=== PATIENT | male | born 1950 | race Caucasian/White ===

== ENCOUNTER 2020-06-01 09:33 | Day surgery (SDC) | payer MEDICARE, SELFPAY ==
[2020-05-26 13:05] VITALS: BMI 25.0
--- NOTE | 2020-05-30 15:24 | P.CONAN_ITS ---
Documented by User: Edilma Last 05/30/20 15:25 HPI - Anesthesia Eval Consult details Narrative: 70yo M for Colonoscopy [facility] Past Medical History Medical History History of depression Hx of tongue cancer Umbilical hernia Surgical History Surgical History History of right inguinal hernia repair Hx of appendectomy Hx of colonoscopy Status post neck dissection Social History Social History Are you a primary workforce investment act career manager to a significant other at home: No Do you presently have visiting nurse or other home services: No Smoking Status: Former smoker Smoking Quit Date: 8 yrs ago Second Hand Smoke Exposure: No Use of substances other than those prescribed or required for medical reasons: Yes Substance Use Frequency: Occasionally Have you been hit, kicked, punched, or otherwise hurt by someone within the past year? If so, by whom?: No Advance Directives: No Advance Directives Information Provided: No Advance Directives on File: No Recently lost weight without trying: No Meds Allergies Allergy/AdvReac Type Severity Reaction Status Date / Time walnut Allergy Severe THROAT Verified 06/01/20 10:04 CLOSES Home Medications Medication Instructions Recorded Confirmed Type cqezkmpysiax-najcgblz-jmfccj 1 tab PO DAILY 05/26/20 05/26/20 History [Multivitamin 50 Plus] Exam Exam Date and Time: May 30, 2020 1524 Height,Weight and Vital Signs: Height 5 ft 5 in Weight 68.039 kg Assessment and Plan Assessment Anesthesia Assessment: Chart Reviewed Documented by User: Emanuel Stein 06/01/20 10:18 [facility] Past Medical History Medical History History of depression Hx of tongue cancer Umbilical hernia Surgical History Surgical History History of right inguinal hernia repair Hx of appendectomy Hx of colonoscopy Status post neck dissection Social History Social History Are you a primary workforce investment act career manager to a significant other at home: No Do you presently have visiting nurse or other home services: No Smoking Status: Former smoker Smoking Quit Date: 8 yrs ago Second Hand Smoke Exposure: No Use of substances other than those prescribed or required for medical reasons: Yes Substance Use Frequency: Occasionally Have you been hit, kicked, punched, or otherwise hurt by someone within the past year? If so, by whom?: No Advance Directives: No Advance Directives Information Provided: No Advance Directives on File: No Recently lost weight without trying: No Meds Allergies Allergy/AdvReac Type Severity Reaction Status Date / Time walnut Allergy Severe THROAT Verified 06/01/20 10:04 CLOSES Home Medications Medication Instructions Recorded Confirmed Type girkbwrwtoew-onpiloiw-fwveej 1 tab PO DAILY 05/26/20 05/26/20 History [Multivitamin 50 Plus] Exam Airway Mallampati Class: II TM Dist: >3cm Neck ROM: Full Loose/Missing/Broken Teeth: No (Poor dentition) Heart: rrr +s1s2 Lungs: cta b/l Assessment and Plan Assessment Anesthesia Assessment: Anesthesia Plan Discussed, Smoking Cess. Discussed and Chart Reviewed Final Anesthetic Review NPO: Yes ASA Class: III Final Preanesthetic Review: No Changes in Pt Med Stat, Meds/Allgs Chart Reviewed, Consent Obtained/Reviewed and Anes Risks/Benef Reviewed Patient Risk: Intermediate Procedure Risk: Low Assessment/Block/Sedation in SS: Assess/Block/Sedation-SS Anesthetic Plan Anesthetic Plan: MAC: Disposition: Standard PACU
[2020-06-01 10:06] VITALS: BP 130/82; PULSE 110; RESP 18; TEMP 36.5; O2SAT 96
[2020-06-01] MEDS: Lactated Ringers 1,000 ML 100 ML IVCONT (10:09)
[2020-06-01 11:38] VITALS: BP 103/65; PULSE 100; RESP 16; TEMP 37.2; O2SAT 100
--- NOTE | 2020-06-01 11:40 | PM.OP ---
Brief Operative Note Date of procedure: 06/01/20 Pre-op diagnosis: Screening Post-op diagnosis: other (Colon polyp, Diverticulosis, Internal hemorrhoids) Procedure: Colonoscopy to cecum with biopsy and removal of polyp Surgeon: Ceasar Altamirano Anesthesia: MAC Estimated blood loss (mL): 3.0 Pathology: other (A. Cecal polyp) Condition: stable Disposition: PACU
[2020-06-01 11:53] VITALS: BP 120/70; PULSE 98; RESP 20; TEMP 36.9; O2SAT 98
--- NOTE | 2020-06-01 12:22 | HO.POSTANES ---
Post Anesthesia Evaluation Post Anesthesia Evaluation Vital Signs: Vital Signs Temp Pulse Resp BP Pulse Ox 06/01/20 11:53 98.4 F 98 20 120/70 98 06/01/20 11:38 98.9 F 100 16 103/65 100 06/01/20 10:06 97.7 F 110 H 18 130/82 96 Anesthesia: Monitored Mental Status: Awake Pain Control: Satisfactory Nausea/Vomiting: None Hydration: Adequate Anesthesia-Related Issues: No Anes. Related Issues
--- NOTE | 2020-06-01 12:41 | OP_ITS ---
SURGEON: Ceasar Altamirano MD INDICATIONS: The patient presents for evaluation of colorectal cancer screening and personal history of tubular adenoma of the colon. Full consent has been obtained from him for this including risks of bleeding and perforation. PREOPERATIVE DIAGNOSIS: POSTOPERATIVE DIAGNOSIS: PROCEDURE PERFORMED: ESTIMATED BLOOD LOSS: COMPLICATIONS: ANESTHESIA: Monitored anesthesia care. ASSISTANTS: SPECIMENS: PREOPERATIVE DIAGNOSES: Colorectal cancer screening and personal history of tubular adenoma of the colon. POSTOPERATIVE DIAGNOSES: Colorectal cancer screening, personal history of tubular adenoma of the colon, small colon polyp, diverticulosis, and internal hemorrhoids. PROCEDURES PERFORMED: Colonoscopy to cecum with biopsy and removal of polyp. DESCRIPTION OF PROCEDURE: The patient was placed in the left lateral decubitus position. The digital rectal exam revealed no abnormalities. The Olympus video pediatric colonoscope was entered into the rectum and advanced easily to the cecum. Once in the cecum, I did identify cecal pouch with appendiceal orifice and a normal-appearing ileocecal valve. There was transillumination of light deep in the right lower quadrant. The entire cecum was well visualized and appeared normal other than a 4 mm polyp, which was biopsied and completely removed with cold biopsy forceps. The scope was slowly withdrawn assessing all mucosal surfaces carefully. Preparation was excellent. I did not visualize any other polyps, colitis, nor angiodysplasia. There was a mild amount of sigmoid diverticulosis. In the rectum, scope was retroflexed visualizing internal hemorrhoids, but no other pathology. The rectal mucosa appeared normal. The scope was straightened and withdrawn from the patient. He tolerated the procedure well and was returned to recovery area in stable condition. IMPRESSION: 1. Colon polyp, status post biopsy removal. 2. Diverticulosis. 3. Internal hemorrhoids. PLAN: The results of the biopsies will be checked. I would recommend a repeat colonoscopy in 5 years for further screening and surveillance. He will otherwise see me on a p.r.n. basis. MD ZINA Barahona/SERGEI / [id number]
== END 2020-06-01 13:00 | disposition home or self-care (01) ==
PROVIDERS: PCP Internal Medicine; Visit Provider Internal Medicine
PROC: 0DJD8ZZ Inspection of Lower Intestinal Tract, Via Natural or Artificial Opening Endoscopic (ICD-10-PCS; CPT 45378; principal; 2020-06-01 10:30)
DX: Z12.11 Encounter for screening for malignant neoplasm of colon (principal); Z86.010 Personal history of colon polyps; D12.0 Benign neoplasm of cecum; K57.30 Diverticulosis of large intestine without perforation or abscess without bleeding; K64.8 Other hemorrhoids; Z85.810 Personal history of malignant neoplasm of tongue; Z87.891 Personal history of nicotine dependence
CPT/HCPCS: 45380; 88305

== ENCOUNTER 2020-09-07 07:35 | Outpatient (REF) | payer MEDICARE, SELFPAY | END 2020-09-07 07:36 | disposition home or self-care (01) | LOC: HO.LAB 07:35 | PROVIDERS: PCP Internal Medicine; Visit Provider Internal Medicine | DX: Z20.822 Contact with and (suspected) exposure to COVID-19 (principal) | CPT/HCPCS: 36415; C9803; U0003; U0005 ==

== ENCOUNTER 2021-03-09 08:19 | Outpatient (REF) | payer MEDICARE, SELFPAY ==
[2021-03-09 10:25] LABS: Basophils Absolute Auto 0.1 X10*3/uL (0.0-0.2); Basophils Percent Auto 0.5 % (0-2); Eosinophils Absolute Auto 0.1 X10*3/uL (0.0-0.4); Eosinophils Percent Auto 0.7 % (0-4); Hematocrit 42.8 % (42-52); Imm Gran Abs Auto 0.08 X10*3/uL (0.00-0.03); Imm Gran Pct Auto 0.5 % (0.0-0.4); Lymphocytes Absolute Auto 1.4 X10*3/uL (1.2-4.9); Lymphocytes Percent Auto 9.4 % (20-40); MANUAL DIFF FLAG SCAN; Mean Corpuscular HGB Conc 32.7 g/dl (31.0-36.0); Mean Corpuscular Hemoglobin 33.3 pg (27.0-33.0); Mean Corpuscular Volume 101.7 fL (80-98); Mean Platelet Volume 8.4 fL (9.4-12.4); Monocytes Absolute Auto 1.7 X10*3/uL (0.1-1.2); Monocytes Percent Auto 11.1 % (2-11); Neutrophils Absolute Auto 11.6 X10*3/uL (2.0-8.3); Neutrophils Percent Auto 77.8 % (45-73); Platelet Count 389 X10*3/uL (160-400); Red Blood Count 4.21 X10*6/uL (4.60-5.80); Red Cell Distribution Width 13.9 % (11.0-16.0); SCAN SMEAR FLAG 1; White Blood Count 14.9 X10*3/uL (4.8-10.8)
[2021-03-09 11:05] LABS: SLIDE REVIEW VERIFIED
[2021-03-09 11:12] LABS: Alanine Aminotransferase 22 U/L (0-40); Albumin Level 3.9 g/dL (3.5-5.0); Alkaline Phosphatase 100 U/L (39-117); Anion Gap 15 (12-20); Aspartate Amino Transferase 42 U/L (5-37); Bilirubin Total 0.9 mg/dL (0.0-1.0); Blood Urea Nitrogen 5 mg/dL (9-16); Calcium 9.3 mg/dL (8.4-10.2); Carbon Dioxide 29 mmol/L (22-29); Chloride 95 mmol/L (96-108); Cholesterol 168 mg/dL; Estimated Glomerular Filt Rate > 60; Glucose Fasting 124 mg/dL (60-99); HDL Cholesterol 100 mg/dL; LDL Cholesterol Calculated 57 mg/dl; Potassium 4.2 mmol/L (3.3-5.1); Sodium 135 mmol/L (135-145); Total Protein 8.6 g/dL (6.5-8.0); Triglycerides 56 mg/dL
[2021-03-09 11:18] LABS: Prostate Specific Antigen 0.64 ng/mL (<0.05-4.0); TSH reflex Free T4 1.62 uIU/mL (0.32-4.0)
== END 2021-03-09 08:20 | disposition home or self-care (01) ==
LOC: HO.10HDL 08:19
PROVIDERS: Visit Provider Nurse Practitioner Family
DX: Z12.5 Encounter for screening for malignant neoplasm of prostate (principal); E78.5 Hyperlipidemia, unspecified
CPT/HCPCS: 36415; 80053; 80061; 84153; 84443; 85025

== ENCOUNTER 2022-01-10 08:50 | Outpatient (REF) | payer MEDICARE, SELFPAY ==
[2022-01-10 10:15] LABS: Basophils Absolute Auto 0.2 X10*3/uL (0.0-0.2); Basophils Percent Auto 0.9 % (0-2); Eosinophils Absolute Auto 0.1 X10*3/uL (0.0-0.4); Eosinophils Percent Auto 0.7 % (0-4); Hematocrit 42.5 % (42.0-52.0); Hemoglobin 14.4 g/dl (14.0-18.0); Imm Gran Abs Auto 0.05 X10*3/uL (0.00-0.03); Imm Gran Pct Auto 0.3 % (0.0-0.4); Lymphocytes Absolute Auto 1.7 X10*3/uL (1.2-4.9); Lymphocytes Percent Auto 9.2 % (20-40); MANUAL DIFF FLAG SCAN; Mean Corpuscular HGB Conc 33.9 g/dl (31.0-36.0); Mean Corpuscular Hemoglobin 34.4 pg (27.0-33.0); Mean Corpuscular Volume 101.4 fL (80.0-98.0); Mean Platelet Volume 9.1 fL (9.4-12.4); Monocytes Absolute Auto 1.7 X10*3/uL (0.1-1.2); Monocytes Percent Auto 9.4 % (2-11); Neutrophils Absolute Auto 14.6 x10*3/uL (2.0-8.3); Neutrophils Percent Auto 79.5 % (45-73); Platelet Count 332 X10*3/uL (160-400); Red Blood Count 4.19 X10*6/uL (4.60-5.80); Red Cell Distribution Width 13.1 % (11.0-16.0); SCAN SMEAR FLAG 1; White Blood Count 18.4 X10*3/uL (4.8-10.8)
[2022-01-10 10:23] LABS: Estimated Average Glucose 100 mg/dL; Hemoglobin A1c % 5.1 %
[2022-01-10 10:36] LABS: Alanine Aminotransferase 25 U/L (0-40); Albumin Level 3.9 g/dL (3.5-5.0); Alkaline Phosphatase 95 U/L (39-117); Anion Gap 17 (12-20); Aspartate Amino Transferase 52 U/L (5-37); Bilirubin Total 0.7 mg/dL (0.0-1.0); Blood Urea Nitrogen 5 mg/dL (9-16); Calcium 8.9 mg/dL (8.4-10.2); Carbon Dioxide 27 mmol/L (22-29); Chloride 95 mmol/L (96-108); Cholesterol 177 mg/dL; Estimated Glomerular Filt Rate > 60; Glucose Random 91 mg/dL (60-115); HDL Cholesterol 101 mg/dL; LDL Cholesterol Calculated 65 mg/dl; Potassium 4.2 mmol/L (3.3-5.1); Sodium 135 mmol/L (135-145); Total Protein 8.8 g/dL (6.5-8.0); Triglycerides 57 mg/dL
[2022-01-10 10:44] LABS: SLIDE REVIEW VERIFIED
[2022-01-10 10:54] LABS: Free T4 (Free Thyroxine) 0.92 ng/dL (0.71-1.85); Prostate Specific Antigen Scr 0.55 ng/mL (<0.05-4.0); Thyroid Stimulating Hormone 0.88 uIU/mL (0.32-4.0)
[2022-01-10 11:10] LABS: Folate 16.9 ng/mL (> or = 4.0); Vitamin B12 392 pg/mL (200-900)
[2022-01-14 19:07] LABS: Testosterone, Total 383 ng/dL (250-1100)
== END 2022-01-10 08:51 | disposition home or self-care (01) ==
LOC: HO.10HDL 08:50
PROVIDERS: Visit Provider Internal Medicine
DX: Z12.5 Encounter for screening for malignant neoplasm of prostate (principal); R73.02 Impaired glucose tolerance (oral); E78.00 Pure hypercholesterolemia, unspecified
CPT/HCPCS: 36415; 80053; 80061; 82607; 82746; 83036; 84153; 84403; 84439; 84443; 85025

== ENCOUNTER 2022-01-24 08:09 | Outpatient (REF) | payer MEDICARE, SELFPAY ==
[2022-01-24 10:36] LABS: MANUAL DIFF FLAG NO
[2022-01-24 10:44] LABS: Basophils Absolute Auto 0.1 X10*3/uL (0.0-0.2); Basophils Percent Auto 1.3 % (0-2); Eosinophils Absolute Auto 0.2 X10*3/uL (0.0-0.4); Eosinophils Percent Auto 2.3 % (0-4); Hematocrit 40.9 % (42.0-52.0); Hemoglobin 13.8 g/dl (14.0-18.0); Imm Gran Abs Auto 0.03 X10*3/uL (0.00-0.03); Imm Gran Pct Auto 0.4 % (0.0-0.4); Lymphocytes Absolute Auto 1.8 X10*3/uL (1.2-4.9); Lymphocytes Percent Auto 26.3 % (20-40); Mean Corpuscular HGB Conc 33.7 g/dl (31.0-36.0); Mean Corpuscular Hemoglobin 33.4 pg (27.0-33.0); Mean Platelet Volume 10.6 fL (9.4-12.4); Monocytes Absolute Auto 0.8 X10*3/uL (0.1-1.2); Monocytes Percent Auto 11.5 % (2-11); Neutrophils Absolute Auto 4.1 x10*3/uL (2.0-8.3); Neutrophils Percent Auto 58.2 % (45-73); Platelet Count 274 X10*3/uL (160-400); Red Blood Count 4.13 X10*6/uL (4.60-5.80); Red Cell Distribution Width 12.7 % (11.0-16.0)
== END 2022-01-24 08:10 | disposition home or self-care (01) ==
LOC: HO.10HDL 08:09
PROVIDERS: Visit Provider Internal Medicine
DX: D72.829 Elevated white blood cell count, unspecified (principal)
CPT/HCPCS: 36415; 85025

== ENCOUNTER 2023-03-02 09:06 | Inpatient (IN) | payer MEDICARE, SELFPAY ==
[2023-03-02] VITALS (8 sets, daily range): BP systolic 120–144; BP diastolic 63–81; PULSE 77–106; RESP 16–20; TEMP 36.4–36.9; O2SAT 93–99; BMI 23.2
--- NOTE | ~2023-03-02 | CT_ITS ---
EXAMINATION: CT HEAD WITHOUT CONTRAST CT CERVICAL SPINE WITHOUT CONTRAST CLINICAL INFORMATION: Fall. Possible head trauma. COMPARISON: Remote CT scan of the head 11/21/2012. TECHNIQUE: Multidetector CT imaging of the head and cervical spine was performed without the use of intravenous contrast. Coronal and sagittal reformatted images were generated at the technologist workstation. This CT examination was performed using dose optimization techniques as appropriate, variously including the following: *Automated exposure control *Adjustment of mA and/or kV according to patient size (this includes techniques or standardized protocols for targeted exams where dose is matched to indication/reason for exam; i.e. extremities or head) *Use of iterative reconstruction technique DLP: 1042 mGy-cm. FINDINGS: CT head: There is no evidence of acute intracranial hemorrhage or territorial infarction. No abnormal mass-effect or midline shift is seen. Eid to white matter differentiation is well preserved. No extra-axial fluid collections are identified. The ventricles and sulci are commensurately prominent consistent with moderate diffuse volume loss, including the posterior fossa structures. There are relatively extensive areas of low-attenuation in the periventricular subcortical white matter, most consistent with chronic microvascular ischemic changes. There are chronic lacunar infarcts in the basal ganglia bilaterally. There have been bilateral lens extractions. There are no acute osseous findings. There appear to be sequelae of relatively recent extractions in the bilateral maxillae. The mastoid air cells are well-aerated. There is minimal mucoperiosteal thickening in the left frontoethmoidal recess CT cervical spine: There is overall straightening of the normal cervical lordosis. There is a retrolisthesis of C3 on C4 and there are retrolistheses of C5 on C6 and C6 on C7. There is multilevel narrowing of intervertebral disc height with marginal endplate osteophytes particularly anteriorly and toward the right at C5-C6 and C6-C7. Vertebral body heights are maintained, and no fractures are demonstrated. The lateral masses of C1 and C2 are normally aligned and the dens is intact. There are severe facet arthropathic changes at multiple levels, most prominent on the left in the upper cervical region. The cervicomedullary junction and spinal cord are grossly unremarkable. The paraspinal soft tissues are unremarkable. The imaged lung apices are clear. CT/CT cervical spine wo IV con IMPRESSION: 1. There are no acute bleeds or territorial infarcts. No masses are demonstrated. 2. There are no acute fractures or subluxations in the cervical spine. There are multilevel spondylitic and facet arthropathic changes. 3. Intracranially, there is diffuse volume loss and there are chronic microvascular ischemic changes and lacunar infarcts.
--- NOTE | ~2023-03-02 | XR_ITS ---
EXAMINATION: XR LUMBOSACRAL SPINE CLINICAL INFORMATION: Back pain COMPARISON: Previous x-ray from 2011 TECHNIQUE: Three views of the lumbosacral spine. FINDINGS: There is mild curvature of the lumbar sacral spine to the right. Bone alignment is otherwise normal. There is a mild compression fracture of the superior endplate of the L1 vertebral body. The bones appear osteopenic. Disc spaces are normal. There is lower lumbar spine facet arthritis. There is atherosclerotic disease. XR/XR lumbar spine 2-3V IMPRESSION: Unremarkable examination. Mild L1 compression fracture. Degenerative changes.
--- NOTE | ~2023-03-02 | XR_ITS ---
EXAMINATION: CR CHEST CLINICAL INFORMATION: Cough. COMPARISON: Chest x-ray dated 11/21/2012. TECHNIQUE: 2 views of the chest were obtained on 4 images. FINDINGS: EKG leads overlie the chest. The cardiomediastinal silhouette is within normal limits in size. Calcification of the aortic arch is seen. Lungs bilaterally are symmetrically hyperinflate with thickening of the airways d, suggesting underlying obstructive lung disease. Patchy consolidation is seen in the right lower lobe, consistent with pneumonia. There is also some more linear appearing opacities in the right middle lobe, possibly atelectasis Mild linear reticular opacities also seen in the left mid and lower lung, consistent with mild atelectasis. No significant effusion or pneumothorax. Osteopenia is suggested. XR/XR chest 2V IMPRESSION: 1. Findings are suspicious for right lower lobe pneumonia. 2. More linear opacities are seen in the right middle lobe and left mid and lower lung, likely representing atelectasis. Follow-up chest x-ray recommended to exclude evolving infiltrates in the right middle lobe and in the left lung base.
--- NOTE | 2023-03-02 09:46 | PC.NURSE ---
patient a&ox3, iv previously inserted by ems, monitoring coordinator applied pt nsr on monitor, vss, pt c/o lower back pain 04/30, abd noted to be firm/distended which patient states is like that all the time, pt also doing radiation for throat ca
--- NOTE | 2023-03-02 10:12 | PC.NURSE ---
seizure precautions placed due to pt feeling he had a seizure prior to fall.
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
--- NOTE | 2023-03-02 11:28 | ECG_ITS ---
Test Reason : FALL Blood Pressure : / mmHG Vent. Rate : 104 BPM Atrial Rate : 104 BPM P-R Int : 168 ms QRS Dur : 072 ms QT Int : 340 ms P-R-T Axes : 082 -29 053 degrees QTc Int : 447 ms Sinus tachycardia with PACs Low voltage QRS Borderline ECG When compared with ECG of 21-NOV-2012 01:58, QRS axis Shifted left Referred By: Eden Haile Electronically Signed By:Ahmet Garcia
[2023-03-02] MEDS: Albuterol/Iprat 2.5/0.5MG 3 ML AMPUL.NEB INHALE (12:02)
[2023-03-02] MEDS: 0.9 % Sodium Chloride 500 ML 999 ML IV (12:06)
[2023-03-02] MEDS: LORazepam 2 MG/ML VIAL 1 MG IVPUSH (12:13)
--- NOTE | 2023-03-02 12:21 | PC.NURSE ---
pt axox4, respirations even and unlabored, sats 97% RA, sinus tachy on monitor 105 bpm, skin wpd, pt responding appropriately, wheezing/crackles noted upon auscultating lung sounds, PERRLA, neuros intact. pt arrived via ems with lower back pain d/t fall out of bed this morning; pt unsure headstrike/loc. pt reports felt shocking sensation before falling out of bed. pt states etoh use; last drink last night; ciwa 0 pt denies hx withdrawal sx. respiratory to bedside. ivf infusing; pt medicated per mar. all needs met at this time, call carlson within reach.
[2023-03-02 12:49] LABS: MANUAL DIFF FLAG NO
[2023-03-02 12:51] LABS: Basophils Percent Auto 0.4 % (0-2); Eosinophils Percent Auto 0.3 % (0-4); Hemoglobin 12.8 g/dl (14.0-18.0); Imm Gran Abs Auto 0.05 X10*3/uL (0.00-0.03); Imm Gran Pct Auto 0.6 % (0.0-0.4); Lymphocytes Absolute Auto 0.4 X10*3/uL (1.2-4.9); Lymphocytes Percent Auto 5.4 % (20-40); Mean Corpuscular HGB Conc 33.7 g/dl (31.0-36.0); Mean Corpuscular Hemoglobin 32.2 pg (27.0-33.0); Mean Corpuscular Volume 95.7 fL (80.0-98.0); Mean Platelet Volume 8.1 fL (9.4-12.4); Monocytes Absolute Auto 0.9 X10*3/uL (0.1-1.2); Neutrophils Absolute Auto 6.6 x10*3/uL (2.0-8.3); Neutrophils Percent Auto 82.3 % (45-73); Platelet Count 209 X10*3/uL (160-400); Red Blood Count 3.97 X10*6/uL (4.60-5.80); Red Cell Distribution Width 13.1 % (11.0-16.0)
[2023-03-02 12:53] LABS: Appearance Urine Clear; Color Urine Yellow; Glucose Urine UA Negative (Negative); Leukocyte Esterase Urine Negative (Negative); Nitrite Urine Negative (Negative); Specific Gravity - Urine <= 1.005 (1.005-1.025); Urine Blood Negative (Negative); Urine Ketones 15 mg/dL (Negative); Urine Protein Negative (Neg-Trace)
[2023-03-02 13:04] LABS: Amphetamine Screen Urine Not Detected (Not Detect); Barbiturates, Urine Not Detected (Not Detect); Benzodiazepines Screen Urine Not Detected (Not Detect); Cannabinoid Screen Urine POSITIVE (Not Detect); Cocaine Screen Urine Not Detected (Not Detect); Fentanyl, urine Not Detected (Not Detect); Opiate Screen Urine Not Detected (Not Detect); Phencyclidine Screen Urine Not Detected (Not Detect)
[2023-03-02 13:06] LABS: Prothrombin Time 11.9 SEC (11.1-13.3)
[2023-03-02 13:08] LABS: Lactic Acid 1.7 mmol/L (0.5-2.0)
[2023-03-02 13:12] LABS: Alanine Aminotransferase 19 U/L (0-40); Albumin Level 3.3 g/dL (3.5-5.0); Alkaline Phosphatase 80 U/L (39-117); Anion Gap 14 (12-20); Aspartate Amino Transferase 40 U/L (5-37); Bilirubin Direct 0.6 mg/dL (0.0-0.5); Bilirubin Total 1.1 mg/dL (0.0-1.0); Blood Urea Nitrogen 5 mg/dL (9-16); Calcium 8.9 mg/dL (8.4-10.2); Carbon Dioxide 25 mmol/L (22-29); Chloride 96 mmol/L (96-108); Creatinine Clr Calc Pharmacy 102.1; Estimated Glomerular Filt Rate > 60; Glucose Random 105 mg/dL (60-115); Magnesium 1.7 mg/dL (1.6-2.6); Potassium 4.1 mmol/L (3.3-5.1); Sodium 131 mmol/L (135-145); Total Protein 7.9 g/dL (6.5-8.0)
[2023-03-02 13:15] LABS: B Type Natriuretic Peptide 111 pg/mL (<100)
[2023-03-02 13:19] LABS: Troponin-I High Sensitivity 6.6 ng/L (<3.5-35.0)
[2023-03-02 13:29] LABS: Ethanol < 10 mg/dL
--- NOTE | 2023-03-02 14:55 | P.HPHOSP_ITS ---
the patient was seen and evaluated with CORBIN Gonzalez. I agree with his note, assessment and plan with the following. 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 Found to have evidence of pneumonia and hyponatremia w alcohol withdrawal. Start Ab of Ceftriaxone and Azithromycin Phenobarb protocol Water restrection , follow BMP for Na Rest of evaluations by PA note. History of Present Illness Date of Service: 03/02/23 Attending physician on admission: Zaira Blackburn Chief Complaint: Generalized weakness, fall Pt is a 72-year-old male with a PMH significant for?tonsillar cancer started on chemotherapy 2 1/2 weeks ago, fatty liver, chronic back and hip pain, and alcohol use disorder who presents to the ED with?generalized weakness and evaluation for recent fall out of bed this morning. Patient states that yesterday during the day he had chills, subjective fever, and diaphoresis, which seemingly resolved by the end of the night. Sometime during the middle of the night patient said that ?something happened? where he was ?blown off the bed? and then stuck under furniture for a couple of hours. Patient was unable to elaborate on events. Cold patient's who further clarified, stating that approximately 130 in the morning patient started yelling for his who came into his room and saw him half sitting up in half lying on the floor. At that time he stated that a ?shock? went up and down his back which jolted him out of bed. was able to lay the patient down on the floor, but took until 06:00 to convince him to come to the hospital. reports that for the past 3-4 days patient has had difficulty walking and eating and drinking very little except for alcohol d/t feeling like his tongue is on fire. Patient has a long history of heavy alcohol use, apparently drinking 20+ beers daily for the past 30+ years. However patient has recently started radiation for tonsillar cancer and now consumes around 10 beers a day. states patient is mostly inactive during the day just sitting in his kitchen chair watching TV and drinking beer. Both patient and deny any history of alcohol withdrawal or history of withdrawal seizures. Patient reports feeling fatigued ever since starting radiation therapy. Apparently had an injury to his back many years ago and has experienced chronic lower back and hip pain since then, but moderately well controlled until this past week. Denies chest pain/pressure, palpitations. Chronic nonproductive cough. Denies hallucinations. No abdominal pain. In the ED patient was afebrile but tachycardic up to 106 and hypertensive at 140/81, satting at 99% on RA. Labs were significant for H&H 12.8/38.0, sodium of 131, CPK 454. Tox screen negative for ethyl alcohol. UA negative for UTI. CXR showed suspicion for right lower lobe pneumonia and linear opacity seen in the right middle lobe and left mid and lower lung, likely atelectasis but cannot exclude evolving infiltrates. X-ray of lumbar spine unremarkable with mild L1 compression fracture and deep degenerative changes. CT?of head showed no acute bleeds, territorial infarcts, or masses. Also showed diffuse intracranial vol ume loss and chronic microvascular ischemic changes and lacunar infarcts. CT of cervical spine found no acute fracture or subluxation, but did show multilevel spondylitic and facet arthropathic changes. EKG demonstrated sinus tachycardia of 104 with no evidence of ST or depressions. Pt was treated with DuoNeb, IVF, lorazepam, ceftriaxone, azithromycin, omeprazole, and start on phenobarb protocol. Pt will be admitted to the hospital under observation on telemetry for generalized weakness in the setting of community-acquired pneumonia and alcohol withdrawal. 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 Father No problems noted. Surgical History History of cataract surgery History of right inguinal hernia repair Hx of appendectomy Hx of colonoscopy Status post neck dissection Social History Housing: House Are you a primary customer care agent to a significant other at home: No Do you presently have visiting nurse or other home services: No Alcohol intake: never Patient Tobacco Use Status: Former Tobacco user Tobacco use type: Cigarette Years Smoked: stopped 2012 Smoked in Last 30 Days: No e-Cigarette/Vaping Use: Never Used Second Hand Smoke Exposure: No Use of substances other than those prescribed or required for medical reasons: No Advance Directives: No service: No Current occupational status: retired Meds Allergies Allergy/AdvReac Type Severity Reaction Status Date / Time walnut Allergy Severe THROAT Verified 03/02/23 09:37 CLOSES Active Medications: Current Medications Azithromycin 500 mg/ Sodium (Chloride) 250 mls @ 125 mls/hr IV ONCE ONE Stop: 03/02/23 16:17 Pharmacy Consult (Consult Rx Etoh Phenob Im/Po) 1 each MISCELLANE ONCE PRN; Protocol PRN Reason: Consult order Pharmacy Consult (Consult Rx Perform Med Rec) 1 each MISCELLANE ONCE STA Stop: 03/02/23 14:38 Phenobarbital (Phenobarbital 15 Mg Tablet) 45 mg PO BID KARISHMA; Protocol Stop: 03/04/23 21:01 Phenobarbital (Phenobarbital 30 Mg Tablet) 30 mg PO BID KARISHMA; Protocol Stop: 03/06/23 21:01 Phenobarbital (Phenobarbital 30 Mg Tablet) 30 mg PO DAILY KARISHMA; Protocol Stop: 03/08/23 09:01 Phenobarbital Sodium (Phenobarbital Sodium 130 Mg/Ml Im Once) 255 mg IM ONCE ONE; Protocol Stop: 03/02/23 15:01 Phenobarbital Sodium (Phenobarbital Sodium 130 Mg/Ml Vial Im Q3hx2) 191 mg IM Q3H KARISHMA; Protocol Stop: 03/02/23 21:01 Home Medications Medication Instructions Recorded Confirmed Last Taken Type ltxyekfkpiit-kexafrfe-iebnxc 1 tab PO DAILY 05/26/20 03/02/23 03/01/23 History tablet (Multivitamin 50 Plus tablet) Magic Mouthwash W/ Nystatin 10 ml PO Q4H PRN throat discomfort 03/02/2302/19 History fluconazole 200 mg tablet 200 mg PO DAILY 03/02/23 03/02/23 03/01/23 History folic acid 1 mg tablet 1 mg PO DAILY 03/02/23 03/02/23 03/01/23 History thiamine HCl (vitamin B1) 100 mg 100 mg PO DAILY 03/02/23 03/02/23 03/01/23 History tablet (Vitamin B-1) Physical Exam Vital Signs and Narrative: Vital Signs: Last Vital Signs Temp 97.8 F 03/02/23 09:37 Pulse 106 H 03/02/23 12:17 Resp 16 03/02/23 12:17 BP 140/77 H 03/02/23 12:17 Pulse Ox 96 03/02/23 12:17 O2 Del Method Room Air 03/02/23 12:17 BMI result Body Mass Index 23.2 Constitutional: Alert, somnolent but arousable, frail-looking, in no acute distress. Mental Status: Oriented to person, place and time. Eyes: Pupils are equal, round, and reactive to light. Ear, Nose, and Throat: Oropharynx clear, mucous membranes moist. Ears and nose without deformities. Trachea midline. Respiratory: Mild diffuse expiratory rhonchi. Cardiovascular: S1, S2, tachy. No murmurs, rubs, or gallops. Gastrointestinal: Abdomen soft, non-tender, non-distended. Normal bowel sounds. Neurologic: Cranial nerves II-XII are grossly intact bilaterally. No focal neurological deficits. Moves all extremities spontaneously. Skin: No rashes or lesions noted. Musculoskeletal: No cyanosis or clubbing. Extremities: No edema. Psychiatric: Normal mood and affect. Results Labs 03/02/23 12:44 03/02/23 12:44 Labs: Laboratory Results - last 24 hr 03/02/23 03/02/23 03/02/23 12:44 12:44 12:44 MCV 95.7 MCH 32.2 MCHC 33.7 RDW 13.1 Plt Count 209 MPV 8.1 L Immature Gran % (Auto) 0.6 H Neut % (Auto) 82.3 H Lymph % (Auto) 5.4 L [place] % (Auto) 11.0 Eos % (Auto) 0.3 Baso % (Auto) 0.4 Lymph # (Auto) 0.4 L [place] # (Auto) 0.9 Eos # (Auto) 0.0 Baso # (Auto) 0.0 Abs Immat Gran (auto) 0.05 H Absolute Neuts (auto) 6.6 Absolute Nucleated RBC 0.000 Nucleated RBC % (auto) 0.0 PT 11.9 INR 1.0 Anion Gap 14 Estim Creat Clear Calc 102.1 Estimated GFR > 60 Random Glucose 105 Lactic Acid Calcium 8.9 Magnesium 1.7 Total Bilirubin 1.1 H Direct Bilirubin 0.6 H AST 40 H ALT 19 Alkaline Phosphatase 80 Total Creatine Kinase 454 H B-Natriuretic Peptide Total Protein 7.9 Albumin 3.3 L Urine Color Urine Appearance Urine pH Ur Specific [place] Urine Protein Urine Glucose (UA) Urine Ketones Urine Blood Urine Nitrite Ur Leukocyte Esterase Urine Opiates Screen Urine Fentanyl Screen Ur Barbiturates Screen Ur Phencyclidine Scrn Ur Amphetamines Screen U Benzodiazepines Scrn Urine Cocaine Screen U Marijuana (THC) Screen Ethyl Alcohol 03/02/23 03/02/23 03/02/23 12:44 12:44 12:44 MCV MCH MCHC RDW Plt Count MPV Immature Gran % (Auto) Neut % (Auto) Lymph % (Auto) [place] % (Auto) Eos % (Auto) Baso % (Auto) Lymph # (Auto) [place] # (Auto) Eos # (Auto) Baso # (Auto) Abs Immat Gran (auto) Absolute Neuts (auto) Absolute Nucleated RBC Nucleated RBC % (auto) PT INR Anion Gap Estim Creat Clear Calc Estimated GFR Random Glucose Lactic Acid 1.7 Calcium Magnesium Total Bilirubin Direct Bilirubin AST ALT Alkaline Phosphatase Total Creatine Kinase B-Natriuretic Peptide 111 H Total Protein Albumin Urine Color Urine Appearance Urine pH Ur Specific [place] Urine Protein Urine Glucose (UA) Urine Ketones Urine Blood Urine Nitrite Ur Leukocyte Esterase Urine Opiates Screen Urine Fentanyl Screen Ur Barbiturates Screen Ur Phencyclidine Scrn Ur Amphetamines Screen U Benzodiazepines Scrn Urine Cocaine Screen U Marijuana (THC) Screen Ethyl Alcohol < 10 03/02/23 03/02/23 12:44 12:44 MCV MCH MCHC RDW Plt Count MPV Immature Gran % (Auto) Neut % (Auto) Lymph % (Auto) [place] % (Auto) Eos % (Auto) Baso % (Auto) Lymph # (Auto) [place] # (Auto) Eos # (Auto) Baso # (Auto) Abs Immat Gran (auto) Absolute Neuts (auto) Absolute Nucleated RBC Nucleated RBC % (auto) PT INR Anion Gap Estim Creat Clear Calc Estimated GFR Random Glucose Lactic Acid Calcium Magnesium Total Bilirubin Direct Bilirubin AST ALT Alkaline Phosphatase Total Creatine Kinase B-Natriuretic Peptide Total Protein Albumin Urine Color Yellow Urine Appearance Clear Urine pH 7.0 Ur Specific [place] <= 1.005 Urine Protein Negative Urine Glucose (UA) Negative Urine Ketones 15 Urine Blood Negative Urine Nitrite Negative Ur Leukocyte Esterase Negative Urine Opiates Screen Not Detected Urine Fentanyl Screen Not Detected Ur Barbiturates Screen Not Detected Ur Phencyclidine Scrn Not Detected Ur Amphetamines Screen Not Detected U Benzodiazepines Scrn Not Detected Urine Cocaine Screen Not Detected U Marijuana (THC) Screen POSITIVE H Ethyl Alcohol Imaging Radiologist's Impressions: Impressions Chest X-Ray 03/02/23 11:47 IMPRESSION: 1. Findings are suspicious for right lower lobe pneumonia. 2. More linear opacities are seen in the right middle lobe and left mid and lower lung, likely representing atelectasis. Follow-up chest x-ray recommended to exclude evolving infiltrates in the right middle lobe and in the left lung base. Lumbar Spine X-Ray 03/02/23 11:49 IMPRESSION: Unremarkable examination. Mild L1 compression fracture. Degenerative changes. Cervical Spine CT 03/02/23 12:00 IMPRESSION: 1. There are no acute bleeds or territorial infarcts. No masses are demonstrated. 2. There are no acute fractures or subluxations in the cervical spine. There are multilevel spondylitic and facet arthropathic changes. 3. Intracranially, there is diffuse volume loss and there are chronic microvascular ischemic changes and lacunar infarcts. Head CT 03/02/23 12:00 IMPRESSION: 1. There are no acute bleeds or territorial infarcts. No masses are demonstrated. 2. There are no acute fractures or subluxations in the cervical spine. There are multilevel spondylitic and facet arthropathic changes. 3. Intracranially, there is diffuse volume loss and there are chronic microvascular ischemic changes and lacunar infarcts. Assessment and Plan (1) Pneumonia: Status: Acute (2) Alcohol dependence: Status: Acute Plan Pt is a 72-year-old male with a PMH significant for?tonsillar cancer started on chemotherapy 2 1/2 weeks ago, fatty liver, chronic back and hip pain, and alcohol use disorder who presents to the ED with?generalized weakness and evaluation for recent fall out of bed this morning. Pt will be admitted to the hospital under observation on telemetry for generalized weakness in the setting of community-acquired pneumonia and alcohol withdrawal. Pneumonia CXR suspicious for right lower lobe pneumonia CXR with linear opacities in right middle lobe and left mid and lower lung infiltrates, likely atelectasis but not able to rule out infiltrates Ceftriaxone, azithromycin, started 03/02/2023 Acute alcohol withdrawal Pt with 30+ year hx of drinking 20+ beers daily, now down to 10 beers daily d/t dysphagia secondary to tonsillar cancer currently on radiation 5 days a week No tremors noted, does not seem to be responding to visual auditory hallucinations Phenobarb protocol Daily multivitamin, folic acid, thiamine, Famotidine 20 mg p.o. b.i.d. Follow Mag jeanine, BMP IVF: Lactated Ringer's CIWA scale Seizure protocols Addiction Medicine consult Monitor on telemetry Hyponatremia Sodium 131 at time of presentation Patient given IVF in ED, placed on maintenance fluids Follow BMP Generalized weakness/deconditioning Multifactorial: Patient started radiation for tonsillar cancer 5 days a week 2 1/2 weeks ago, heavy alcohol use daily, reduced p.o. intake of solids and any other fluids, little ambulation/exercise, pneumonia Pt fell out of bed earlier this morning, has been having difficulty ambulating at home past 4-5 days PT consult Elevated CPK Likely secondary to fall Patient receiving IVF Acute on chronic back pain Analgesics for pain management Full Code Attending:?Dr. Blackburn DVT Prophylaxis: Lovenox Pt will be admitted to the hospital under observation on telemetry for generalized weakness in the setting of community-acquired pneumonia and alcohol withdrawal. Time Spent With Patient Time: Total time managing care of this patient today ____ minutes. Quality Stroke Does the patient have a stroke diagnosis?: No VTE Prior VTE?: No VTE Risk Level:: Medical - moderate - high VTE Device Contraindication: Treatment Not Indicated VTE Drug Contraindication: N/A - Med Ordered
[2023-03-02] MEDS: cefTRIAXone sodium 1 GM in 0.9 % Sodium Chloride 50 ML IV (15:12)
[2023-03-02] MEDS: PHENobarbitaL sodium 130 MG/ML IM ONCE 255 MG IM (15:12)
[2023-03-02 15:35] LABS: Troponin-I High Sensitivity 4.8 ng/L (<3.5-35.0)
--- NOTE | 2023-03-02 15:36 | PC.NURSE ---
1st abx hung; order for blood cultures placed post administration of abx.
--- NOTE | 2023-03-02 15:48 | PHA.MEDREC ---
Pharmacy Consult ? Medication Reconciliation Pharmacy has completed the medication reconciliation. Spoke to patient to confirm meds. Patient takes magic mouthwash with nystatin.
[2023-03-02] MEDS: Azithromycin 500 MG in 0.9 % Sodium Chloride 250 ML 125 MG IV (16:46)
[2023-03-02] MEDS: Thiamine HCL 100 MG TABLET PO (16:49)
[2023-03-02] MEDS: Omeprazole 20 MG CAPSULE.DR PO (16:49)
[2023-03-02] MEDS: Folic Acid 1 MG TABLET PO (16:49)
[2023-03-02] MEDS: Multivitamin TABLET 1 TAB PO (16:49)
[2023-03-02] MEDS: Morphine Sulfate 4 MG/ML CARTRIDGE IVPUSH (17:01)
--- NOTE | 2023-03-02 17:20 | PC.NURSE ---
report given to [facility] nurse
--- NOTE | 2023-03-02 17:26 | MHC.EDTECH ---
Sent blood culture bottels to lab around 1625pm. I called lab around 1640 they stated they did received the blood cultures but have not received them in the computer. It is 1727pm and still shows pending, not received. SG
[2023-03-02] MEDS: PHENobarbitaL sodium 130 MG/ML VIAL IM Q3Hx2 191 MG IM ×2 (18:47→23:02)
[2023-03-02] MEDS: Enoxaparin Sodium 40 MG/0.4 ML SYRINGE SUBCUT (18:48)
[2023-03-02] MEDS: 0.9 % Sodium Chloride 1,000 ML 100 ML IVCONT (18:49)
[2023-03-02] MEDS: 0.9 % Sodium Chloride Flush 3 ML SYRINGE IVFLUSH (23:07)
[2023-03-03] VITALS (8 sets, daily range): BP systolic 133–151; BP diastolic 67–83; PULSE 93–100; RESP 18–20; TEMP 36.4–37.7; O2SAT 93–96
[2023-03-03] MEDS: 0.9 % Sodium Chloride 1,000 ML 100 ML IVCONT ×3 (01:57→21:08)
[2023-03-03] MEDS: Omeprazole 20 MG CAPSULE.DR PO (05:32)
[2023-03-03 06:48] LABS: Hematocrit 39.5 % (42.0-52.0); Hemoglobin 13.1 g/dl (14.0-18.0); Mean Corpuscular HGB Conc 33.2 g/dl (31.0-36.0); Mean Corpuscular Hemoglobin 32.6 pg (27.0-33.0); Mean Corpuscular Volume 98.3 fL (80.0-98.0); Mean Platelet Volume 8.7 fL (9.4-12.4); Platelet Count 208 X10*3/uL (160-400); Red Blood Count 4.02 X10*6/uL (4.60-5.80); Red Cell Distribution Width 13.4 % (11.0-16.0); White Blood Count 8.9 X10*3/uL (4.8-10.8)
[2023-03-03 06:55] LABS: Anion Gap 17 (12-20); Blood Urea Nitrogen 3 mg/dL (9-16); Calcium 8.7 mg/dL (8.4-10.2); Carbon Dioxide 20 mmol/L (22-29); Chloride 98 mmol/L (96-108); Creatinine Clr Calc Pharmacy 115.8; Estimated Glomerular Filt Rate > 60; Glucose Random 79 mg/dL (60-115); Magnesium 1.8 mg/dL (1.6-2.6); Potassium 3.7 mmol/L (3.3-5.1); Sodium 131 mmol/L (135-145)
[2023-03-03] MEDS: Fluconazole 100 MG TABLET 200 MG PO (08:34)
[2023-03-03] MEDS: PHENobarbitaL 15 MG TABLET 45 MG PO ×2 (08:34→21:08)
[2023-03-03] MEDS: Thiamine HCL 100 MG TABLET PO (08:34)
[2023-03-03] MEDS: 0.9 % Sodium Chloride Flush 3 ML SYRINGE IVFLUSH ×3 (08:34→21:08)
[2023-03-03] MEDS: Folic Acid 1 MG TABLET PO (08:34)
[2023-03-03] MEDS: Multivitamin TABLET 1 TAB PO (08:34)
--- NOTE | 2023-03-03 09:44 | MHC.CM.PN ---
CM made multiple attempt to meet with Patient but Patient continue to appear to be sleeping soundly. CM spoke with /HCP/Tory @ [phone] and addressed IMM with her (original will be mailed certified letter to Tory and a copy has been placed on the chart). Patient lives in a house with his /HCP and he required no DME MANAGER MEDIA. Patient is documented to be a 2 assist and may benefit from a PT eval to assist with disposition(home is the goal). Patient has been receiving Radiation X 2 and a half weeks, 5 days/week a [facility]. PCP is Dr. Sydnee Parmar.
[2023-03-03] MEDS: Acetaminophen 325 MG TABLET 650 MG PO (11:35)
--- NOTE | 2023-03-03 12:19 | PM.EVENT ---
Event Note Date of Service: 03/03/23 Event Note: Addiction consult placed Chart reviewed, patient will be seen Sunday 03/04 Time Spent With Patient Time: Total time managing care of this patient today ____ minutes.
[2023-03-03] MEDS: cefTRIAXone sodium 1 GM in 0.9 % Sodium Chloride 50 ML IV (16:11)
[2023-03-03] MEDS: Enoxaparin Sodium 40 MG/0.4 ML SYRINGE SUBCUT (16:35)
[2023-03-03] MEDS: Azithromycin 500 MG in 0.9 % Sodium Chloride 250 ML 125 MG IV (16:35)
--- NOTE | 2023-03-03 18:37 | HO.PM.IMPN ---
Subjective Subjective Date of Service: 03/03/23 Interval History: Patient has been more somnolent since last night Arousable, but falls quickly back asleep after opening his eyes Minimally responsive to questions Does not have any acute complaints outside of dysphagia/odynophagia, still wants to attend radiation tomorrow Denies abdominal pain Has been experiencing urinary retention, patient's straight cathed last night for over 1000 mL, current bladder scan shows 700 mL Review of Systems Dysphagia/odynophagia Denies abdominal pain No chest pain/pressure, palpitations Physical Exam Vital Signs: Vital Signs: Last Vital Signs Temp 99.6 F 03/03/23 15:21 Pulse 94 03/03/23 15:12 Resp 20 03/03/23 15:12 BP 141/72 H 03/03/23 15:12 Pulse Ox 96 03/03/23 15:12 O2 Del Method Room Air 03/03/23 15:12 BMI result Body Mass Index 23.2 General: Alert, somnolent but arousable, easily falls back asleep, frail-looking, no acute distress Resp: Diffuse expiratory rhonchi CVS: S1, S2, RRR GI: +BS, NT, mild distention Skin: No rash Neuro: Cranial nerves II-XII grossly intact bilaterally. Motor grossly intact bilaterally Extremities: No edema Objective Data Active Medications Acetaminophen (Acetaminophen 325 Mg Tablet) 650 mg PO Q6H PRN PRN Reason: Pain, Mild (Pain Scale 1-3) Last Admin: 03/03/23 11:35 Dose: 650 mg Documented By: CATE Docusate Sodium (Docusate Sodium 100 Mg Capsule) 100 mg PO DAILY PRN PRN Reason: Constipation Enoxaparin Sodium (Enoxaparin Sodium 40 Mg/0.4 Ml Syringe) 40 mg SUBCUT Q24H [facility] Last Admin: 03/03/23 16:35 Dose: 40 mg Documented By: CATE Fluconazole (Fluconazole 100 Mg Tablet) 200 mg PO DAILY [facility] Last Admin: 03/03/23 08:34 Dose: 200 mg Documented By: CATE Folic Acid (Folic Acid 1 Mg Tablet) 1 mg PO DAILY [facility] Last Admin: 03/03/23 08:34 Dose: 1 mg Documented By: CATE Ceftriaxone Sodium 1 gm/ (Sodium Chloride) 50 mls @ 100 mls/hr IV Q24H [facility] Last Infusion: 08/13/23 17:03 Dose: 0 mls/hr Documented By: CATE Azithromycin 500 mg/ Sodium (Chloride) 250 mls @ 125 mls/hr IV Q24H [facility] Last Admin: 03/03/23 16:35 Dose: 125 mls/hr Documented By: CATE Sodium Chloride (Ns) 1,000 mls @ 100 mls/hr IVCONT .Q10H [facility] Last Admin: 03/03/23 11:13 Dose: 100 mls/hr Documented By: PJ Multivitamins/Vitamin C (Multivitamin Tablet) 1 tab PO DAILY [facility] Last Admin: 03/03/23 08:34 Dose: 1 tab Documented By: CATE Omeprazole (Omeprazole 20 Mg Capsule.Dr) 20 mg PO DAILY@0630 [facility] Last Admin: 03/03/23 05:32 Dose: 20 mg Documented By: MAJOR Pharmacy Consult (Consult Rx Etoh Phenob Im/Po) 1 each MISCELLANE ONCE PRN; Protocol PRN Reason: Consult order Phenobarbital (Phenobarbital 15 Mg Tablet) 45 mg PO BID [facility]; Protocol Stop: 03/04/23 21:01 Last Admin: 03/03/23 08:34 Dose: 45 mg Documented By: CATE Phenobarbital (Phenobarbital 30 Mg Tablet) 30 mg PO BID [facility]; Protocol Stop: 03/06/23 21:01 Phenobarbital (Phenobarbital 30 Mg Tablet) 30 mg PO DAILY [facility]; Protocol Stop: 03/08/23 09:01 Sodium Chloride (0.9 % Sodium Chloride Flush 3 Ml Syringe) 3 ml IVFLUSH QSHIFT [facility] Last Admin: 03/03/23 16:11 Dose: 3 ml Documented By: CATE Thiamine HCl (Thiamine Hcl 100 Mg Tablet) 100 mg PO DAILY [facility] Last Admin: 03/03/23 08:34 Dose: 100 mg Documented By: CATE Labs 03/03/23 06:24 03/03/23 06:24 Labs: Laboratory Results - last 24 hr 03/03/23 03/03/23 06:24 06:24 MCV 98.3 H MCH 32.6 MCHC 33.2 RDW 13.4 Plt Count 208 MPV 8.7 L Absolute Nucleated RBC 0.000 Nucleated RBC % (auto) 0.0 Anion Gap 17 Estim Creat Clear Calc 115.8 Estimated GFR > 60 Random Glucose 79 Calcium 8.7 Magnesium 1.8 Microbiology Microbiology Results: Microbiology 03/02/23 16:21 Blood Culture - Preliminary Blood - Venous No growth after 24 hours. 03/02/23 16:21 Blood Culture - Preliminary Blood - Venous No growth after 24 hours. 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 Pt was admitted to the hospital under observation on telemetry for generalized weakness in the setting of community-acquired pneumonia and alcohol withdrawal. Pneumonia CXR suspicious for right lower lobe pneumonia CXR with linear opacities in right middle lobe and left mid and lower lung infiltrates, likely atelectasis but not able to rule out infiltrates Continue Ceftriaxone, azithromycin, started 03/02/2023 Acute alcohol withdrawal Pt with 30+ year hx of drinking 20+ beers daily, now down to 10 beers daily d/t dysphagia secondary to tonsillar cancer currently on radiation 5 days a week No tremors noted, does not seem to be responding to visual auditory hallucinations Continue phenobarb protocol Daily multivitamin, folic acid, thiamine, Famotidine 20 mg p.o. b.i.d. Follow Mag jeanine, BMP IVF: normal saline CIWA scale Seizure protocols Addiction Medicine consult Monitor on telemetry Abdominal distention Pt seems mildly more distended than last night Pt denies abdominal pain Monitor, get imaging as warranted Urinary retention Pt had 1000 ml draining via straight cath last night, another 700 ml this afternoon Bladder scan and straight cath as necessary when bladder shows > 350-400ml Hyponatremia Sodium 131 at time of presentation, repeat 131 Patient given IVF in ED, placed on maintenance fluids Follow BMP Generalized weakness/deconditioning Multifactorial:? Patient started radiation for tonsillar cancer 5 days a week 2 1/2 weeks ago, heavy alcohol use daily, reduced p.o. intake of solids and any other fluids, little ambulation/exercise, pneumonia Pt fell out of bed earlier this morning, has been having difficulty ambulating at home past 4-5 days Pt currently nonabulatory, very weak PT consult Nutrition consult Elevated CPK Likely secondary to fall Patient receiving IVF Acute on chronic back pain Analgesics for pain management Full Code Attending:?Dr. Yeboah DVT Prophylaxis: Lovenox Pt require continued hospitalization d/t need for IV abx for pneumonia and PT evaluation for generalized weakness and deconditioning. Time Spent With Patient Time: Total time managing care of this patient today ____ minutes. Quality Stroke Does the patient have a stroke diagnosis?: No VTE Prior VTE?: No VTE Risk Level:: Medical - moderate - high VTE Device Contraindication: Treatment Not Indicated VTE Drug Contraindication: N/A - Med Ordered
[2023-03-04 02:55] VITALS: BP 137/77; PULSE 95; RESP 20; TEMP 36.8; O2SAT 94
[2023-03-04] MEDS: 0.9 % Sodium Chloride 1,000 ML 100 ML IVCONT (05:54)
[2023-03-04] MEDS: Omeprazole 20 MG CAPSULE.DR PO (05:54)
[2023-03-04 07:42] VITALS: BP 145/81; PULSE 92; RESP 16; TEMP 37.3; O2SAT 95
[2023-03-04] MEDS: 0.9 % Sodium Chloride Flush 3 ML SYRINGE IVFLUSH ×2 (08:13→15:07)
[2023-03-04] MEDS: Thiamine HCL 100 MG TABLET PO (08:13)
[2023-03-04] MEDS: Folic Acid 1 MG TABLET PO (08:13)
[2023-03-04] MEDS: Fluconazole 100 MG TABLET 200 MG PO (08:13)
[2023-03-04] MEDS: Multivitamin TABLET 1 TAB PO (08:13)
[2023-03-04] MEDS: PHENobarbitaL 15 MG TABLET 45 MG PO ×2 (08:13→21:14)
[2023-03-04] MEDS: Docusate Sodium 100 MG CAPSULE PO (08:19)
[2023-03-04 09:23] LABS: Anion Gap 15 (12-20); Blood Urea Nitrogen 3 mg/dL (9-16); Calcium 8.5 mg/dL (8.4-10.2); Carbon Dioxide 23 mmol/L (22-29); Chloride 91 mmol/L (96-108); Creatinine Clr Calc Pharmacy 105.7; Estimated Glomerular Filt Rate > 60; Glucose Random 86 mg/dL (60-115); Magnesium 1.6 mg/dL (1.6-2.6); Potassium 3.3 mmol/L (3.3-5.1); Sodium 126 mmol/L (135-145)
[2023-03-04 11:16] VITALS: BP 131/81; PULSE 94; RESP 16; TEMP 37.6; O2SAT 95
[2023-03-04 11:36] VITALS: BMI 23.2
--- NOTE | 2023-03-04 11:41 | MHC.CLN ---
RE: CONSULT PT WITH INCREASED NUTRITION RISK R/T CHRONIC POOR PO INTAKE SECONDARY TO ETOH ABUSE AND NEW DX TONSILLAR CA WITH ACTIVE CHEMO AND RAD TX DIET RX: REGULAR-APPROPRIATE MD STARTED ENSURE TID TO INCREASE KCALS SUPP TO PROVIDE 1050KCALS, 60G PROTEIN MONITOR PO INTAKE CLOSELY SEE ALSO FULL CLINICAL NUTRITION ASSESSMENT
--- NOTE | 2023-03-04 12:11 | HO.PM.IMPN ---
Subjective Subjective Date of Service: 03/04/23 Interval History: follow up Fall, weakness more awake today no pain Review of Systems Dysphagia/odynophagia Denies abdominal pain No chest pain/pressure, palpitations Physical Exam Vital Signs: Vital Signs: Last Vital Signs Temp 99.7 F 03/04/23 11:16 Pulse 94 03/04/23 11:16 Resp 16 03/04/23 11:16 BP 131/81 03/04/23 11:16 Pulse Ox 95 03/04/23 11:16 O2 Del Method Room Air 03/04/23 11:16 BMI result Body Mass Index 23.2 Appearing in no acute distress lung sounds are clear to auscultation heart regular rate rhythm, clear S1, S2 positive bowel sounds, abdomen is soft, nontender neuro patient is alert x3, no focal deficits Objective Data Active Medications Acetaminophen (Acetaminophen 325 Mg Tablet) 650 mg PO Q6H PRN PRN Reason: Pain, Mild (Pain Scale 1-3) Last Admin: 03/03/23 11:35 Dose: 650 mg Documented By: CATE Albuterol/Ipratropium (Albuterol/Iprat 2.5/0.5mg 3 Ml Ampul.Neb) 3 ml INHALE RQ4H WHILE AWAKE PRN PRN Reason: Shortness of Breath/Wheezing Docusate Sodium (Docusate Sodium 100 Mg Capsule) 100 mg PO DAILY PRN PRN Reason: Constipation Last Admin: 03/04/23 08:19 Dose: 100 mg Documented By: PJ Enoxaparin Sodium (Enoxaparin Sodium 40 Mg/0.4 Ml Syringe) 40 mg SUBCUT Q24H [facility] Last Admin: 03/03/23 16:35 Dose: 40 mg Documented By: CATE Fluconazole (Fluconazole 100 Mg Tablet) 200 mg PO DAILY [facility] Last Admin: 03/04/23 08:13 Dose: 200 mg Documented By: PJ Folic Acid (Folic Acid 1 Mg Tablet) 1 mg PO DAILY [facility] Last Admin: 03/04/23 08:13 Dose: 1 mg Documented By: PJ Ceftriaxone Sodium 1 gm/ (Sodium Chloride) 50 mls @ 100 mls/hr IV Q24H [facility] Last Infusion: 03/03/23 17:03 Dose: 0 mls/hr Documented By: CATE Azithromycin 500 mg/ Sodium (Chloride) 250 mls @ 125 mls/hr IV Q24H [facility] Last Infusion: 03/03/23 18:51 Dose: 0 mls/hr Documented By: CATE Multivitamins/Vitamin C (Multivitamin Tablet) 1 tab PO DAILY [facility] Last Admin: 03/04/23 08:13 Dose: 1 tab Documented By: PJ Omeprazole (Omeprazole 20 Mg Capsule.Dr) 20 mg PO DAILY@0630 [facility] Last Admin: 03/04/23 05:54 Dose: 20 mg Documented By: JOHN Pharmacy Consult (Consult Rx Etoh Phenob Im/Po) 1 each MISCELLANE ONCE PRN; Protocol PRN Reason: Consult order Phenobarbital (Phenobarbital 15 Mg Tablet) 45 mg PO BID [facility]; Protocol Stop: 03/04/23 21:01 Last Admin: 03/04/23 08:13 Dose: 45 mg Documented By: PJ Phenobarbital (Phenobarbital 30 Mg Tablet) 30 mg PO BID [facility]; Protocol Stop: 03/06/23 21:01 Phenobarbital (Phenobarbital 30 Mg Tablet) 30 mg PO DAILY [facility]; Protocol Stop: 03/08/23 09:01 Sodium Chloride (0.9 % Sodium Chloride Flush 3 Ml Syringe) 3 ml IVFLUSH QSHIFT [facility] Last Admin: 03/04/23 08:13 Dose: 3 ml Documented By: PJ Thiamine HCl (Thiamine Hcl 100 Mg Tablet) 100 mg PO DAILY [facility] Last Admin: 03/04/23 08:13 Dose: 100 mg Documented By: PJ Labs 03/03/23 06:24 03/04/23 08:33 Labs: Laboratory Results - last 24 hr 03/04/23 08:33 Anion Gap 15 Estim Creat Clear Calc 105.7 Estimated GFR > 60 Random Glucose 86 Calcium 8.5 Magnesium 1.6 Microbiology Microbiology Results: Microbiology 03/02/23 16:21 Blood Culture - Preliminary Blood - Venous No growth after 24 hours. 03/02/23 16:21 Blood Culture - Preliminary Blood - Venous No growth after 24 hours. 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 Pt was admitted to the hospital under observation on telemetry for generalized weakness in the setting of community-acquired pneumonia and alcohol withdrawal. CAP CXR suspicious for right lower lobe pneumonia Continue Ceftriaxone, azithromycin, started 03/02/2023 Acute alcohol withdrawal Pt with 30+ year hx of drinking 20+ beers daily, now down to 10 beers daily d/t dysphagia secondary to tonsillar cancer currently on radiation 5 days a week Continue phenobarb protocol Daily multivitamin, folic acid, thiamine, Famotidine 20 mg p.o. b.i.d. Addiction Medicine consult Monitor on telemetry Urinary retention urinating on his own bladder scan Q shift and straight cath as necessary Hyponatremia Sodium 126 today likely secondary to IV fluids Follow BMP Generalized weakness/deconditioning likely secondary to radiation for tonsillar cancer 5 days a week, heavy alcohol use daily, reduced p.o. intake of solids and any other fluids, little ambulation/exercise, pneumonia Pt currently nonabulatory, very weak PT consult rec> STR Nutrition consult> increase protein and add ensure Elevated CPK Likely secondary to fall trending down Acute on chronic back pain Analgesics for pain management Full Code Attending:?Dr. Stoddard DVT Prophylaxis: Lovenox Pt require continued hospitalization d/t need for IV abx for pneumonia and PT evaluation for generalized weakness and deconditioning. Time Spent With Patient Time: Total time managing care of this patient today ____ minutes. Quality Stroke Does the patient have a stroke diagnosis?: No VTE Prior VTE?: No VTE Risk Level:: Medical - moderate - high VTE Device Contraindication: Treatment Not Indicated VTE Drug Contraindication: N/A - Med Ordered
[2023-03-04] MEDS: Magnesium Sulfate/H2O 2 GM/50 ML PIGGYBACK IV (12:52)
--- NOTE | 2023-03-04 14:42 | MHC.RECOVRN ---
Addendum entered by Mini Yan RN 03/04/23 15:56: This screen writer returned to visit with patient, patient resting in bed, unable to wake up. Addiction/Recovery team to return at bedside tomorrow when pt awake. Original Note: This screen writer met with patient, patient presented to the ED with acute left sided backpain post fall. Pt was meeting with RN, IRON. This screen writer to return later to complete ETOH use hx and review recovery supports/harm reduction.
[2023-03-04] MEDS: cefTRIAXone sodium 1 GM in 0.9 % Sodium Chloride 50 ML IV (15:07)
[2023-03-04] MEDS: Azithromycin 500 MG in 0.9 % Sodium Chloride 250 ML 125 MG IV (15:08)
[2023-03-04] MEDS: Acetaminophen 325 MG TABLET 650 MG PO (15:08)
--- NOTE | 2023-03-04 15:16 | MHC.CM.PN ---
EMR reviewed and per MD rounds, pt is not medically cleared for D/C today. PT is recommending STR. This CM met with pt to discus STR options and he stated he needed to speak with his as he is not decided on going to STR vs returning home. CM will continue to follow.
[2023-03-04 15:40] VITALS: BP 136/76; PULSE 92; RESP 18; TEMP 37; O2SAT 94
[2023-03-04] MEDS: Enoxaparin Sodium 40 MG/0.4 ML SYRINGE SUBCUT (16:56)
[2023-03-04 19:10] VITALS: BP 136/70; PULSE 86; RESP 16; TEMP 37; O2SAT 96
[2023-03-05] VITALS (7 sets, daily range): BP systolic 115–140; BP diastolic 65–80; PULSE 88–98; RESP 14–20; TEMP 36.3–37.5; O2SAT 94–96
[2023-03-05 06:15] LABS: Anion Gap 13 (12-20); Blood Urea Nitrogen 4 mg/dL (9-16); Calcium 8.7 mg/dL (8.4-10.2); Carbon Dioxide 26 mmol/L (22-29); Chloride 92 mmol/L (96-108); Creatinine Clr Calc Pharmacy 111.5; Estimated Glomerular Filt Rate > 60; Glucose Random 88 mg/dL (60-115); Potassium 3.1 mmol/L (3.3-5.1); Sodium 128 mmol/L (135-145)
[2023-03-05] MEDS: Omeprazole 20 MG CAPSULE.DR PO (06:35)
[2023-03-05] MEDS: Acetaminophen 325 MG TABLET 650 MG PO (08:58)
[2023-03-05] MEDS: Folic Acid 1 MG TABLET PO (08:59)
[2023-03-05] MEDS: PHENobarbitaL 30 MG TABLET PO ×2 (08:59→20:17)
[2023-03-05] MEDS: 0.9 % Sodium Chloride Flush 3 ML SYRINGE IVFLUSH ×3 (08:59→23:43)
[2023-03-05] MEDS: Multivitamin TABLET 1 TAB PO (08:59)
[2023-03-05] MEDS: Fluconazole 100 MG TABLET 200 MG PO (08:59)
[2023-03-05] MEDS: Thiamine HCL 100 MG TABLET PO (08:59)
[2023-03-05] MEDS: Potassium Chloride Packet 20 MEQ PACKET 40 MEQ PO (09:08)
--- NOTE | 2023-03-05 11:54 | MHC.CM.PN ---
CM met with Patient and his at bedside to discuss PT's recommendation for STR. CM informed Patient of a number of SNFs that may be available to him, pending bed availability. Patient and his will consider facilities/choices and CM will follow.
--- NOTE | 2023-03-05 12:48 | P.PNIM_ITS ---
Subjective Subjective Date of Service: 03/05/23 Interval History: follow up Fall, weakness more awake today no pain Review of Systems Dysphagia/odynophagia Denies abdominal pain No chest pain/pressure, palpitations Physical Exam Vital Signs: Vital Signs: Last Vital Signs Temp 99.4 F 03/05/23 11:05 Pulse 92 03/05/23 11:05 Resp 20 03/05/23 11:05 BP 115/80 03/05/23 11:05 Pulse Ox 94 03/05/23 11:05 O2 Del Method Room Air 03/05/23 11:05 BMI result Body Mass Index 23.2 Appearing in no acute distress lung sounds are clear to auscultation heart regular rate rhythm, clear S1, S2 positive bowel sounds, abdomen is soft, nontender neuro patient is alert x3, no focal deficits Objective Data Active Medications Acetaminophen (Acetaminophen 325 Mg Tablet) 650 mg PO Q6H PRN PRN Reason: Pain, Mild (Pain Scale 1-3) Last Admin: 03/05/23 08:58 Dose: 650 mg Documented By: JAMES Albuterol/Ipratropium (Albuterol/Iprat 2.5/0.5mg 3 Ml Ampul.Neb) 3 ml INHALE RQ4H WHILE AWAKE PRN PRN Reason: Shortness of Breath/Wheezing Docusate Sodium (Docusate Sodium 100 Mg Capsule) 100 mg PO DAILY PRN PRN Reason: Constipation Last Admin: 03/04/23 08:19 Dose: 100 mg Documented By: PJ Enoxaparin Sodium (Enoxaparin Sodium 40 Mg/0.4 Ml Syringe) 40 mg SUBCUT Q24H [facility] Last Admin: 03/04/23 16:56 Dose: 40 mg Documented By: PJ Fluconazole (Fluconazole 100 Mg Tablet) 200 mg PO DAILY [facility] Last Admin: 03/05/23 08:59 Dose: 200 mg Documented By: JAMES Folic Acid (Folic Acid 1 Mg Tablet) 1 mg PO DAILY [facility] Last Admin: 03/05/23 08:59 Dose: 1 mg Documented By: JAMES Ceftriaxone Sodium 1 gm/ (Sodium Chloride) 50 mls @ 100 mls/hr IV Q24H [facility] Last Infusion: 03/04/23 15:45 Dose: 0 mls/hr Documented By: PJ Azithromycin 500 mg/ Sodium (Chloride) 250 mls @ 125 mls/hr IV Q24H [facility] Last Infusion: 03/04/23 17:45 Dose: 0 mls/hr Documented By: PJ Multivitamins/Vitamin C (Multivitamin Tablet) 1 tab PO DAILY [facility] Last Admin: 03/05/23 08:59 Dose: 1 tab Documented By: JAMES Omeprazole (Omeprazole 20 Mg Capsule.) 20 mg PO DAILY@0630 [facility] Last Admin: 03/05/23 06:35 Dose: 20 mg Documented By: PHAN Pharmacy Consult (Consult Rx Etoh Phenob Im/Po) 1 each MISCELLANE ONCE PRN; Protocol PRN Reason: Consult order Phenobarbital (Phenobarbital 30 Mg Tablet) 30 mg PO BID [facility]; Protocol Stop: 03/06/23 21:01 Last Admin: 03/05/23 08:59 Dose: 30 mg Documented By: JAMES Phenobarbital (Phenobarbital 30 Mg Tablet) 30 mg PO DAILY [facility]; Protocol Stop: 03/08/23 09:01 Sodium Chloride (0.9 % Sodium Chloride Flush 3 Ml Syringe) 3 ml IVFLUSH QSHIFT [facility] Last Admin: 03/05/23 08:59 Dose: 3 ml Documented By: JAMES Thiamine HCl (Thiamine Hcl 100 Mg Tablet) 100 mg PO DAILY [facility] Last Admin: 03/05/23 08:59 Dose: 100 mg Documented By: JAMES Labs 03/03/23 06:24 03/05/23 05:28 Labs: Laboratory Results - last 24 hr 03/05/23 03/05/23 05:28 05:28 Anion Gap 13 Estim Creat Clear Calc 111.5 Estimated GFR > 60 Random Glucose 88 Calcium 8.7 Total Creatine Kinase 447 H Microbiology Microbiology Results: Microbiology 03/02/23 16:21 Blood Culture - Preliminary Blood - Venous No growth after 48 hours. 03/02/23 16:21 Blood Culture - Preliminary Blood - Venous No growth after 48 hours. 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 Pt was admitted to the hospital under observation on telemetry for generalized weakness in the setting of community- acquired pneumonia and alcohol withdrawal. CAP right lower lobe pneumonia Continue Ceftriaxone, azithromycin, started 03/02/2023, 7 days no oxygen required Acute alcohol withdrawal Pt with 30+ year hx of drinking 20+ beers daily, now down to 10 beers daily d/t dysphagia secondary to tonsillar cancer currently on radiation 5 days a week Continue phenobarb protocol Daily multivitamin, folic acid, thiamine, Famotidine 20 mg p.o. b.i.d. Addiction Medicine Monitor on telemetry Urinary retention urinating on his own bladder scan Q shift and straight cath as necessary Hyponatremia Sodium 128 today secondary to IV fluids which have been stopped Follow BMP Hypokalemia repleted Generalized weakness/deconditioning likely secondary to radiation for tonsillar cancer 5 days a week, heavy alcohol use daily, reduced p.o. intake of solids and any other fluids, little ambulation/exercise, pneumonia PT consult rec> STR Nutrition consult> increase protein and add ensure OOB to chair and ambulating in hallway Elevated CPK Likely secondary to fall trending down Acute on chronic back pain Analgesics for pain management Full Code Attending:?Dr. Stoddard DVT Prophylaxis: Lovenox Pt require continued hospitalization d/t need for IV abx for pneumonia and PT evaluation for generalized weakness and deconditioning. Time Spent With Patient Time: Total time managing care of this patient today ____ minutes. Quality Stroke Does the patient have a stroke diagnosis?: No VTE Prior VTE?: No VTE Risk Level:: Medical - moderate - high VTE Device Contraindication: Treatment Not Indicated VTE Drug Contraindication: N/A - Med Ordered
--- NOTE | 2023-03-05 13:04 | MHC.RECOVRN ---
Em manager utilization and t/w in to speak with pt regarding his ETOH use and assess if pt is interested in abstaining, or cutting down use. Pt appeared in no acute distress, laying in his stretcher watching tv. Pt reports he does not feel there is a need to cut down on ETOH use, pt reports he has been drinking his whole adult life. Pt denies and goals r/t ETOH use, denies ever using [facility], or seeking any treatment. Resources left with pt.
[2023-03-05] MEDS: cefTRIAXone sodium 1 GM in 0.9 % Sodium Chloride 50 ML IV (15:57)
[2023-03-05] MEDS: Azithromycin 500 MG in 0.9 % Sodium Chloride 250 ML 125 MG IV (16:01)
[2023-03-05] MEDS: Enoxaparin Sodium 40 MG/0.4 ML SYRINGE SUBCUT (18:09)
[2023-03-06 03:37] VITALS: BP 137/65; PULSE 87; RESP 18; TEMP 36.8; O2SAT 96
[2023-03-06 06:14] LABS: Anion Gap 11 (12-20); Blood Urea Nitrogen 4 mg/dL (9-16); Calcium 8.9 mg/dL (8.4-10.2); Carbon Dioxide 28 mmol/L (22-29); Chloride 93 mmol/L (96-108); Creatinine Clr Calc Pharmacy 113.6; Estimated Glomerular Filt Rate > 60; Glucose Random 104 mg/dL (60-115); Magnesium 1.7 mg/dL (1.6-2.6); Potassium 3.4 mmol/L (3.3-5.1); Sodium 129 mmol/L (135-145)
[2023-03-06 07:07] VITALS: BP 136/70; PULSE 90; RESP 20; TEMP 37.1; O2SAT 93
[2023-03-06] MEDS: Fluconazole 100 MG TABLET 200 MG PO (08:54)
[2023-03-06] MEDS: Multivitamin TABLET 1 TAB PO (08:55)
[2023-03-06] MEDS: PHENobarbitaL 30 MG TABLET PO (08:55)
[2023-03-06] MEDS: Folic Acid 1 MG TABLET PO (08:55)
[2023-03-06] MEDS: Thiamine HCL 100 MG TABLET PO (08:56)
[2023-03-06] MEDS: 0.9 % Sodium Chloride Flush 3 ML SYRINGE IVFLUSH (09:04)
--- NOTE | 2023-03-06 10:05 | MHC.CLN ---
F/U PO INTAKE VARIABLE RANGING FROM 0-75% DIET RX: REGULAR-APPROPRIATE MD STARTED ENSURE TID TO INCREASE KCALS SUPP TO PROVIDE 1050KCALS, 60G PROTEIN WITH 100% ACCEPTANCE MONITOR PO INTAKE CLOSELY
--- NOTE | 2023-03-06 10:33 | P.CONNP_ITS ---
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 Pt was admitted to the hospital for generalized weakness in the setting of community-acquired pneumonia and alcohol withdrawal.He has been hyponatremic. Nephrology has been consulted to assist in his clinical care during his current hospital stay. 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 Father No problems noted. Surgical History Surgical History History of cataract surgery History of right inguinal hernia repair Hx of appendectomy Hx of colonoscopy Status post neck dissection Social History Social History Housing: House Are you a primary laboratory animal care veterinarian to a significant other at home: No Do you presently have visiting nurse or other home services: No Alcohol intake: never Patient Tobacco Use Status: Former Tobacco user Tobacco use type: Cigarette Years Smoked: stopped 2012 Smoked in Last 30 Days: No e-Cigarette/Vaping Use: Never Used Patient Interested in Nicotine Replacement: No Patient Given Instructions on How to Stop Smoking: No Second Hand Smoke Exposure: No Use of substances other than those prescribed or required for medical reasons: No Advance Directives: No service: No Current occupational status: retired Meds Allergies Allergy/AdvReac Type Severity Reaction Status Date / Time walnut Allergy Severe THROAT Verified 03/02/23 09:37 CLOSES Active Medications: Current Medications Acetaminophen (Acetaminophen 325 Mg Tablet) 650 mg PO Q6H PRN PRN Reason: Pain, Mild (Pain Scale 1-3) Last Admin: 03/05/23 08:58 Dose: 650 mg Albuterol/Ipratropium (Albuterol/Iprat 2.5/0.5mg 3 Ml Ampul.Neb) 3 ml INHALE RQ4H WHILE AWAKE PRN PRN Reason: Shortness of Breath/Wheezing Docusate Sodium (Docusate Sodium 100 Mg Capsule) 100 mg PO DAILY PRN PRN Reason: Constipation Last Admin: 03/04/23 08:19 Dose: 100 mg Enoxaparin Sodium (Enoxaparin Sodium 40 Mg/0.4 Ml Syringe) 40 mg SUBCUT Q24H [facility] Last Admin: 03/05/23 18:09 Dose: 40 mg Fluconazole (Fluconazole 100 Mg Tablet) 200 mg PO DAILY [facility] Last Admin: 03/06/23 08:54 Dose: 200 mg Folic Acid (Folic Acid 1 Mg Tablet) 1 mg PO DAILY [facility] Last Admin: 03/06/23 08:55 Dose: 1 mg Ceftriaxone Sodium 1 gm/ (Sodium Chloride) 50 mls @ 100 mls/hr IV Q24H [facility] Last Infusion: 03/05/23 18:11 Dose: Infused Azithromycin 500 mg/ Sodium (Chloride) 250 mls @ 125 mls/hr IV Q24H [facility] Last Infusion: 03/05/23 18:12 Dose: Infused Multivitamins/Vitamin C (Multivitamin Tablet) 1 tab PO DAILY [facility] Last Admin: 03/06/23 08:55 Dose: 1 tab Omeprazole (Omeprazole 20 Mg Capsule.Dr) 20 mg PO DAILY@0630 [facility] Last Admin: 03/06/23 06:20 Dose: Not Given Pharmacy Consult (Consult Rx Etoh Phenob Im/Po) 1 each MISCELLANE ONCE PRN; Protocol PRN Reason: Consult order Phenobarbital (Phenobarbital 30 Mg Tablet) 30 mg PO BID [facility]; Protocol Stop: 03/06/23 21:01 Last Admin: 03/06/23 08:55 Dose: 30 mg Phenobarbital (Phenobarbital 30 Mg Tablet) 30 mg PO DAILY [facility]; Protocol Stop: 03/08/23 09:01 Sodium Chloride (0.9 % Sodium Chloride Flush 3 Ml Syringe) 3 ml IVFLUSH QSHIFT [facility] Last Admin: 03/06/23 09:04 Dose: 3 ml Thiamine HCl (Thiamine Hcl 100 Mg Tablet) 100 mg PO DAILY [facility] Last Admin: 03/06/23 08:56 Dose: 100 mg Home Medications Medication Instructions Recorded Confirmed Last Taken Type vxnbtxodzlfa-yngzshfb-fqqtar 1 tab PO DAILY 05/26/20 03/02/23 03/01/23 History tablet (Multivitamin 50 Plus tablet) Magic Mouthwash W/ Nystatin 10 ml PO Q4H PRN throat discomfort 03/02/23 03/01/23 History fluconazole 200 mg tablet 200 mg PO DAILY 03/02/23 03/02/23 03/01/23 History folic acid 1 mg tablet 1 mg PO DAILY 03/02/23 03/02/23 03/01/23 History thiamine HCl (vitamin B1) 100 mg 100 mg PO DAILY 03/02/23 03/02/23 03/01/23 History tablet (Vitamin B-1) Physical Exam Vital Signs: Last Vital Signs Temp 98.8 F 03/06/23 07:07 Pulse 90 03/06/23 07:07 Resp 20 03/06/23 07:07 BP 136/70 03/06/23 07:07 Pulse Ox 93 03/06/23 07:07 O2 Del Method Room Air 03/06/23 07:07 BMI result Body Mass Index 23.2 Const General: no acute distress Eyes EOM: EOMs intact bilaterally Resp Auscultation: diminished lung sounds Cardio Rate: regular rate GI Palpation (GI): Soft to palpation Neuro General: moves all extremities Results Lab Results 03/03/23 06:24 03/06/23 05:33 Lab results: Chemistry 03/04/23 03/05/23 03/06/23 08:33 05:28 05:33 Sodium 126 L 128 L 129 L Potassium 3.3 3.1 L 3.4 Carbon Dioxide 23 26 28 BUN 3 L 4 L 4 L Creatinine 0.57 0.54 0.53 Calcium 8.5 8.7 8.9 Assessment and Plan (1) Hyponatremia: Status: Acute Time Spent With Patient Time: Has predilection for excess ADH Admitted with PNA; Also received IVF Has H/O excess beer drinking Serum sodium stable Needs fluid restriction 48 oz/24 hours Renal function normal; K OK Could check cortsiol and TSH Shall arrange office F/U when D/Osbaldo Procedures Date of Service Date of Service: 03/06/23
[2023-03-06 11:06] VITALS: BP 124/69; PULSE 92; RESP 20; TEMP 36.9; O2SAT 97
--- NOTE | 2023-03-06 12:03 | MHC.CM.PN ---
Patient has been medically cleared for dc to SNF/STR today. Patient and his have chosen [facility] and Patient will dc there today at 2PM, via [facility]. IMM addressed.
--- NOTE | 2023-03-06 12:30 | PM.DS ---
DS: Providers Provider Date of Service: 03/06/23 Date of admission: 03/02/23 16:11 Primary care physician: Sydnee Parmar MD Consults: 03/02/23 16:16 Addiction Medicine Routine Consulting Provider: Addiction Covering Reason for consultation: Alcohol use disorder, 20+ beer daily 03/06/23 07:27 Consult to Nephrology Routine Consulting Provider: Gabe Ware Reason for consultation: hyponatremia DS: Diagnosis Discharge Diagnosis (1) Hyponatremia: Status: Acute DS: Summary Hospital Course Hospital Course: History and physical as per admitting provider. Pt is a 72-year-old male with a PMH significant for?tonsillar cancer started on chemotherapy 2 1/2 weeks ago, fatty liver, chronic back and hip pain, and alcohol use disorder who presents to the ED with?generalized weakness and evaluation for recent fall out of bed this morning.? Patient states that yesterday during the day he had chills, subjective fever, and diaphoresis, which seemingly resolved by the end of the night.? Sometime during the middle of the night patient said that ?something happened? where he was ?blown off the bed? and then stuck under furniture for a couple of hours.? Patient was unable to elaborate on events.? Cold patient's who further clarified, stating that approximately 130 in the morning patient started yelling for his who came into his room and saw him half sitting up in half lying on the floor.? At that time he stated that a ?shock? went up and down his back which jolted him out of bed.? was able to lay the patient down on the floor, but took until 06:00 to convince him to come to the hospital.? reports that for the past 3-4 days patient has had difficulty walking and eating and drinking very little except for alcohol d/t feeling like his tongue is on fire.? Patient has a long history of heavy alcohol use, apparently drinking 20+ beers daily for the past 30+ years.? However patient has recently started radiation for tonsillar cancer and now consumes around 10 beers a day.? states patient is mostly inactive during the day just sitting in his kitchen chair watching TV and drinking beer.? Both patient and deny any history of alcohol withdrawal or history of withdrawal seizures.? Patient reports feeling fatigued ever since starting radiation therapy.? Apparently had an injury to his back many years ago and has experienced chronic lower back and hip pain since then, but moderately well controlled until this past week.? Denies chest pain/pressure, palpitations.? Chronic nonproductive cough.? Denies hallucinations.? No abdominal pain. In the ED patient was afebrile but tachycardic up to 106 and hypertensive at 140/81, satting at 99% on RA. Labs were significant for H&H 12.8/38.0, sodium of 131, CPK 454. Tox screen negative for ethyl alcohol.? UA negative for UTI.? CXR showed suspicion for right lower lobe pneumonia and linear opacity seen in the right middle lobe and left mid and lower lung, likely atelectasis but cannot exclude evolving infiltrates.? X-ray of lumbar spine unremarkable with mild L1 compression fracture and deep degenerative changes.? CT?of head showed no acute bleeds, territorial infarcts, or masses.? Also showed diffuse intracranial volume loss and chronic microvascular ischemic changes and lacunar infarcts.? CT of cervical spine found no acute fracture or subluxation, but did show multilevel spondylitic and facet arthropathic changes. EKG demonstrated sinus tachycardia of 104 with no evidence of ST or depressions. Pt was treated with DuoNeb, IVF, lorazepam, ceftriaxone, azithromycin, omeprazole, and start on phenobarb protocol. Pt will be admitted to the hospital under observation on telemetry for generalized weakness in the setting of community-acquired pneumonia and alcohol withdrawal. Treated for community-acquired pneumonia with right lower lobe pneumonia noted on imaging. He was treated with IV Rocephin and azithromycin, no oxygen required, no episodes of hypoxia. He will continue his with mycin and doxycycline for 3 more days for total of 7 day treatment. Acute alcohol withdrawal. Pt with 30+ year hx of drinking 20+ beers daily, now down to 10 beers daily d/t dysphagia secondary to tonsillar cancer currently on radiation 5 days a week. Treated with phenobarbital protocol, multivitamin, folic acid and thiamine as well as PPI. He was seen evaluated by addiction medicine and provided with outpatient referrals. Read to continue on his road to recovery. Urinary retention. Initially had some issues but subsequently resolved without mention Hyponatremia. Sodium initially 131, given a few L of need normal saline and this likely contributed to the decrease of sodium that went down as low as 126. IV fluids were stopped and sodium went up to 129. If he continues to have low sodium, may consider a cortisol test in the future. Would recommend 48 oz fluid restriction a day as per Nephrology. Hypokalemia. repleted Generalized weakness/deconditioning. likely secondary to radiation for tonsillar cancer 5 days a week, heavy alcohol use daily, reduced p.o. intake of solids and any other fluids, little ambulation/exercise, pneumonia. Has resolved for the most part and patient has been ambulating in out of bed to the chair. He needs to increase protein in his diet and Ensure would be good for that. Cessation of alcohol will be important Elevated CPK Likely secondary to fall. Resolved. Acute on chronic back pain. Continue home management. Less than 30 day stay Time Spent with Patient Time attestation: Total time managing care of this patient today ____ minutes. Discharge coordination time: Greater than 30 minutes Quality: Safe Use of Opioids Does Pt have an Active Cancer Diagnosis on the Problem List?: No Quality: Stroke Does the patient have a stroke diagnosis?: No Physical Exam Vital Signs: Vital Signs: Last Vital Signs Temp 98.5 F 03/06/23 11:06 Pulse 92 03/06/23 11:06 Resp 20 03/06/23 11:06 BP 124/69 03/06/23 11:06 Pulse Ox 97 03/06/23 11:06 O2 Del Method Room Air 03/06/23 11:06 BMI result Body Mass Index 23.2 Appearing in no acute distress head is normocephalic atraumatic eyes pupils are PERRLA sclera is anicteric mouth throat mucous membranes are intact and moist neck is supple no lymphadenopathy, no JVD noted lung sounds are clear to auscultation heart regular rate rhythm, clear S1, S2 positive bowel sounds, abdomen is soft, nontender neuro patient is alert x3, no focal deficits DS: Data Data Completed and Pending Labs on day of discharge: Laboratory Results - last 24 hr 03/06/23 03/06/23 05:33 05:33 Sodium 129 L Potassium 3.4 Chloride 93 L Carbon Dioxide 28 Anion Gap 11 L BUN 4 L Creatinine 0.53 Estim Creat Clear Calc 113.6 Estimated GFR > 60 Random Glucose 104 Calcium 8.9 Magnesium 1.7 Cancelled Preliminary micro results at discharge 03/02/23 16:21 Blood Culture - Preliminary Blood - Venous No growth after 48 hours. 03/02/23 16:21 Blood Culture - Preliminary Blood - Venous No growth after 48 hours. Discharge Plan Discharge Anticipated Discharge Date/Time: 03/06/23 12:13 Patient Disposition: [facility] Discharge Diagnosis: Hyponatremia Hypokalemia Alcohol intoxication and withdrawal Urinary retention Community-acquired pneumonia Referrals: [facility] [Outside] - 1 Week Po,Sydnee Rodas MD [Primary Care Provider] - 1 Week Discharge Medications: New omeprazole 20 mg Capsule,Delayed Release(Dr/Ec) 20 mg PO DAILY@0630 Qty: 30 0RF azithromycin 500 mg tablet 500 mg PO DAILY 3 Days Qty: 3 0RF doxycycline hyclate 100 mg tablet 100 mg PO BID Qty: 6 0RF Continued Multivitamin 50 Plus Tablet 1 tab PO DAILY fluconazole 200 mg tablet 200 mg PO DAILY Rx Instructions: END DATE: 03/04/23 thiamine HCl (vitamin B1) [Vitamin B-1] 100 mg tablet 100 mg PO DAILY folic acid 1 mg tablet 1 mg PO DAILY Magic Mouthwash W/ Nystatin 10 ml PO Q4H PRN (Reason: throat discomfort) Rx Instructions: SHAKE WELL BEFORE USE Discharge Orders: Discharge Order (Routine); Ordered 03/06/23 Ordered By: Brit Ma Diet: Advance to usual diet Activity on Discharge: As tolerated Stand Alone Forms: Patient Portal Discharge page Care Plan Goals: Stop drinking alcohol Health Concerns: Hyponatremia Hypokalemia Alcohol intoxication and withdrawal Urinary retention Community-acquired pneumonia Plan of Treatment: Follow-up with primary care provider as needed Take all medications as prescribed Assessment: See discharge summary
--- NOTE | 2023-03-06 14:03 | PC.NURSE ---
RN to RN report given to [facility] at 1400
== END 2023-03-06 15:43 | disposition skilled nursing facility (03) | DRG 194 ==
LOC: HO.ED 14:44 → HO.EDOVER 16:43 → HO.IMC 17:02
PROVIDERS: Physician Assistant; Admitting Provider Student in an Organized Health Care Education/Training Program; Emergency Provider Emergency Medicine Emergency Medical Services; PCP Internal Medicine; Visit Provider Nurse Practitioner Acute Care
DX: J18.9 Pneumonia, unspecified organism (principal); E87.1 Hypo-osmolality and hyponatremia; J98.11 Atelectasis; F10.139 Alcohol abuse with withdrawal, unspecified; C09.9 Malignant neoplasm of tonsil, unspecified; E87.6 Hypokalemia; R33.9 Retention of urine, unspecified; K76.0 Fatty (change of) liver, not elsewhere classified; Z87.891 Personal history of nicotine dependence; Z79.899 Other long term (current) drug therapy
CPT/HCPCS: 36415; 70450; 71046; 72100; 72125; 80048; 80076; 80307; 81003; 82550; 83605; 83735; 83880; 84484; 85025; 85027; 85610; 87040; 93005; 94640; 97116; 97162; 99285; J0456; J0696; J1650; J2060; J2270; J2560; J3475

== ENCOUNTER → 2023-03-02 11:28 | Outpatient (BNV) | payer MEDICARE, SELFPAY | PROVIDERS: Admitting Provider Student in an Organized Health Care Education/Training Program; Emergency Provider Emergency Medicine Emergency Medical Services; PCP Internal Medicine; Visit Provider Internal Medicine Cardiovascular Disease | DX: I49.1 Atrial premature depolarization (principal) | CPT/HCPCS: 93010 ==

== ENCOUNTER → 2023-03-02 16:11 | Outpatient (BNV) | payer MEDICARE, SELFPAY | PROVIDERS: Admitting Provider Student in an Organized Health Care Education/Training Program; Emergency Provider Emergency Medicine Emergency Medical Services; PCP Internal Medicine; Visit Provider Student in an Organized Health Care Education/Training Program | DX: J18.9 Pneumonia, unspecified organism (principal); R53.1 Weakness; R33.9 Retention of urine, unspecified | CPT/HCPCS: 99222; 99232; 99239 ==

== ENCOUNTER 2023-06-06 10:17 | Outpatient (REF) | payer MEDICARE, SELFPAY ==
[2023-06-06 13:44] LABS: Anion Gap 13 (12-20); Blood Urea Nitrogen 6 mg/dL (9-16); Calcium 9.2 mg/dL (8.4-10.2); Carbon Dioxide 28 mmol/L (22-29); Chloride 95 mmol/L (96-108); Estimated Glomerular Filt Rate > 60; Glucose Fasting 82 mg/dL (60-99); Potassium 4.5 mmol/L (3.3-5.1); Sodium 131 mmol/L (135-145)
[2023-06-06 14:03] LABS: Prostate Specific Antigen 0.36 ng/mL (<0.05-4.0)
== END 2023-06-06 10:18 | disposition home or self-care (01) ==
LOC: HO.10HDL 10:17
PROVIDERS: Visit Provider Nurse Practitioner Family
DX: Z12.5 Encounter for screening for malignant neoplasm of prostate (principal); Z13.1 Encounter for screening for diabetes mellitus
CPT/HCPCS: 36415; 80048; 84153

== ENCOUNTER 2023-06-17 08:51 | Outpatient (AMB) | payer MEDICARE, SELFPAY ==
[2023-06-17 08:55] VITALS: BP 140/88; PULSE 90; O2SAT 95; BMI 20.9
--- NOTE | 2023-06-17 08:55 | MHC.PC.OV ---
Vital Signs 06/17/23 08:55 06/17/23 09:35 Height 5 ft 6 in Weight 129 lb 4 oz BMI 20.9 BP 140/88 H 120/80 Blood Pressure Location Lt brachial Lt brachial Position Sitting Sitting Pulse 90 Pulse Source Pulse Oximeter Pulse Oximetry (%) 95 Oxygen Delivery Method Room Air Intake Visit Reasons: fatty liver [facility] Cl[facility] Required: No Accompanied by: Self / Same As Patient Allergies walnut Allergy (Severe, Verified 06/17/23 09:05) THROAT CLOSES Medication List - Last Reconciled 06/17/23 by Sydnee Parmar MD folic acid 1 mg PO DAILY gabapentin 100 mg PO BEDTIME [Magic Mouthwash W/ Nystatin 10 mL PO Q4H PRN] Tobacco use date assessed: 06/17/23 Fall risk assessment: No Falls in past year Last assessed Fall Risk: 06/17/23 Dental Screening Dental Screen Date: 06/17/23 Did you have a dental visit in the last 12 months?: Yes Did you have a dental problem in the last 6 months where you did not have access to dental care?: No Was dental information given to patient?: Patient has dentist HPI fatty liver HPI Details 73-year-old male with a history of alcohol abuse recurrent depression impaired glucose tolerance and fatty liver last seen in February 2022. Patient is here for follow-up. 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 Patient was in the hospital February 2023 for hyponatremia started on chemotherapy 2 and half weeks ago x-ray of the spine did show mild L1 compression fracture treated for right lower lobe pneumonia patient was advised to have fluid restriction. still drinking 1/2 beer a day. 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 Father No problems noted. Housing: House Are you a primary family day care provider to a significant other at home: No Do you presently have visiting nurse or other home services: No Alcohol intake: never Patient Tobacco Use Status: Former Tobacco user Tobacco use type: Cigarette Years Smoked: stopped 2011 e-Cigarette/Vaping Use: Never Used Second Hand Smoke Exposure: No service: No Current occupational status: retired Cognitive needs: No Hearing needs: No Vision needs: No Questionnaire Thrive Questionnaire Date Thrive assessed: 03/03/23 AUDIT C Alcohol Use Questionnaire (AUDIT-C) 1. How often do you have a drink containing alcohol?: 4 or more times a week 2. How many drinks containing alcohol do you have on a typical day when you are drinking?: 5 or 6 3. How often do you have six or more drinks on one occasion?: Never Total Score: 6 Score Reviewed/Action Taken: Yes SIERRA-7 AMB Questionnaire SIERRA-7 Date SIERRA - 7 assessed: 12/11/21 Source: Developed by Drs. Ceasar Pearson, Pinky Tamayo, Zev Gracia and colleagues, with an educational nury from [employer]. Physical exam (Primary Care) Vital Signs: Last Vital Signs Pulse 90 06/17/23 08:55 BP 140/88 H 06/17/23 08:55 Pulse Ox 95 06/17/23 08:55 Oxygen Delivery Method Room Air 06/17/23 08:55 BMI result Body Mass Index 20.9 Tobacco/Smoking Status: Tobacco use Status Tobacco use date assessed 06/17/23 06/17/23 08:56 Patient Tobacco Use Status Former Tobacco user 06/17/23 08:56 Tobacco use type Cigarette 06/17/23 08:56 e-Cigarette/Vaping Use Never Used 06/17/23 08:56 Thrive Assessment: Date of Thrive Assessment Date Thrive assessed 03/03/23 06/17/23 08:56 Const General: alert; No acute distress Eyes Conjunctivae: conjunctivae normal Resp Auscultation: clear to auscultation bilaterally Cardio Rate: regular rate Rhythm: regular rhythm GI Inspection: Yes normal to inspection Extrem General: Yes normal to inspection and No edema Assessment and Plan Assessment & Plan (1) Hx of tongue cancer: Comment: s/p dissection, June 2016 moderately differentiated squamous cell cancer Code(s): Z85.810 - Personal history of malignant neoplasm of tongue Plan: Patient continues to follow-up with ENT (2) Hyponatremia: Code(s): E87.1 - Hypo-osmolality and hyponatremia Plan: Will continue to follow-up on this (3) Impaired glucose tolerance: Code(s): R73.02 - Impaired glucose tolerance (oral) Plan: Decrease the amount of carbohydrate intake, pasta, bread, rice and potatoes are all sugar and that is aside from all the sweet stuff, remember that fruits are good but they are Sweet also. (4) Alcohol abuse: Code(s): F10.10 - Alcohol abuse, uncomplicated Plan: Patient is strongly advised to abstain from alcohol (5) Tubular adenoma of colon: Comment: 05/2020 Dr. Canela 5years Code(s): D12.6 - Benign neoplasm of colon, unspecified Plan: Up-to-date with colonoscopy (6) Compression fracture of L1 vertebra: Code(s): S32.010A - Wedge compression fracture of first lumbar vertebra, initial encounter for closed fracture Plan: Keep active (7) Recurrent depression: Comment: decline counselling Code(s): F33.9 - Major depressive disorder, recurrent, unspecified Orders: Orders Free T4 (Free Thyroxine) 6 Months R73.02 - Impaired glucose tolerance (oral) Complete Blood Count Auto Diff 6 Months R73.02 - Impaired glucose tolerance (oral) Thyroid Stimulating Hormone 6 Months R73.02 - Impaired glucose tolerance (oral) Lipid Panel 6 Months E78.00 - Pure hypercholesterolemia, unspecified, R73.02 - Impaired glucose tolerance (oral) Vitamin B12 and Folate 6 Months R73.02 - Impaired glucose tolerance (oral) Comprehensive Met. Panel 6 Months R73.02 - Impaired glucose tolerance (oral) Hemoglobin A1c 6 Months R73.02 - Impaired glucose tolerance (oral) Medications: New gabapentin 100 mg PO BEDTIME 30 caps 3RF Z85.810 - Personal history of malignant neoplasm of tongue gabapentin 100 mg PO BEDTIME 30 caps 3RF Z85.810 - Personal history of malignant neoplasm of tongue Coding Level of Care Code Est Pt Level 4 (01910) Diagnoses Hx of tongue cancer Z85.810 Hyponatremia E87.1 Impaired glucose tolerance R73.02 Alcohol abuse F10.10 Tubular adenoma of colon D12.6 Compression fracture of L1 vertebra S32.010A Recurrent depression F33.9
[2023-06-17 09:35] VITALS: BP 120/80
== END 2023-06-17 09:46 | disposition home or self-care (01) ==
PROVIDERS: Visit Provider Internal Medicine
DX: S32.010A Wedge compression fracture of first lumbar vertebra, initial encounter for closed fracture (principal); F33.9 Major depressive disorder, recurrent, unspecified; Z85.810 Personal history of malignant neoplasm of tongue; E87.1 Hypo-osmolality and hyponatremia; R73.02 Impaired glucose tolerance (oral); F10.10 Alcohol abuse, uncomplicated; Z86.010 Personal history of colon polyps
CPT/HCPCS: 99214

== ENCOUNTER 2023-12-17 08:52 | Outpatient (AMB) | payer MEDICARE, MEDICAID, SELFPAY ==
--- NOTE | 2023-12-17 09:11 | AM.OFFVISMDC ---
Intake Vital Signs 12/17/23 09:16 Height 5 ft 6 in Weight 121 lb 8 oz BMI 19.6 BP 130/72 Blood Pressure Location Lt brachial Position Sitting Pulse 70 Pulse Source Pulse Oximeter Pulse Oximetry (%) 97 Oxygen Delivery Method Room Air Intake Visit Reasons: SHAWANDAV [id number] Intake Note: Patient is here for an Annual Wellness Visit. Saw Superintendent Required: No Supervisor Blasting: Supervisor Blasting offered & declined Accompanied by: Self / Same As Patient Allergies walnut Allergy (Severe, Verified 12/17/23 09:16) THROAT CLOSES Medication List - Last Reconciled 12/17/23 by Sydnee Parmar MD food supplemt, lactose-reduced (Ensure oral liquid) ea PO BID HPI SWV G0439 HPI Details 73-year-old male with a history of alcohol abuse, with history of tongue cancer impaired glucose tolerance L1 vertebral compression fracture coming in for follow-up. Patient has a history of tubular adenoma done colonoscopy in 2024 years. Patient is here for annual well visit. 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 Father No problems noted. Social History (Updated 12/17/23 @ 09:51 by Sydnee Parmar MD) Housing: House Are you a primary animal care giver to a significant other at home: No Do you presently have visiting nurse or other home services: No Alcohol intake: current Alcohol intake frequency: 0-2 drinks per day Alcohol type: beer Comment: drinks 6 beers a day Patient Tobacco Use Status: Former Tobacco user Tobacco use type: Cigarette Years Smoked: stopped 2011 e-Cigarette/Vaping Use: Never Used Second Hand Smoke Exposure: No service: No Current occupational status: retired Cognitive needs: No Hearing needs: No Vision needs: No Questionnaire Medicare Wellness Checkup [age] What gender do you identify with?: male During the past 4 weeks, how much have you been bothered by emotional problems such as feeling anxious, depressed, irritable, sad or downhearted, and blue?: not at all During the past 4 weeks, has your physical & emotional health limited your social activities with family, friends, neighbors, or groups?: not at all During the past 4 weeks, how much bodily pain have you generally had?: moderate pain During the past 4 weeks, was someone available to help you if you needed & wanted help?: yes, as much as I wanted During the past 4 weeks, what was the hardest physical activity you could do for at least 2 minutes?: moderate Can you get to places out of walking distance without help? (For eg., can you travel alone on buses, taxis or drive your car?): Yes Can you go shopping for groceries or clothes without someone's help?: Yes Can you prepare your own meals?: Yes Can you do your housework without help?: Yes Because of any health problems, do you need the help of another person with your personal care needs such as eating, bathing, dressing or getting around the house?: No Can you handle your own money without help?: Yes During the past 4 weeks, how would you rate your health in general?: good During the past 4 weeks how have things been going for you?: pretty well Are you having difficulties driving your car?: no Do you always fasten your seat belt when you are in a car?: no During past 4 weeks, have you been bothered by the following: never: Falling or dizzy when standing up, Sexual problems?, Trouble eating well?, Teeth or denture problems?, Problems using the telephone? and Tiredness or fatigue? Have you fallen 2 or more times in the past year?: Yes Are you afraid of falling?: No Are you a smoker?: no During the past 4 weeks, how many drinks of wine, beer, or other alcoholic beverages did you have?: 10 or more per week Do you exercise for about 20 minutes 3 or more times a week?: yes, all the time Have you been given information to help with the following?: no: Hazards in your house that might hurt you? How often do you have trouble taking medicines the way you have been told to take them?: I do not have to take medicine How confident are you that you can control & manage most of your health problems?: very confident What is your race?: White PHQ-9 Over the last 2 weeks, how often have you been bothered by any of the following problems? 1. Little interest or pleasure in doing things: several days 2. Feeling down, depressed, or hopeless: several days 3. Trouble falling or staying asleep, or sleeping too much: several days 4. Feeling tired or having little energy: several days 5. Poor appetite or overeating: several days 6. Feeling bad about yourself - or that you are a failure or have let yourself or your family down: several days 7. Trouble concentrating on things, such as reading the newspaper or watching television: several days 8. Moving or speaking so slowly that other people could have noticed. Or the opposite - being so fidgety or restless that you have been moving around a lot more than usual: several days 9. Thoughts that you would be better off or of hurting yourself in some way: not at all Total score: 8 Depression Screening Interpretation: Negative Depression Screening Done: Yes Source: Developed by Drs. Ceasar Pearson, Pinky Tamayo, Zev Gracia and colleagues, with an educational nury from [employer]. Thrive Questionnaire Date Thrive assessed: 12/17/23 I am a: Patient What is your living situation today?: I have a steady place to live Within the past 12 months, did the food you bought not last and you didn't have the money to get more?: Never true Within the past 12 months, did you worry whether your food would run out before you got money to buy more?: Never true Do you have trouble paying for medicines?: No Do you have trouble getting transportation to medical appointments?: No Do you have trouble paying your heating and electricity bill?: No Do you have trouble taking care of your child, family member or friend?: No Do you have trouble with day-to-day activities such as bathing, preparing meals, shopping, managing finances, etc.?: No Are you currently unemployed and looking for a job?: No Are you interested in more education?: No Currently or been in a relationship where the following occur: no concerns reported THRIVE Score: 0 SIERRA-7 AMB Questionnaire SIERRA-7 Date SIERRA - 7 assessed: 12/17/23 Feeling nervous, anxious, or on edge: 0 = Not at all Not being able to stop or control worryin = Not at all Worrying too much about different things: 0 = Not at all Trouble relaxin = Not at all Being so restless that it is hard to sit still: 0 = Not at all Becoming easily annoyed or irritable: 0 = Not at all Feeling afraid as if something awful might happen: 0 = Not at all Total SIERRA-7 score (0-4 normal; 5-9 mild; 10-14 moderate; 15-21 severe): 0 Source: Developed by Drs. Ceasar Pearson, Pinky Tamayo, Zev Gracia and colleagues, with an educational nury from [employer]. AUDIT C Alcohol Use Questionnaire (AUDIT-C) 1. How often do you have a drink containing alcohol?: 4 or more times a week 2. How many drinks containing alcohol do you have on a typical day when you are drinking?: 1 or 2 Total Score: 4 Review of Systems Const Denies poor appetite and Denies weakness Eyes Denies no additional complaints ENT Reports Normal hearing present, Denies dizziness, Denies nasal congestion, Denies tinnitus and Denies sore throat Card Denies chest pain, Denies syncope, Denies rapid heart rate and Denies dyspnea Resp Denies cough and Denies dyspnea GI Denies change in stool character, Reports constipation, Denies diarrhea, Denies nausea and Denies vomiting Denies dysuria and Denies urinary frequency Neuro Reports Normal hearing present, Denies confusion, Denies dizziness, Denies syncope and Denies weakness Psych Denies confusion Physical Exam Vital Signs: Last Vital Signs Pulse 70 12/17/23 09:16 BP 130/72 12/17/23 09:16 Pulse Ox 97 12/17/23 09:16 Oxygen Delivery Method Room Air 12/17/23 09:16 BMI result Body Mass Index 19.6 Const General: No confusion Orientation/consciousness: No confusion HEENT Head: Yes normocephalic Ears: external ears normal and TM's normal bilaterally Face and sinus: Yes normal facial exam Mouth: moist mucous membranes Throat: Yes tonsils normal Eyes Conjunctivae: conjunctivae normal Pupils: Equal, round and reactive pupils present and Pupil accommodation reflex normal Direct Ophthalmoscopy: normal light reflex Neck Neck: No lymphadenopathy Thyroid: Thyroid normal Chest Chest palpation & inspection: normal inspection of the chest Resp Effort & Inspection: normal respiratory effort and no audible wheezes Auscultation: clear to auscultation bilaterally, no crackles, no wheezes and lung sounds not diminished Cardio Rate: regular rate Rhythm: regular rhythm Peripheral pulses: radial pulses present and dorsalis pedis present GI Other: declined rectal Palpation (GI): no masses Auscultation: normal bowel sounds and normoactive bowel sounds Rectal Exam - Male: Yes deferred Other: decline exam Skin General skin exam: no rashes or lesions noted Rashes: no rashes Neuro General: No confusion Cranial nerves: Yes Equal, round and reactive pupils present and Yes Normal hearing present Cognition (Neuro): normal cognition Gait exam (Neuro): Normal gait present Motor exam (neuro): 5/5 motor strength present throughout Deep tendon reflexes (DTR's): Right brachioradialis reflex intensity grade: 2+, Left brachioradialis reflex intensity grade: 2+, Right patellar reflex intensity grade: 2+ and Left patellar reflex intensity grade: 2+ Extrem General: No edema Assessment & Plan Assessment & Plan (1) Encounter for subsequent annual wellness visit (AWV) in Medicare patient: Code(s): Z00.00 - Encounter for general adult medical examination without abnormal findings Plan: Patient is advised to eat healthy, keep well hydrated, keep active and have adequate sleep. 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 Escalante radiosurgery Code(s): Z85.810 - Personal history of malignant neoplasm of tongue Plan: Patient continue to follow-up with Dr. Escalante (4) Impaired glucose tolerance: Code(s): R73.02 - Impaired glucose tolerance (oral) Plan: Decrease the amount of carbohydrate intake, pasta, bread, rice and potatoes are all sugar and that is aside from all the sweet stuff, remember that fruits are good but they are Sweet also. (5) Alcohol abuse: Code(s): F10.10 - Alcohol abuse, uncomplicated Plan: Patient is advised strongly to abstain from alcohol. (6) Fatty liver: Code(s): K76.0 - Fatty (change of) liver, not elsewhere classified Plan: Low-fat diet and exercise (7) Recurrent depression: Comment: decline counselling Code(s): F33.9 - Major depressive disorder, recurrent, unspecified Plan: Continue with present medication Orders: Orders Ferritin Today F10.10 - Alcohol abuse, uncomplicated IRON PROFILE Today F10.10 - Alcohol abuse, uncomplicated Reticulocyte Count Today F10.10 - Alcohol abuse, uncomplicated Quality Reporting (2019) Depression/Bipolar (159/160/161/177) PHQ-9: Total score: 8 Coding Level of Care Code Medicare Subsequent (G0439) Diagnoses Encounter for subsequent annual wellness visit (AWV) in Medicare patient Z00.00 Hyponatremia E87.1 Hx of tongue cancer Z85.810 Impaired glucose tolerance R73.02 Alcohol abuse F10.10 Fatty liver K76.0 Recurrent depression F33.9
[2023-12-17 09:16] VITALS: BP 130/72; PULSE 70; O2SAT 97; BMI 19.6
== END 2023-12-17 10:07 | disposition home or self-care (01) ==
PROVIDERS: PCP Internal Medicine; Visit Provider Internal Medicine
DX: Z00.00 Encounter for general adult medical examination without abnormal findings (principal); F33.9 Major depressive disorder, recurrent, unspecified; R73.02 Impaired glucose tolerance (oral); E87.1 Hypo-osmolality and hyponatremia; Z85.810 Personal history of malignant neoplasm of tongue; F10.10 Alcohol abuse, uncomplicated; K76.0 Fatty (change of) liver, not elsewhere classified
CPT/HCPCS: G0439

== ENCOUNTER 2024-04-14 07:39 | Outpatient (REF) | payer MEDICARE, SELFPAY ==
[2024-04-14 07:51] LABS: MANUAL DIFF FLAG NO
[2024-04-14 08:27] LABS: Basophils Absolute Auto 0.1 X10*3/uL (0.0-0.2); Basophils Percent Auto 1.2 % (0-2); Eosinophils Absolute Auto 0.1 X10*3/uL (0.0-0.4); Eosinophils Percent Auto 1.1 % (0-4); Hematocrit 40.5 % (42.0-52.0); Hemoglobin 13.8 g/dl (14.0-18.0); Imm Gran Abs Auto 0.03 X10*3/uL (0.00-0.03); Imm Gran Pct Auto 0.5 % (0.0-0.4); Immature Retic Fraction 9.6 % (2.3-13.4); Lymphocytes Absolute Auto 0.8 X10*3/uL (1.2-4.9); Lymphocytes Percent Auto 11.8 % (20-40); Mean Corpuscular HGB Conc 34.1 g/dl (31.0-36.0); Mean Corpuscular Hemoglobin 34.9 pg (27.0-33.0); Mean Corpuscular Volume 102.5 fL (80.0-98.0); Mean Platelet Volume 8.1 fL (9.4-12.4); Monocytes Absolute Auto 1.1 X10*3/uL (0.1-1.2); Monocytes Percent Auto 16.3 % (2-11); Neutrophils Absolute Auto 4.6 x10*3/uL (2.0-8.3); Neutrophils Percent Auto 69.1 % (45-73); Platelet Count 305 X10*3/uL (160-400); Red Blood Count 3.95 X10*6/uL (4.60-5.80); Red Cell Distribution Width 12.4 % (11.0-16.0); Retic HGB Equivalent 36.9 pg (30.0-35.0); Reticulocyte Percent 1.9 % (0.5-1.8); Reticulocytes Absolute 0.075 X10*6/uL (0.026-0.095); White Blood Count 6.6 X10*3/uL (4.8-10.8)
[2024-04-14 08:35] LABS: Estimated Average Glucose 94 mg/dL; Hemoglobin A1c % 4.9 % (<6.0)
[2024-04-14 08:51] LABS: Alanine Aminotransferase 14 U/L (0-40); Albumin Level 4.1 g/dL (3.5-5.0); Alkaline Phosphatase 93 U/L (39-117); Anion Gap 15 (12-20); Aspartate Amino Transferase 29 U/L (5-37); Bilirubin Total 0.7 mg/dL (0.0-1.0); Blood Urea Nitrogen 6 mg/dL (9-16); Carbon Dioxide 29 mmol/L (22-29); Chloride 98 mmol/L (96-108); Cholesterol 166 mg/dL (<200); Estimated Glomerular Filt Rate > 60; Glucose Random 113 mg/dL (60-115); HDL Cholesterol 113 mg/dL (>40); Iron 82 mcg/dL (45-160); LDL Cholesterol Calculated 46 mg/dL (<100); Percent Iron Saturation 30 % (15-50); Potassium 4.3 mmol/L (3.3-5.1); Sodium 138 mmol/L (135-145); Total Iron Binding Capacity 272 mcg/dL (228-428); Total Protein 9.5 g/dL (6.5-8.0); Triglycerides 39 mg/dL (<150); Unsaturated Iron Binding 190 ug/dL
[2024-04-14 09:11] LABS: Ferritin 88 ng/mL (20-250); Free T4 (Free Thyroxine) 0.96 ng/dL (0.71-1.85); Thyroid Stimulating Hormone 3.56 uIU/mL (0.32-4.0)
[2024-04-14 09:45] LABS: Folate 11.9 ng/mL (> or = 4.0); Vitamin B12 748 pg/mL (200-900)
== END 2024-04-14 07:40 | disposition home or self-care (01) ==
LOC: HO.LAB 07:39
PROVIDERS: PCP Internal Medicine; Visit Provider Internal Medicine
DX: R73.02 Impaired glucose tolerance (oral) (principal); E78.00 Pure hypercholesterolemia, unspecified; F10.10 Alcohol abuse, uncomplicated
CPT/HCPCS: 36415; 80053; 80061; 82607; 82728; 82746; 83036; 83540; 84439; 84443; 85025; 85045

== ENCOUNTER 2024-04-30 08:23 | Outpatient (AMB) | payer MEDICARE, MEDICAID, SELFPAY ==
[2024-04-30 08:28] VITALS: BP 110/70; PULSE 68; O2SAT 96; BMI 19.9
--- NOTE | 2024-04-30 08:28 | A.OFFPC_ITS ---
Vital Signs 04/30/24 08:28 Height 5 ft 6 in Weight 123 lb BMI 19.9 BP 110/70 Blood Pressure Location Lt brachial Position Sitting Pulse 68 Pulse Source Pulse Oximeter Pulse Oximetry (%) 96 Oxygen Delivery Method Room Air Intake Visit Reasons: IGT fatty liver , depression Intake Note: Patient is here to follow up Horseradish Maker Required: No Allergies walnut Allergy (Severe, Verified 04/30/24 08:28) THROAT CLOSES Tobacco use date assessed: 04/30/24 Fall risk assessment: No Falls in past year Last assessed Fall Risk: 04/30/24 Dental Screening Dental Screen Date: 04/30/24 HPI IGT fatty liver , depression HPI Details 73 year male with a history of tongue c ancer impaired glucose tolerance history of alcohol abuse hyponatremia fatty liver depression coming in for follow-up. Wellness exam in November. Patient is up-to-date with colonoscopy. R facial biopsy done . as for alcohol3 cans a day. for the tongue cancer - seeing radiology and ENT seeing them Q few months. 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 Father No problems noted. Social History (Updated 12/17/23 @ 09:51 by Sydnee Parmar MD) Housing: House Are you a primary dog daycare provider to a significant other at home: No Do you presently have visiting nurse or other home services: No Alcohol intake: current Alcohol intake frequency: 0-2 drinks per day Alcohol type: beer Comment: drinks 6 beers a day Patient Tobacco Use Status: Former Tobacco user Tobacco use type: Cigarette Years Smoked: stopped 2011 e-Cigarette/Vaping Use: Never Used Second Hand Smoke Exposure: No service: No Current occupational status: retired Cognitive needs: No Hearing needs: No Vision needs: No Questionnaire PHQ-9 Over the last 2 weeks, how often have you been bothered by any of the following problems? 1. Little interest or pleasure in doing things: several days 2. Feeling down, depressed, or hopeless: several days 3. Trouble falling or staying asleep, or sleeping too much: several days 4. Feeling tired or having little energy: several days 5. Poor appetite or overeating: several days 6. Feeling bad about yourself - or that you are a failure or have let yourself or your family down: several days 7. Trouble concentrating on things, such as reading the newspaper or watching television: several days 8. Moving or speaking so slowly that other people could have noticed. Or the opposite - being so fidgety or restless that you have been moving around a lot more than usual: several days 9. Thoughts that you would be better off or of hurting yourself in some way: not at all Total score: 8 Depression Screening Interpretation: Negative Depression Screening Done: Yes 78496 - PHQ-9 Billing: Yes Source: Developed by Drs. Ceasar Pearson, Pinky Tamayo, Zev Gracia and colleagues, with an educational nury from [employer]. Thrive Questionnaire Date Thrive assessed: 12/17/23 Are you currently unemployed and looking for a job?: Yes AUDIT C Alcohol Use Questionnaire (AUDIT-C) 1. How often do you have a drink containing alcohol?: 4 or more times a week 2. How many drinks containing alcohol do you have on a typical day when you are drinking?: 1 or 2 3. How often do you have six or more drinks on one occasion?: Never Total Score: 4 SIERRA-7 AMB Questionnaire SIERRA-7 Date SIERRA - 7 assessed: 12/17/23 Feeling nervous, anxious, or on edge: 0 = Not at all Not being able to stop or control worryin = Not at all Worrying too much about different things: 0 = Not at all Trouble relaxin = Not at all Being so restless that it is hard to sit still: 0 = Not at all Becoming easily annoyed or irritable: 0 = Not at all Feeling afraid as if something awful might happen: 0 = Not at all Total SIERRA-7 score (0-4 normal; 5-9 mild; 10-14 moderate; 15-21 severe): 0 Source: Developed by Drs. Ceasar Pearson, Pinky Tamayo, Zev Gracia and colleagues, with an educational nury from [employer]. Physical exam (Primary Care) Vital Signs: Last Vital Signs Pulse 68 04/30/24 08:28 BP 110/70 04/30/24 08:28 Pulse Ox 96 04/30/24 08:28 Oxygen Delivery Method Room Air 04/30/24 08:28 BMI result Body Mass Index 19.9 Tobacco/Smoking Status: Tobacco use Status Tobacco use date assessed 04/30/24 04/30/24 08:35 Patient Tobacco Use Status Former Tobacco user 04/30/24 08:35 Tobacco use type Cigarette 04/30/24 08:35 e-Cigarette/Vaping Use Never Used 04/30/24 08:35 PHQ-9: PHQ-9 Score PHQ-9: Total score 8 04/30/24 08:58 Depression Screening Interpretation: Negative Thrive Assessment: Date of Thrive Assessment Date Thrive assessed 12/17/23 04/30/24 08:35 Const General: alert; No acute distress Eyes Conjunctivae: conjunctivae normal Resp Auscultation: clear to auscultation bilaterally Cardio Rate: regular rate Rhythm: regular rhythm GI Inspection: Yes normal to inspection Extrem General: Yes normal to inspection and No edema Office Procedures Flu Questionnaire Does the patient have a severe egg allergy?: No Does the patient have severe life threatening allergies?: No Does the patient have a fever or illness today?: No Has the patient ever had Guillain-[place] Syndrome?: No Has the patient ever had any past reaction to a flu shot?: No Immunizations Fluarix Triv [id number] (PF) 45 mcg (15 mcg x 3)/0.5 mL IM syringe Performing Provider: Sydnee Parmar MD [place] [facility] [place] [facility] Administered by: PEPE Segovia on 04/30/24 09:09 Dose Route Admin Location Dispensed Lot Number Expiration Date [facility] [employer] Rental Clerk 0.5 mL IM Left Deltoid 0.5 mL [id number] 01/18/25 [id number] [employer] VIS Given Date VIS Provided VIS Publication Date 04/30/24 Single Vaccine 21 Eligibility Eligibility Date Funding Source Not [facility] Eligible 04/30/24 Private Coding Level of Care Code Est Pt Level 4 (95531) Diagnoses Hx of tongue cancer Z85.810 Hyponatremia E87.1 Recurrent depression F33.9 Impaired glucose tolerance R73.02 Alcohol abuse F10.10 Assessment & Plan Assessment & Plan (1) Hx of tongue cancer: Comment: s/p dissection, 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 Escalante radiosurgery Code(s): Z85.810 - Personal history of malignant neoplasm of tongue Category: Medical Plan: Continue to monitor (2) Hyponatremia: Code(s): E87.1 - Hypo-osmolality and hyponatremia Category: Medical Plan: Resolved (3) Recurrent depression: Comment: decline counselling Code(s): F33.9 - Major depressive disorder, recurrent, unspecified Category: Medical Plan: Discussion about treatment of depression (4) Impaired glucose tolerance: Code(s): R73.02 - Impaired glucose tolerance (oral) Category: Medical Plan: Decrease the amount of carbohydrate intake, pasta, bread, rice and potatoes are all sugar and that is aside from all the sweet stuff, remember that fruits are good but they are Sweet also. (5) Alcohol abuse: Code(s): F10.10 - Alcohol abuse, uncomplicated Category: Social Hx Plan: Discussion with the patient regarding abstaining. Orders: Orders Influenza [id number] Immunization Today Z23 - Encounter for immunization Medications: New Fluarix Triv [id number] (PF) (flu vacc [id number] 6mos up(PF)) 0.5 mL IM ONCE 0.5 mL 0RF NS Z23 - Encounter for immunization
== END 2024-04-30 09:01 | disposition home or self-care (01) ==
PROVIDERS: PCP Internal Medicine; Visit Provider Internal Medicine
DX: Z85.810 Personal history of malignant neoplasm of tongue (principal); E87.1 Hypo-osmolality and hyponatremia; F33.9 Major depressive disorder, recurrent, unspecified; R73.02 Impaired glucose tolerance (oral); F10.10 Alcohol abuse, uncomplicated; Z23 Encounter for immunization

== ENCOUNTER → 2024-04-30 08:23 | Outpatient (BNVA) | payer MEDICARE, MEDICAID, SELFPAY | PROVIDERS: PCP Internal Medicine; Visit Provider Internal Medicine | DX: Z23 Encounter for immunization (principal); E87.1 Hypo-osmolality and hyponatremia; F33.9 Major depressive disorder, recurrent, unspecified; R73.02 Impaired glucose tolerance (oral); F10.10 Alcohol abuse, uncomplicated; Z85.810 Personal history of malignant neoplasm of tongue | CPT/HCPCS: 90471; 90656; 96127; 99212 ==

== ENCOUNTER → 2024-08-27 14:59 | Outpatient (BNVA) | payer MEDICARE, MEDICAID, SELFPAY | PROVIDERS: PCP Internal Medicine | DX: G31.84 Mild cognitive impairment of uncertain or unknown etiology (principal); F10.10 Alcohol abuse, uncomplicated; F33.9 Major depressive disorder, recurrent, unspecified | CPT/HCPCS: 99212 ==

== ENCOUNTER → 2024-08-27 14:59 | Outpatient (AMB) | payer MEDICARE, MEDICAID, SELFPAY ==
--- OUTSIDE RECORDS SUMMARY | 2024-08-27 15:01 | XMS_ITS | Clinical Summary ---
Author Organization [employer] Address [address] [place] [address] [address] [place] [address] Care Team Providers Care Corporate Relations Manager Name Role Phone Brenden Odonnell Unavailable Unavailable Social History Tobacco Use Types Packs/Day Years Used Date Smoking Tobacco: Never Assessed Sex and Gender Information Value Date Recorded Sex Assigned at Male 03/03/2024 1:30 PM EDT Legal Sex Male 1:28 PM EDT Gender Identity Male 03/03/2024 1:30 PM EDT Sexual Orientation Straight 03/03/2024 1: 30 PM EDT Plan of Treatment Health Maintenance Due Date Last Done Comments CT Colonography 1950 Colonoscopy 1950 Colorectal Cancer Screening 1950 Depression Screening 1950 FIT DNA/Cologuard 1950 FIT 1950 FOBT 1950 Lipid Panel 1950 SDOH Screening 1950 Sigmoidoscopy 1950 Alcohol/Substance Use Screening 1962 Tobacco Screening 1962 Hepatitis C Screening 1968 DTaP/Tdap/Td Vaccines (1 - Tdap) 05/29/2005 05/28/20 05 Zoster Vaccines (2 of 3) 02/05/2012 12/11/2011 Pneumococcal Vaccine: 50+ Ye ars (2 of 2 - PCV) 03/20/2012 03/20/2011 COVID-19 Vaccine ( - 2023-2 5 season) 2024 Influenza Vaccine (#1) 2024 RSV Patients and Pa tients Aged 60 years or older (1 - 1-dose 75+ series) 2025 HIB Vaccines Aged Out No longer eligi ble based on patient's age to complete this topic HPV Vaccines Aged Out No longer eligi ble based on patient's age to complete this topic Hepatitis A Vaccines Aged Out No long er eligible based on patient's age to complete this topic Hepatitis B Vaccines Aged Out No long er eligible based on patient's age to complete this topic IPV Vaccines Aged Out No longer eligi ble based on patient's age to complete this topic Meningococcal Vaccine Aged Out No michael chinmay eligible based on patient's age to complete this topic RSV under 20 months Aged Out No longe r eligible based on patient's age to complete this topic Rotavirus Vaccines Aged Out No longer eligible based on patient's age to complete this topic Care Teams Corporate Relations Manager Relationship Specialty Start Date End Date Brenden Odonnell [facility] Navigator 02/21/24
--- OUTSIDE RECORDS SUMMARY | 2024-08-27 15:01 | XMS_ITS | Clinical Summary ---
Author Organization [facility] Facility Address [address] [address] Care Team Providers Care Application Security Developer Name Role Phone Sydnee Parmar MD Primary Care Provider [phone] Social History Tobacco Use Types Packs/Day Years Used Date Smoking Tobacco: Never Assessed Sex and Gender Information Value Date Recorded Sex Assigned at Not on file Legal Sex Male 9:03 AM EDT Gender Identity Not on file Sexual Orientation Not on file Plan of Treatment Health Maintenance Due Date Last Done Comments Colorectal Cancer Screening: Annual FOBT 1999 Colorectal Cancer Screening: Colonoscopy 1999 Colorectal Cancer Screening: Sigmoidoscopy 1999 Pneumococcal Vaccine: 65+ Ye ars (2 of 2 - PCV) 2015 03/20/2011 Influenza Vaccine (#1) 2024 Hepatitis B Vaccine Aged Out No longe r eligible based on patient's age to complete this topic Insurance [facility] MEDICARE MEDICARE [facility] Care Teams Application Security Developer Relationship Specialty Start Date End Date Sydnee Parmar MD [facility] [place] [address] [place], [place] PCP - General Internal Medicine 03/07/23
--- NOTE | 2024-08-27 15:04 | A.OFFPC_ITS ---
Vital Signs 08/27/24 15:07 Height 5 ft 6 in Weight 118 lb 8 oz BMI 19.1 BP 120/72 Blood Pressure Location Lt brachial Position Sitting Pulse 98 Pulse Source Pulse Oximeter Temp 97.3 F Temp Source Skin Pulse Oximetry (%) 96 Oxygen Delivery Method Room Air Intake Visit Reasons: memory concerns Intake Note: Patient is here to follow up on Memory concerns. 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 Accompanied by: Spouse Allergies walnut Allergy (Severe, Verified 08/27/24 15:06) THROAT CLOSES Medication List - Last Reconciled 08/27/24 by Preeti Dee PA-C food supplemt, lactose-reduced (Ensure oral liquid) ea PO BID Tobacco use date assessed: 08/27/24 Fall risk assessment: 2 + Falls in past year Last assessed Fall Risk: 08/27/24 Dental Screening Dental Screen Date: 08/27/24 Did you have a dental visit in the last 12 months?: Yes Did you have a dental problem in the last 6 months where you did not have access to dental care?: No Was dental information given to patient?: Patient has dentist HPI memory concerns HPI Details 74-year-old male with past medical histo ry of alcohol abuse, tongue cancer, impaired glucose tolerance, hyponatremia, fatty liver disease, depression last seen 04/[address] Parmar coming in for acute problem. Patient presents today with his . He reports drinking beer 3-4 glasses per day states he had half a sandwich yesterday however his states he did not eat yesterday or the day before. She tells us he has not eaten in several days and we will occasionally have an ensure if offered but does not typically have more than 1. He has not been drinking water. She also reports that he has been falling down and been more forgetful lately. He does endorse excessive alcohol consumption but does not feel he has a problem. 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 Father No problems noted. Social History Housing: House Are you a primary career and transition teacher to a significant other at home: No Do you presently have visiting nurse or other home services: No Alcohol intake: current Alcohol intake frequency: 0-2 drinks per day Alcohol type: beer Comment: drinks 6 beers a day Patient Tobacco Use Status: Former Tobacco user Tobacco use type: Cigarette Years Smoked: stopped 2011 e-Cigarette/Vaping Use: Never Used Second Hand Smoke Exposure: Yes service: No Current occupational status: retired Cognitive needs: No Hearing needs: No Vision needs: No Questionnaire PHQ-9 Over the last 2 weeks, how often have you been bothered by any of the following problems? 1. Little interest or pleasure in doing things: not at all 2. Feeling down, depressed, or hopeless: not at all 3. Trouble falling or staying asleep, or sleeping too much: not at all 4. Feeling tired or having little energy: not at all 5. Poor appetite or overeating: not at all 6. Feeling bad about yourself - or that you are a failure or have let yourself or your family down: not at all 7. Trouble concentrating on things, such as reading the newspaper or watching television: not at all 8. Moving or speaking so slowly that other people could have noticed. Or the opposite - being so fidgety or restless that you have been moving around a lot more than usual: not at all 9. Thoughts that you would be better off or of hurting yourself in some way: not at all Total score: 0 Depression Screening Interpretation: Negative Depression Screening Done: Yes Source: Developed by Drs. Ceasar Pearson, Pinky Tamayo, Zev Gracia and colleagues, with an educational nury from [employer]. Thrive Questionnaire Date Thrive assessed: 08/27/24 I am a: Patient What is your living situation today?: I have a steady place to live Within the past 12 months, did the food you bought not last and you didn't have the money to get more?: Never true Within the past 12 months, did you worry whether your food would run out before you got money to buy more?: Never true Do you have trouble paying for medicines?: No Do you have trouble getting transportation to medical appointments?: No Do you have trouble paying your heating and electricity bill?: No Do you have trouble taking care of your child, family member or friend?: No Do you have trouble with day-to-day activities such as bathing, preparing meals, shopping, managing finances, etc.?: No Are you currently unemployed and looking for a job?: No Are you interested in more education?: No Please select the resources that you would like help with: None Currently or been in a relationship where the following occur: No concerns reported THRIVE Score: 0 AUDIT C Alcohol Use Questionnaire (AUDIT-C) 1. How often do you have a drink containing alcohol?: 2-4 times a month 2. How many drinks containing alcohol do you have on a typical day when you are drinking?: 1 or 2 Total Score: 2 SIERRA-7 AMB Questionnaire SIERRA-7 Date SIERRA - 7 assessed: 08/27/24 Feeling nervous, anxious, or on edge: 0 = Not at all Not being able to stop or control worryin = Not at all Worrying too much about different things: 0 = Not at all Trouble relaxin = Not at all Being so restless that it is hard to sit still: 0 = Not at all Becoming easily annoyed or irritable: 0 = Not at all Feeling afraid as if something awful might happen: 0 = Not at all Total SIERRA-7 score (0-4 normal; 5-9 mild; 10-14 moderate; 15-21 severe): 0 Source: Developed by Drs. Ceasar Pearson, Pinky Tamayo, Zev Gracia and colleagues, with an educational nury from [employer]. Review of Systems Const Denies body aches, Denies chills, Denies fever(s), Denies headache(s) and Denies poor appetite Eyes Reports no additional complaints ENT Denies dizziness and Denies headache(s) Card Denies chest pain, Denies lightheadedness and Denies dyspnea Resp Denies cough and Denies dyspnea Reports no additional complaints Musc Reports no additional complaints and Denies abnormal gait Skin/Breast Reports system reviewed and no additional complaints, except as documented Neuro Denies abnormal gait, Denies dizziness and Denies headache(s) Psych Reports no additional complaints Physical exam (Primary Care) Vital Signs: Last Vital Signs Temp 97.3 F 08/27/24 15:07 Pulse 98 08/27/24 15:07 BP 120/72 08/27/24 15:07 Pulse Ox 96 08/27/24 15:07 Oxygen Delivery Method Room Air 08/27/24 15:07 BMI result Body Mass Index 19.1 Tobacco/Smoking Status: Tobacco use Status Tobacco use date assessed 08/27/24 08/27/24 15:12 Patient Tobacco Use Status Former Tobacco user 08/27/24 15:12 Tobacco use type Cigarette 08/27/24 15:12 e-Cigarette/Vaping Use Never Used 08/27/24 15:12 PHQ-9: PHQ-9 Score PHQ-9: Total score 0 08/27/24 15:18 Depression Screening Interpretation: Negative Thrive Assessment: Date of Thrive Assessment Date Thrive assessed 08/27/24 08/27/24 15:12 Currently or been in a relationship where the following occur: No concerns reported Const General: cooperative, healthy appearing, comfortable and no acute distress Orientation/consciousness: patient oriented x3 HENMT Head: Yes normocephalic Ears: hearing grossly normal bilaterally General nose exam: Normal external nose present Eyes General: appearance normal, both eyes and all related structures Conjunctivae: conjunctivae normal Neck Neck: Yes full ROM and Yes no lymphadenopathy Resp Effort & Inspection: normal respiratory effort Auscultation: clear to auscultation bilaterally, no crackles, no rales, no rhonchi and no wheezes Cardio Rate: regular rate Rhythm: regular rhythm Skin General skin exam: no rashes or lesions noted Neuro General: patient oriented x3 Gait exam (Neuro): Normal gait present Extrem General: Yes normal to inspection, Yes full ROM and No edema Psych Affect: normal affect Attitude: cooperative Insight: Good insight present (Psych) Judgement: Good judgement present (Psych) Coding Level of Care Code Est Pt Level 4 (25176) Diagnoses Mild cognitive impairment G31.84 Alcohol abuse F10.10 Recurrent depression F33.9 Assessment & Plan Assessment & Plan (1) Mild cognitive impairment: Code(s): G31.84 - Mild cognitive impairment of uncertain or unknown etiology Category: Medical Plan: Mini-mental status exam was performed today patient scored 22/30 and did have issues recalling the year, spelling world backwards and recalling words provided early in the exam. Ordered for CT scan for further evaluation refer to Neurology for mild cognitive impairment. Strongly advised abstaining from alcohol and offered comprehensive Care [facility] which was declined today. (2) Alcohol abuse: Code(s): F10.10 - Alcohol abuse, uncomplicated Category: Social Hx Plan: Discussed the importance alcohol cessation as he does not have an appetite and does not drink water while he is drinking beer. Patient states he does not have a problem. I offered the comprehensive Care Clinic referral which was declined today. I did stress the importance of alcohol cessation in regards to his health patient understands the risks and we will reach out if anything changes. Discussed at length the importance of well-balanced diet and good hydration. (3) Recurrent depression: Comment: decline counselling Code(s): F33.9 - Major depressive disorder, recurrent, unspecified Category: Medical Plan: Declining counseling does not feel he has depression Plan This note was constructed using voice recognition software. While every effort has been made to ensure accuracy and linotype worker, still areas may have been included sometimes these areas may affect the content or meeting of the given symptoms. Total time spent caring for the patient today was 30 minutes. This includes time spent before the visit reviewing the chart, time spent during the visit, and time spent after the visit and documentation. Orders: Orders CT head/brain wo IV con Today R41.89 - Other symptoms and signs involving cognitive functions and awareness, R46.89 - Other symptoms and signs involving appearance and behavior Referrals Neurology Referral G31.84 - Mild cognitive impairment of uncertain or unknown etiology
== END | disposition home or self-care (01) ==
PROVIDERS: PCP Internal Medicine

== ENCOUNTER 2024-09-21 07:41 | Outpatient (REF) | payer MEDICARE, MEDICAID, SELFPAY ==
--- NOTE | ~2024-09-21 | CT_ITS ---
CLINICAL HISTORY: R46.89 - Other symptoms and signs involving appearance and behavior CT head without contrast Comparison: 03/02/2023 Findings: No intra-axial mass, midline shift, hydrocephalus, or acute hemorrhage. No significant atrophy-like change or white matter disease. There is no sinus or mastoid fluid. The orbits are within normal limits. There is no acute fracture. IMPRESSION: 1. No acute intracranial findings. This document has been electronically signed by: Cameron Esqueda MD on 09/21/2024 08:54:51
--- OUTSIDE RECORDS SUMMARY | 2024-09-21 07:45 | XMS_ITS | Clinical Summary ---
Author Organization [facility] Facility Address [address] [address] Care Team Providers Care Cloth Cutter Name Role Phone Sydnee Parmar MD Primary Care Provider [phone] Social History Tobacco Use Types Packs/Day Years [...] patient's age to complete this topic Insurance [facility] MEDICARE MEDICARE [facility] Care Teams Cloth Cutter Relationship Specialty Start Date End Date Sydnee Parmar MD [facility] [place] [id number] [place], [place] PCP - General Internal Medicine 03/07/23
--- OUTSIDE RECORDS SUMMARY | 2024-09-21 07:45 | XMS_ITS | Clinical Summary ---
Author Organization [employer] Address [address] [place] [address] [address] [place] [address] Care Team Providers Care Museum Tour Guide Name Role Phone Brenden Odonnell Unavailable Unavailable [...] patient's age to complete this topic Insurance DENTAL - HSN FULL (MEDICAID) Care Teams Museum Tour Guide Relationship Specialty Start Date End Date Brenden Odonnell Health Navigator 02/21/24
--- OUTSIDE RECORDS SUMMARY | 2024-09-21 07:45 | XMS_ITS | Data Portability ---
Author Organization [place] - [facility], Allergy Address [address] [place] [phone] Assessment No assessment recorded. Plan of Treatment Reminders Order Date Submit Date Provider Last Modified By Organization Details Last Modified Time Details Appointments Establish ed 30 2024 11:00A M GERBER Yanez MD Not available Not available Not available Lab None recorded. Referral None recorded. Procedures None recorded. Surgeries None recorded. Imaging None recorded. Medication Orders None recorded. Patient TargetsNo targets recorded. Patient InstructionsNo instructions recorded. Reason for Referral None Reported. Results Created Date Observation Date Name Description Value Unit Range Abnormal Flag Note LastModifiedBy Organization Detail LastModifiedTime 03/10/20 24 08/08/2018 imagi ng/di agnos tic resul t No observ ation record ed. [email or web address] Not Available 20:36:07 03/10/20 24 08/08/2018 imagi ng/di agnos tic resul t No observ ation record ed. [email or web address] Not Available 20:36:09 03/10/20 24 08/22/2023 imagi ng/di agnos tic resul t No observ ation record ed. [email or web address] Not Available 20:36:11 03/10/20 24 12/15/2022 imagi ng/di agnos tic resul t No observ ation record ed. [email or web address] Not Available 20:36:51 03/10/20 24 12/31/2022 imagi ng/di agnos tic resul t No observ ation record ed. [email or web address] Not Available 20:37:03 Result Notes None recorded. 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, unspecifi ed; Note: Date Diagnosed : 08/10/2016 3:46 PM (C06.9) Not Available [facility] 4 03:08:11 Localized swelling of head 39338043557 402443 Active 2022 Localized swelling, mass and lump, head; Note: Date Diagnosed : 06/28/2023 9:12 AM (R22.0) Not Available [facility] 4 03:08:13 Dysphagia 45481977 Active 2022 Dysphagia , unspecifi ed; Note: Date Diagnosed : 04/26/2023 8:58 AM (R13.10) Not Available [facility] 4 03:08:12 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; Note: Date Diagnosed : 11/29/2022 11:41 AM (D10.5) Not Available [facility] 4 03:08:11 Follow-up visit Active 2018 Encounter for follow-up examinati on after completed treatment for malignant neoplasm; Note: Date Diagnosed : 10/03/2016 2:14 PM (Z08) ; Start Date : 7 Medical surveilla nce following completed treatment ; Note: Date Diagnosed : 08/08/2018 8:48 AM (Z09) Not Available [facility] 4 03:08:12 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; Note: Date Diagnosed : 12/04/2022 2:37 PM (C11.1) Not Available [facility] 4 03:08:11 Lesion of oral mucosa 85219707800 00187 Active 2016 Other lesions of oral mucosa; Note: Date Diagnosed : 03/01/2017 10:50 AM (K13.79) Not Available [facility] 4 03:08:11 History of malignant neoplasm of oral cavity 675358441 Active 2016 Personal history of malignant neoplasm of other sites of lip, oral cavity, and pharynx; Note: Date Diagnosed : 7 10:55 AM (Z85.818) Not Available [facility] 4 03:08:12 Disorder of nasal sinus 2279729 Active 2018 Other specified disorders of nose and nasal sinuses; Note: Date Diagnosed : 08/08/2018 8:48 AM (J34.89) Not Available [facility] 4 03:08:11 Disorder of the nose 77893288 Active 2018 Other specified disorders of nose and nasal sinuses; Note: Date Diagnosed : 08/08/2018 8:48 AM (J34.89) Not Available [facility] 4 03:08:11 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 704997494 Active 2023 GERBER SHIPLEY MD [address] [place] [address] [place], [phone] , [place] - [facility] 4 09:05:11 Abnormal findings on diagnosti c imaging of skull and head 119369453 Active 2023 Abnormal findings on diagnosti c imaging of skull and head, not elsewhere classifie d; Note: Date Diagnosed : 09/25/2023 9:02 AM (R93.0) Not Available [facility] 4 03:08:12 Notes:Encounter for other sp ecified postprocedural aftercare Note: Date Diagnosed: 10/03/2016 10:06 AM (Z48.8) Note: Date Diagnosed: 10/03/2016 10:06 AM (Z48.8) Problem Notes None recorded. Procedures Surgical History Date Name Laterality Status Provider Name and Address Organization Details Recorded Time 08/03/2024 FFL_RE completed GERBER SHIPLEY MD [address] [place] [address], [phone], [facility] - [facility] 08/03/2024 11:33:05 04/17/2024 FFL_RE completed GERBER SHIPLEY MD [address] [place] [address],[address], [phone], [place] - [facility] 04/17/2024 09:03:39 01/10/2024 FFL_RE completed GERBER SHIPLEY MD [address] [place] [address], [phone], [facility] 01/10/2024 09:05:00 Imaging Results Imaging Date Name Status LastModified by Organiz ation Details LastModified Time 08/08/2018 imaging/diag nostic result completed Information not available 03/10/2024 20:36:07 08/08/2018 imaging/diag nostic result completed Information not available 03/10/2024 20:36:09 08/22/2023 imaging/diag nostic result completed Information not available 03/10/2024 20:36:11 12/15/2022 imaging/diag nostic result completed Information not available 03/10/2024 20:36:51 12/31/2022 imaging/diag nostic result completed Information not available 03/10/2024 20:37:03 Procedure Notes None recorded. Medical Equipment None Reported. Medications Name Sig Start Date Stop Date Status Note LastModified by Organization Details LastModified Time lidoc/nys ta/diphe/ antac TAKE 5 TO 10ML BY MOUTH EVERY 2 TO 4 HOURS NEEDED. SWISH AND SWALLOW. SHAKE WELL BEFORE USE. active Not Available Not Available No t Available nysta/lid oc/aller/ antac TAKE 1 TO 2 TEASPOON S EVERY 2 TO 4 HOURS NEEDED , SWISH AND SWALLOW. SHAKE WELL BEFORE USE. active Not Available Not Available No t Available Augmentin 875 mg-125 mg tablet 2018 active Medicati on ID: [id number] D uration Value: 10 Prescri bed By Name: Gerber kaye MD Brand Name: Augmenti basilia Send Method: E-Prescr ibed Sub s Allowed: subs OK Speci al Instruct ion: 1 po bid for 10 days Med icationG enericNa me: Augmenti n Not Available Not Available Not Available acyclovir 200 mg/5 mL oral suspensio n TAKE 10 ML BY MOUTH TWICE A DAY active Not Available Not Available No t Available azithromy clarissa 250 mg tablet TAKE 2 TABLETS ON FIRST DAY , THEN 1 TABLET DAILY FOR 4 DAYS active Not Available Not Available No t Available Lidocaine Viscous 2 % mucosal solution active Not Available Not Available Not Available valacyclo vir 1 gram tablet TAKE ONE TABLET BY MOUTH EVERY 12 HOURS. 2 DOSES/TI MES active Not Available Not Available No t Available fluconazo le 200 mg tablet TAKE 1 TABLET BY MOUTH DAILY. active Not Available Not Available No t Available fluoroura cil 5 % topical cream APPLY TWO TIMES A DAY TO RIGHT CHEEK FOR 3 WEEKS, EXPECT REDNESS, IRRITATI ON. D/C IF BLEEDING , UNCOMFOR TABLE active Not Available Not Available No t Available oxycodone 5 mg/5 mL oral solution 5-10 ml by mouth 2016 active Medicati on ID: [id number] D uration Value: 7 Prescri bed By Name: KARINA Gonzales nd Name: oxycodon e Send Method: E-Prescr ibed Sub s Allowed: subs OK [facility] Not Available Not Available Not Available acetamino phen 300 mg-codein e 15 mg tablet TAKE ONE TABLET BY MOUTH EVERY 6 HOURS NEEDED active Not Available Not Available No t Available amoxicill in 500 mg tablet TAKE ONE TABLET BY MOUTH THREE TIMES A DAY active Not Available Not Available No t Available Augmentin 250 mg-62.5 mg/5 mL oral suspensio n 09/17 completed Medicati on ID: [id number] D uration Value: 10 Brand Name: Augmenti n Send Method: E-Prescr ibed Sub s Allowed: subs OK Speci al Instruct ion: Take 3 cc po BID X 10 days Med icationG enericNa me: Augmenti n Not Available Not Available Not Available folic acid 1 mg tablet TAKE 1 TABLET BY MOUTH DAILY. active Not Available Not Available No t Available Vitamin B-1 100 mg tablet TAKE 1 TABLET BY MOUTH DAILY. active Not Available Not Available No t Available multivita min capsule 2016 active Medicati on ID: [id number] B rand Name: multivit river Sen d Method: E-Prescr ibed Sub s Allowed: subs OK Medic ationGen ericName : multivit river Not Available Not Available Not Available mirtazapi ne 7.5 mg tablet TAKE ONE TABLET BY MOUTH EVERY EVENING AT BEDTIME active Not Available Not Available No t Available Vitals Date Recorded Body height Body mass index (BMI) Body weight Provider Name and Address Organization Details Last Updated DateTime 01/10/2024 167.64 cm 19.4 kg/m2 04984.08 nate Yady Jaime [place] - [facility] 01/10/2024 09:02:14 Date Recorded Body height Body mass index (BMI) Body weight Provider Name and Address Organization Details Last Updated DateTime 04/17/2024 167.64 cm 19.7 kg/m2 25345.27 nate Yady Jaime [place] - [facility] 04/17/2024 08:47:48 Date Recorded Body height Body mass index (BMI) Body weight Provider Name and Address Organization Details Last Updated DateTime 08/03/2024 167.64 cm 19.7 kg/m2 13009.27 nate Yady Jaime [place] - [facility] 08/03/2024 11:33:38 Social History None recorded. Functional Status None recorded. Mental Status None recorded. Family History Nothing Reported. Medical History No medical history recorded. Past Encounters Encounter ID Performer Location Encounter Start Date Encounter Closed Date Diagnosis/Indication Diagnosis SNOMED-CT Code Diagnosis ICD10 Code Diagnosis Note [id number] GERBER SHIPLEY MD [facility] on [address] [place] [phone] 01/10/2024 08:45:30 01/10/2024 10:28:37 History of malignant neoplasm of digestive organ 7469901308 7327348 Z85.00 Screening for malignant neoplasm of respiratory tract 227443165 Z12.2 No evidence of disease on exam or laryngosco py. Neck exam was benign. We will defer a CT neck with contrast given the stability of his exam and low likelihood the PET uptake was due to malignancy . He will return in 3 months for routine surveillan ce. I discussed seeing a dentist about a partial denture to help his chewing. 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 We will continue routine surveillan ce. Screening for malignant neoplasm of respiratory tract 904029750 Z12.2 No evidence of disease on exam or laryngosco py. Neck exam was benign. F/u 4 months. 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 We will continue routine surveillan ce. Screening for malignant neoplasm of respiratory tract 215098250 Z12.2 No evidence of disease on exam or laryngosco py. Neck exam was benign. F/u 4 months. 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 957169149 K11.7 continue hydration Health Concerns Section Related Observation LastModified by Organization Detai ls LastModified Time None Recorded Concern Status LastModified by Organization Details LastModified Time None Recorded Advance Directives Directive None Recorded Payers Encounter Date Sequence Insurance Name Policy Number Policy Padilla Covered Member ID Padilla Member ID Guarantor Name 01/10/2024 2 [place] [id number] Addy Roland Jr [id number] Addy Roland Jr 01/10/2024 1 [place] [employer] Addy Roland Jr [id number] Addy Roland Jr 04/17/2024 1 [place] [employer] Addy Roland Jr [id number] Addy Roland Jr 04/17/2024 2 [place] [facility] Addy Roland Jr [id number] Addy Roland Jr 08/03/2024 1 [place] [employer] Addy Roland Jr [id number] Addy Roland Jr 08/03/2024 2 [place] [facility] Addy Roland Jr [id number] Addy Roland Jr Notes Date Note Type Note Provider Name and Address Organization Details Recorded Time 01/10/2024 text/html 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 He was treated with XRT which finished 04/18/23. No chemo was given. He is able to eat and drink without a problem. He has trouble chewing due to lack of teeth. Denies pain. PET 08/2022 showed resolution of uptake in the right tonsil area and new elongated activity in the left longus coli muscle near C1 likely benign. I intended to obtain a contrasted CT scan to further evaluate this but it was not done. 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 He was treated with XRT which finished 04/18/23. No chemo was given. He is able to eat and drink without a problem with only mild dysphagia. Denies pain. PET 08/2022 showed resolution of uptake in the right tonsil area and new elongated activity in the left longus coli muscle near C1 likely benign. 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 He was treated with XRT which finished 04/18/23. No chemo was given. He is able to eat and drink without a problem with only mild dysphagia but he reports food does not taste good. Denies pain. PET 08/2022 showed resolution of uptake in the right tonsil area and new elongated activity in the left longus coli muscle near C1 likely benign. He denies pain and voice change. GERBER SHIPLEY MD [address] [place] [address], [place], [phone], [facility] - [facility] 08/03/2024 11:34:38
== END 2024-09-21 07:42 | disposition home or self-care (01) ==
LOC: HO.CT 07:41
PROVIDERS: PCP Internal Medicine
DX: R46.89 Other symptoms and signs involving appearance and behavior (principal); R41.89 Other symptoms and signs involving cognitive functions and awareness
CPT/HCPCS: 70450

== ENCOUNTER → 2024-09-21 07:43 | Outpatient (BNV) | payer MEDICARE, MEDICAID, SELFPAY | PROVIDERS: PCP Internal Medicine; Visit Provider Specialist | DX: R41.89 Other symptoms and signs involving cognitive functions and awareness (principal); R46.89 Other symptoms and signs involving appearance and behavior | CPT/HCPCS: 70450 ==

== ENCOUNTER 2024-12-21 08:52 | Outpatient (AMB) | payer MEDICARE, MEDICAID, SELFPAY ==
[2024-12-21 08:59] VITALS: BP 114/68; PULSE 61; O2SAT 98; BMI 18.7
--- NOTE | 2024-12-21 08:59 | AM.OFFVISMDC ---
Intake Vital Signs 12/21/24 08:59 Height 5 ft 6 in Weight 116 lb BMI 18.7 BP 114/68 Blood Pressure Location Lt brachial Position Sitting Pulse 61 Pulse Source Pulse Oximeter Pulse Oximetry (%) 98 Oxygen Delivery Method Room Air Intake Visit Reasons: SWV G0439 Allergies walnut Allergy (Severe, Verified 12/21/24 08:59) THROAT CLOSES Medication List - Last Reconciled 12/21/24 by Sydnee Parmar MD food supplemt, lactose-reduced (Ensure oral liquid) ea PO BID HPI SWV G0439 HPI Details Otology ENT surgeons patient goes to addiction Medicine [facility] Dr. Altamirano. CT scan done and was told by oncology Dr. 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 Father No problems noted. Social History (Updated 12/21/24 @ 09:27 by Sydnee Parmar MD) Housing: House Are you a primary ambulatory care to a significant other at home: No Do you presently have visiting nurse or other home services: No Alcohol intake: current Alcohol intake frequency: 0-2 drinks per day Alcohol type: beer Comment: drinks 6 beers a day, 12 cans in a day Patient Tobacco Use Status: Former Tobacco user Tobacco use type: Cigarette Years Smoked: stopped 2012pot smoking e-Cigarette/Vaping Use: Never Used Second Hand Smoke Exposure: Yes service: No Current occupational status: retired Cognitive needs: No Hearing needs: No Vision needs: No Questionnaire Medicare Wellness Checkup [age] What gender do you identify with?: male During the past 4 weeks, how much have you been bothered by emotional problems such as feeling anxious, depressed, irritable, sad or downhearted, and blue?: not at all During the past 4 weeks, has your physical & emotional health limited your social activities with family, friends, neighbors, or groups?: slightly During the past 4 weeks, how much bodily pain have you generally had?: mild pain During the past 4 weeks, was someone available to help you if you needed & wanted help?: yes, as much as I wanted During the past 4 weeks, what was the hardest physical activity you could do for at least 2 minutes?: light Can you get to places out of walking distance without help? (For eg., can you travel alone on buses, taxis or drive your car?): No Can you go shopping for groceries or clothes without someone's help?: Yes Can you prepare your own meals?: Yes Can you do your housework without help?: Yes Because of any health problems, do you need the help of another person with your personal care needs such as eating, bathing, dressing or getting around the house?: No Can you handle your own money without help?: Yes During the past 4 weeks, how would you rate your health in general?: fair During the past 4 weeks how have things been going for you?: good & bad parts about equal Are you having difficulties driving your car?: no Do you always fasten your seat belt when you are in a car?: yes, usually During past 4 weeks, have you been bothered by the following: never: Falling or dizzy when standing up, Problems using the telephone? and Tiredness or fatigue? and seldom: Sexual problems? and Teeth or denture problems? Have you fallen 2 or more times in the past year?: Yes Are you afraid of falling?: No Are you a smoker?: no During the past 4 weeks, how many drinks of wine, beer, or other alcoholic beverages did you have?: 6-9 drinks per week Do you exercise for about 20 minutes 3 or more times a week?: no, I usually do not exercise this much Have you been given information to help with the following?: no: Hazards in your house that might hurt you? and no: Keeping track of your medications? How often do you have trouble taking medicines the way you have been told to take them?: I always take medicine as prescribed How confident are you that you can control & manage most of your health problems?: very confident What is your race?: White PHQ-9 Over the last 2 weeks, how often have you been bothered by any of the following problems? 1. Little interest or pleasure in doing things: several days 2. Feeling down, depressed, or hopeless: several days 3. Trouble falling or staying asleep, or sleeping too much: not at all 4. Feeling tired or having little energy: several days 5. Poor appetite or overeating: several days 6. Feeling bad about yourself - or that you are a failure or have let yourself or your family down: not at all 7. Trouble concentrating on things, such as reading the newspaper or watching television: not at all 8. Moving or speaking so slowly that other people could have noticed. Or the opposite - being so fidgety or restless that you have been moving around a lot more than usual: several days 9. Thoughts that you would be better off or of hurting yourself in some way: not at all Total score: 5 Depression Screening Interpretation: Positive Depression Screening Done: Yes 98651 - PHQ-9 Billing: Yes Source: Developed by Drs. Ceasar Pearson, Pinky Tamayo, Zev Gracia and colleagues, with an educational nury from [employer]. Thrive Questionnaire Date Thrive assessed: 08/27/24 SIERRA-7 AMB Questionnaire SIERRA-7 Date SIERRA - 7 assessed: 08/27/24 Source: Developed by Drs. Ceasar Pearson, Zev Tierney and colleagues, with an educational nury from [employer]. Review of Systems Const Denies poor appetite and Denies weakness Eyes Denies no additional complaints ENT Reports Normal hearing present, Denies dizziness, Denies nasal congestion, Denies tinnitus and Denies sore throat Card Denies chest pain, Denies syncope, Denies rapid heart rate and Denies dyspnea Resp Denies cough and Denies dyspnea GI Denies change in stool character, Reports constipation, Denies diarrhea, Denies nausea and Denies vomiting Denies dysuria and Denies urinary frequency Neuro Reports Normal hearing present, Denies confusion, Denies dizziness, Denies syncope and Denies weakness Psych Denies confusion Physical Exam Vital Signs: Last Vital Signs Pulse 61 06/02/25 08:59 BP 114/68 12/21/24 08:59 Pulse Ox 98 12/21/24 08:59 Oxygen Delivery Method Room Air 12/21/24 08:59 BMI result Body Mass Index 18.7 Const General: No confusion Orientation/consciousness: No confusion HEENT Head: Yes normocephalic Ears: external ears normal and TM's normal bilaterally Face and sinus: Yes normal facial exam Mouth: moist mucous membranes Throat: Yes tonsils normal Eyes Conjunctivae: conjunctivae normal Pupils: Equal, round and reactive pupils present and Pupil accommodation reflex normal Direct Ophthalmoscopy: normal light reflex Neck Neck: No lymphadenopathy Thyroid: Thyroid normal Chest Chest palpation & inspection: normal inspection of the chest Resp Effort & Inspection: normal respiratory effort and no audible wheezes Auscultation: clear to auscultation bilaterally, no crackles, no wheezes and lung sounds not diminished Cardio Rate: regular rate Rhythm: regular rhythm Peripheral pulses: radial pulses present and dorsalis pedis present GI Palpation (GI): no masses Auscultation: normal bowel sounds and normoactive bowel sounds Rectal Exam - Male: Yes deferred Skin General skin exam: no rashes or lesions noted Rashes: no rashes Neuro General: No confusion Cranial nerves: Yes Equal, round and reactive pupils present and Yes Normal hearing present Cognition (Neuro): normal cognition Gait exam (Neuro): Normal gait present Motor exam (neuro): 5/5 motor strength present throughout Deep tendon reflexes (DTR's): Right brachioradialis reflex intensity grade: 2+, Left brachioradialis reflex intensity grade: 2+, Right patellar reflex intensity grade: 2+ and Left patellar reflex intensity grade: 2+ Extrem General: No edema Assessment & Plan Assessment & Plan (1) Encounter for subsequent annual wellness visit (AWV) in Medicare patient: Code(s): Z00.00 - Encounter for general adult medical examination without abnormal findings Plan: Patient is advised to eat healthy, keep well hydrated, keep active and have adequate sleep. 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 Escalante radiosurgery Code(s): Z85.810 - Personal history of malignant neoplasm of tongue Plan: Patient is being followed up by ENT and with the recent primary cat scan has been ordered of the soft tissue of the neck (3) Tubular adenoma of colon: Comment: 05/[address] Dr. Altamirano 5years Code(s): D12.6 - Benign neoplasm of colon, unspecified Plan: Discussed with the patient on schedule for colonoscopy this year (4) Impaired glucose tolerance: Code(s): R73.02 - Impaired glucose tolerance (oral) Plan: Decrease the amount of carbohydrate intake, pasta, bread, rice and potatoes are all sugar and that is aside from all the sweet stuff, remember that fruits are good but they are Sweet also. (5) Alcohol abuse: Code(s): F10.10 - Alcohol abuse, uncomplicated Plan: Patient is strongly advised to abstain from alcohol (6) Fatty liver: Code(s): K76.0 - Fatty (change of) liver, not elsewhere classified Plan: Patient is advised to abstain from alcohol and low-fat diet (7) Recurrent depression: Comment: decline counselling Code(s): F33.9 - Major depressive disorder, recurrent, unspecified Plan: Discussed about counseling and therapy (8) Mild anemia: Code(s): D64.9 - Anemia, unspecified Plan: Continue to monitor March 2024 last blood work (9) Mild cognitive impairment: Code(s): G31.84 - Mild cognitive impairment of uncertain or unknown etiology Plan: CT scan done negative results will request for blood work for the next 3 months (10) Compression fracture of L1 vertebra: Code(s): S32.010A - Wedge compression fracture of first lumbar vertebra, initial encounter for closed fracture Plan: Discussed about calcium and vitamin-D and keeping active Plan History of Present Illness The patient is a 74-year-old male presenting for an annual wellness visit. He has a comprehensive medical history that includes hepatic steatosis, impaired glucose tolerance with elevated fasting blood sugar of 113 but normal hemoglobin A1c, and recurrent depression. He also has a history of lumbar compression fracture and tongue cancer diagnosed in 2016, for which he underwent radiation treatment. Mild cognitive impairment is noted, and his last seen date was August 2024. The patient recalls significant weight loss, primarily attributed to reduced dietary intake post-radiation, with current weight being 116 pounds. His last colonoscopy was performed in May 2020 and is due this year. Past ENT consultations for follow-up on cancer status have resulted in a CT scan of the head showing negative results in September 2024, and recent ENT recommendations for a CT scan of the neck's soft tissue. He has mild anemia from blood work last conducted in March 2024, revealing hemoglobin at 13.8. The patient reports consuming 12 cans of beer daily despite previous reduction efforts. Health Maintenance - Screening colonoscopy is recommended this year. - Discussed abstaining from alcohol and maintaining a low-fat diet. - Advised on a wellness plan including regular monitoring. - Blood work to be repeated in 3 months to reassess anemia and other metabolic parameters. - Recommended calcium and vitamin D supplementation. - Encourage regular physical activity. - Follow-up on routine vaccinations, including past administration of shingles (two doses), tetanus, and pneumonia vaccines. - Discussed potential RSV and COVID-19 vaccinations available at pharmacies. Social History - Current nutritional intake consists of one daily meal and a protein drink. - Substance use: Consumes 12 cans of beer daily, occasionally smokes cannabis, and uses a gummy for sleep. - No cigarette smoking reported. - Lives with his ; no new surgeries or major changes in family or personal life noted. - Reports reduced hearing capacity but not significant enough to pursue testing at present. Review of Systems - Neurological: Denies dizziness, fainting, shortness of breath on awakening. - Cardiovascular: Denies chest pain, palpitations. - Gastrointestinal: Denies nausea, vomiting, diarrhea, constipation, or blood in stools; regular bowel movements reported. - Genitourinary: Wakes twice nightly for urination, denies dysuria. - Respiratory: Denies chronic cough or respiratory issues. - Musculoskeletal: Complains of lower back pain; denies recent falls. - General: Denies fever, sensation of something stuck during swallowing, or significant fatigue. Physical Exam General: Cooperative, healthy appearing, comfortable, no acute distress and well developed Orientation: Patient oriented x3 Limitations: No limitations Head: Normal to inspection Ears: Hearing not as good as before, but not an issue Nose: Normal external nose present Face and sinus: Normal facial exam Eyes: Appearance normal, both eyes and all related structures Neck: Normal visual inspection and Yes full ROM Respiratory: Normal respiratory effort and able to speak in complete sentences. Clear to auscultation bilaterally Cardiovascular: Regular rate and rhythm. Normal S1 and S2 GI: Normal to inspection. Soft to palpation and nontender Skin: No rashes or lesions noted Neuro: Patient oriented x3 Extremities: Normal to inspection Results - Labs: Mild anemia (Hemoglobin 13.8 g/dL), blood sugar 113 mg/dL, cholesterol LDL 46. - Imaging: Recent head CT scan in September 2024 was negative for recurrence. Plan I will continue to monitor and manage the patient's hepatic steatosis, impaired glucose tolerance, and recurrent depression, while also addressing weight loss linked to past cancer treatments. A low-fat diet with increased physical activity is advised alongside referral to gastroenterology for a scheduled colonoscopy this year. Symptomatic treatment with ibuprofen is appropriate for managing lumbar compression fracture-related pain, but instructions to take it with meals and monitor renal function are given. I plan repeat blood work including CBC and metabolic panels in three months to monitor anemia and glucose levels. Alcohol cessation is strongly recommended, emphasizing reducing risks associated with elevated consumption. Regular follow-up with ENT and oncology for tongue cancer surveillance will continue with previous imaging results showing no current concerns. Patient was informed and verbally consented to the use of an ambient scribe for clinic note documentation during this visit. Discussion Notes During the consultation, I discussed the need for comprehensive management of alcohol intake reduction and its impact on hepatic health, in addition to recommending a low-fat diet. The rationale behind frequent monitoring of anemia and impaired glucose levels was explained, alongside potential risks related to chronic alcohol use. I discussed referrals for colonoscopy and the role of regular screenings in preventing disease progression. We agreed on repeating blood work in three months, alongside physical activity adaptations to address the weight loss coupled with supplemental calcium and vitamin D. I extended counseling, underscoring the significance of hydration and optimal water consumption. We reviewed previously administered vaccinations and discussed alternative options like RSV and further COVID-19 vaccinations, particularly as preventive strategies in aging individuals. Patient Instructions - Abstain from alcohol and adopt a low-fat diet. - Continue ibuprofen for back pain with food intake. - Schedule and attend the recommended colonoscopy. - Increase water intake to six to eight glasses per day. - Maintain physical activity to sustain health and prevent further weight loss. - Monitor for any new or worsening symptoms and keep follow-up as advised. - Consider returning for check-ups every six months, or sooner if new symptoms arise. Orders: Orders Complete Blood Count Auto Diff Today R73.02 - Impaired glucose tolerance (oral) Comprehensive Met. Panel Today R73.02 - Impaired glucose tolerance (oral) Thyroid Stimulating Hormone Today R73.02 - Impaired glucose tolerance (oral) Prostate Specific Antigen Scr Today R73.02 - Impaired glucose tolerance (oral) Ferritin Today R73.02 - Impaired glucose tolerance (oral) Free T4 (Free Thyroxine) Today R73.02 - Impaired glucose tolerance (oral) Hemoglobin A1c Today R73.02 - Impaired glucose tolerance (oral) Lipid Panel Today E78.00 - Pure hypercholesterolemia, unspecified, R73.02 - Impaired glucose tolerance (oral) Vitamin B12 and Folate Today R73.02 - Impaired glucose tolerance (oral) Referrals Gastroenterology Referral D12.6 - Benign neoplasm of colon, unspecified Quality Reporting (2019) Depression/Bipolar (159/160/161/177) PHQ-9: Total score: 5 Coding Level of Care Code Medicare Subsequent (G0439) Diagnoses Encounter for subsequent annual wellness visit (AWV) in Medicare patient Z00.00 Hx of tongue cancer Z85.810 Tubular adenoma of colon D12.6 Impaired glucose tolerance R73.02 Alcohol abuse F10.10 Fatty liver K76.0 Recurrent depression F33.9 Mild anemia D64.9 Mild cognitive impairment G31.84 Compression fracture of L1 vertebra S32.010A Additional Codes PHQ-9 - 13718 - PHQ-9 Billing: Yes ([id number])
--- OUTSIDE RECORDS SUMMARY | 2024-12-21 09:20 | XMS_ITS | Clinical Summary ---
Author Organization [employer] Address [address] [place] [address] [address] [place] [address] Care Team Providers Care Programmer Analyst Name Role Phone Brenden Odonnell Unavailable Unavailable [...] - 2023-2 5 season) 2024 Influenza Vaccine (Season Ended) 2025 RSV Patients and Pa tients Aged 60 [...] patient's age to complete this topic Meningococcal B Vaccine Aged Out No l onger eligible based on patient's age to complete [...] DENTAL - HSN FULL (MEDICAID) Care Teams Programmer Analyst Relationship Specialty Start Date End Date Brenden Odonnell Health Navigator 02/21/24
== END 2024-12-21 09:43 | disposition home or self-care (01) ==
LOC: HO.HMCH 08:53
PROVIDERS: PCP Internal Medicine; Visit Provider Internal Medicine
DX: Z00.00 Encounter for general adult medical examination without abnormal findings (principal); Z85.810 Personal history of malignant neoplasm of tongue; D12.6 Benign neoplasm of colon, unspecified; S32.010A Wedge compression fracture of first lumbar vertebra, initial encounter for closed fracture; R73.02 Impaired glucose tolerance (oral); F10.10 Alcohol abuse, uncomplicated; K76.0 Fatty (change of) liver, not elsewhere classified; F33.9 Major depressive disorder, recurrent, unspecified; D64.9 Anemia, unspecified; G31.84 Mild cognitive impairment of uncertain or unknown etiology

== ENCOUNTER → 2024-12-21 08:52 | Outpatient (BNVA) | payer MEDICARE, MEDICAID, SELFPAY | PROVIDERS: PCP Internal Medicine; Visit Provider Internal Medicine | DX: Z00.00 Encounter for general adult medical examination without abnormal findings (principal); D12.6 Benign neoplasm of colon, unspecified; R73.02 Impaired glucose tolerance (oral); Z85.810 Personal history of malignant neoplasm of tongue; F10.10 Alcohol abuse, uncomplicated; K76.0 Fatty (change of) liver, not elsewhere classified; F33.9 Major depressive disorder, recurrent, unspecified; D64.9 Anemia, unspecified; G31.84 Mild cognitive impairment of uncertain or unknown etiology; S32.010D Wedge compression fracture of first lumbar vertebra, subsequent encounter for fracture with routine healing | CPT/HCPCS: 96127 ==

== ENCOUNTER 2025-06-22 08:28 | Outpatient (AMB) | payer MEDICARE, MEDICAID, SELFPAY ==
--- OUTSIDE RECORDS SUMMARY | 2025-06-22 08:32 | XMS_ITS | Continuity of Care Document ---
Author Organization [place] - [facility], [facility] Address [address] [place] [address] Assessment No assessment recorded. Plan of Treatment Reminders Order Date Submit Date Provider Last Modified By Organization Details Last Modified Time Details Appointments Establish ed 30 2025 09:00A M GERBER Yanez MD Not available Not available Not available Lab None recorded. Referral None recorded. Procedures None recorded. Surgeries None recorded. Imaging None recorded. Medication Orders None recorded. Patient TargetsNo targets recorded. Patient InstructionsNo instructions recorded. Reason for Referral None Reported. 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, unspecifi ed; Note: Date Diagnosed : 08/10/2016 3:46 PM (C06.9) Not Available [facility] 4 03:08:11 Lesion of oral mucosa 16865864677 52265 Active 2016 Other lesions of oral mucosa; Note: Date Diagnosed : 03/01/2017 10:50 AM (K13.79) Not Available [facility] 4 03:08:11 History of malignant neoplasm of oral cavity 680304948 Active 2016 Personal history of malignant neoplasm of other sites of lip, oral cavity, and pharynx; Note: Date Diagnosed : 7 10:55 AM (Z85.818) Not Available [facility] 4 03:08:12 Follow-up visit Active 2018 Encounter for follow-up examinati on after completed treatment for malignant neoplasm; Note: Date Diagnosed : 10/03/2016 2:14 PM (Z08) ; Start Date : 7 Medical surveilla nce following completed treatment ; Note: Date Diagnosed : 08/08/2018 8:48 AM (Z09) Not Available [facility] 4 03:08:12 Disorder of nasal sinus 9365232 Active 2018 Other specified disorders of nose and nasal sinuses; Note: Date Diagnosed : 08/08/2018 8:48 AM (J34.89) Not Available [facility] 4 03:08:11 Disorder of the nose 05176375 Active 2018 Other specified disorders of nose and nasal sinuses; Note: Date Diagnosed : 08/08/2018 8:48 AM (J34.89) Not Available [facility] 4 03:08:11 Benign neoplasm of oropharyn x 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 Benign neoplasm of other parts of oropharyn x; Note: Date Diagnosed : 11/29/2022 11:41 AM (D10.5) Not Available [facility] 4 03:08:11 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; Note: Date Diagnosed : 12/04/2022 2:37 PM (C11.1) Not Available [facility] 4 03:08:11 Dysphagia 37144591 Active 2022 Dysphagia , unspecifi ed; Note: Date Diagnosed : 04/26/2023 8:58 AM (R13.10) Not Available [facility] 4 03:08:12 Localized swelling of head 61692573553 143918 Active 2022 Localized swelling, mass and lump, head; Note: Date Diagnosed : 06/28/2023 9:12 AM (R22.0) Not Available [facility] 4 03:08:13 Abnormal findings on diagnosti c imaging of skull and head 082008873 Active 2023 Abnormal findings on diagnosti c imaging of skull and head, not elsewhere classifie d; Note: Date Diagnosed : 09/25/2023 9:02 AM (R93.0) Not Available [facility] 4 03:08:12 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 512112366 Active 2023 GERBER SHIPLEY MD [address] [facility],[place] [address], [place], [address] , [place] - [facility] [place] 4 09:05:11 Traumatic ulceratio n of tongue 63710033 Active 2024 GERBER SHIPLEY MD [address] [facility],[place] [address], [place], [address] , [place] - [facility] [place] 5 11:15:09 Facial swelling 814122194 Active 2024 GERBER SHIPLEY MD [address] [facility],[place] [address], [place], [address] , [place] - [facility] [place] 5 09:07:24 Notes:Encounter for other sp ecified postprocedural aftercare Note: Date Diagnosed: 10/03/2016 10:06 AM (Z48.8) Note: Date Diagnosed: 10/03/2016 10:06 AM (Z48.8) Problem Notes None recorded. Procedures Surgical History Date Name Laterality Status Provider Name and Address Organization Details Recorded Time 04/07/2025 FFL_RE completed GERBER SHIPLEY MD [address] [place] [address],[address], [address], [place] - [facility] [place] 04/07/2025 08:53:05 11/30/2024 FFL_RE completed GERBER SHIPLEY MD [address] [facility],[address], [address], [place] - [facility] [place] 11/30/2024 11:07:02 08/03/2024 FFL_RE completed GERBER SHIPLEY MD [address] [facility],[address], [address], [place] [facility] [place] 08/03/2024 11:33:05 04/17/2024 FFL_RE completed GERBER SHIPLEY MD [address] [facility],[address], [address], [place] - [facility] [place] 04/17/2024 09:03:39 01/10/2024 FFL_RE completed GERBER SHIPLEY MD [address] [place] [address], [address], [facility] - [facility] 01/10/2024 09:05:00 Imaging Results None recorded. Procedure Notes None recorded. Medical Equipment None [...] No t Available amoxicill in 500 mg capsule TAKE ONE CAPSULE BY MOUTH EVERY 8 HOURS FOR 7 DAYS active Not Available Not Available No t Available Augmentin 875 mg-125 mg tablet 2018 active Medicati on ID: [id number] D uration Value: 10 Prescri bed By [...] Not Available Not Available No t Available ibuprofen 800 mg tablet TAKE 1 TABLET BY MOUTH EVERY 6 TO 8 HOURS WITH FOOD NEEDED FOR PAIN active Not Available Not Available No t [...] by mouth 2016 active Medicati on ID: [id number] D uration Value: 7 Prescri bed By Name: KARINA Gonzales nd Name: oxycodon e Send Method: E-Prescr ibed Sub s Allowed: subs OK Medic ationGen ericName : oxycodon e Not Available Not Available Not Available acetamino phen 300 mg-codein e 15 mg tablet TAKE ONE TABLET BY MOUTH EVERY 6 HOURS NEEDED active Not Available Not Available No t Available amoxicill in 500 mg tablet TAKE ONE TABLET BY MOUTH THREE TIMES A DAY active Not Available Not Available No t Available acetamino phen ER 650 mg tablet,ex tended release TAKE ONE TABLET BY MOUTH EVERY 8 HOURS FOR 5 DAYS active Not Available Not Available No t Available Augmentin 250 mg-62.5 mg/5 mL oral suspensio n 09/17 completed Medicati on ID: [id number] D uration Value: 10 Brand Name: Augmenti n Send Method: E-Prescr ibed Sub s Allowed: subs OK Speci al Instruct ion: Take 3 cc po BID X 10 days Med icationG enericNa me: Augmenti n Not Available Not Available Not Available dexametha sone 4 mg tablet TAKE 1 TABLET BY MOUTH EVERY 12 HOURS FOR 5 DAYS active Not Available Not Available No t Available folic acid 1 mg tablet TAKE 1 TABLET BY MOUTH DAILY. active Not Available Not Available No t Available Vitamin B-1 100 mg tablet TAKE 1 TABLET BY MOUTH DAILY. active Not Available Not Available No t Available multivita min capsule 2016 active Medicati on ID: [id number] B rand Name: multivit river Sen d Method: E-Prescr ibed Sub s Allowed: subs OK Medic ationGen ericName : multivit river Not Available Not Available Not Available mirtazapi ne 7.5 mg tablet TAKE ONE TABLET BY MOUTH EVERY EVENING AT BEDTIME active Not Available Not Available No t Available chlorhexi dine gluconate 0.12 % mouthwash STARTING ON DAY 4, RINSE MOUTH WITH 15 ML AND SPIT OUT TWICE A DAY FOR 14 DAYS, THEN DISCONTI NUE. DO NOT SWALLOW. active Not Available Not Available No t Available Vitals Date Recorded Body height Body mass index (BMI) Body weight Provider Name and Address Organization Details Last Updated DateTime 04/07/2025 167.64 cm 19.9 kg/m2 02824.86 g Yady Jaime [facility] 04/07/2025 08:51:15 Social History None recorded. Functional Status None recorded. Mental Status None recorded. Family History Nothing Reported. Medical History No medical history recorded. Past Encounters Encounter ID Performer Location Encounter Start Date Encounter Closed Date Diagnosis/Indication Diagnosis SNOMED-CT Code Diagnosis ICD10 Code Diagnosis IMO Codes Diagnosis Note [id number] GERBER SHIPLEY MD [facility] on [address] [place] [address] 04/07/2025 08:43:49 04/07/2025 09:06:06 History of malignant neoplasm of digestive organ 7937504684 5908656 Z85.00 Exam and Laryngosco py showed no evidence of disease. We will continue routine surveillan ce. Screening for malignant neoplasm of respiratory tract 988268495 Z12.2 No evidence of disease on exam or laryngosco py. Neck exam was benign. F/u 4 months. 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 was likely traumatic related to teeth Facial swelling 34753917 6 R22.0 445743 may have been due to his dental disease. We discussed imaging with CT but agreed to defer as he just had tooth extraction s 2 weeks ago. I asked them to call me if it progresses or he develops pain. I will consider imaging if it progresses and will reassess at the next visit. Health Concerns Section Related Observation LastModified by Organization Detai ls LastModified Time None Recorded Concern Status LastModified by Organization Details LastModified Time None Recorded Payers Encounter Date Sequence Insurance Name Policy Number Policy Padilla Covered Member ID Padilla Member ID Guarantor Name 04/07/2025 2 [place] [facility] Addy Roland Jr [id number] Addy Roland Jr 04/07/2025 1 [facility] (MEDICARE REPLACEMENT/A DVANTAGE - HMO) [id number] Addy Roland [id number] Addy Roland Jr Notes Date Note Type Note Provider Name and Address Organization Details Recorded Time 04/07/2025 text/html ROS as noted in the HPI 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 He was treated with XRT which finished 04/18/23. No chemo was given. Denies dysphagia. Denies pain. PET 08/2022 showed resolution of uptake in the right tonsil area and new elongated activity in the left longus coli muscle near C1 likely benign. He has had some mild swelling of the soft tissue along his right jaw predating recent tooth extractions. He had 5 teeth extracted since the last visit. GERBER SHIPLEY MD [address] [place] [address], [place], [address], [place] [facility] 04/07/2025 09:08:34
--- OUTSIDE RECORDS SUMMARY | 2025-06-22 08:32 | XMS_ITS | Data Portability ---
Author Organization [place] - [facility], Allergy Address [address] [address] Assessment No assessment recorded. Plan of Treatment Reminders Order Date Submit Date Provider Last Modified By Organization Details Last Modified Time Details Appointments Establish ed 2025 09:00A Nirali Yanez MD Not available Not available Not [...] Recorded Time Malignant neoplasm of oral cavity 700482804 Active 2016 Malignant neoplasm of mouth, unspecifi ed; Note: Date Diagnosed : 08/10/2016 3:46 PM (C06.9) Not Available [facility] 4 03:08:11 Lesion of oral mucosa 89718477843 45731 Active 2016 Other lesions of oral mucosa; Note: Date Diagnosed : 03/01/2017 10:50 AM (K13.79) Not Available [facility] 4 03:08:11 History of malignant neoplasm of oral cavity 363440027 Active 2016 Personal history of malignant neoplasm of other sites of lip, oral cavity, and pharynx; Note: Date Diagnosed : 7 10:55 AM (Z85.818) Not Available [facility] 4 03:08:12 Follow-up visit Active 2018 Encounter for follow-up examinati on after completed treatment for malignant neoplasm; Note: Date Diagnosed : 10/03/2016 2:14 PM (Z08) ; Start Date : 7 Medical surveilla nce following completed treatment ; Note: Date Diagnosed : 08/08/2018 8:48 AM (Z09) Not Available [facility] 4 03:08:12 Disorder of nasal sinus 3445757 Active 2018 Other specified disorders of nose and nasal sinuses; Note: Date Diagnosed : 08/08/2018 8:48 AM (J34.89) Not Available [facility] 4 03:08:11 Disorder of the nose 90919119 Active 2018 Other specified disorders of nose and nasal sinuses; Note: Date Diagnosed : 08/08/2018 8:48 AM (J34.89) Not Available [facility] 4 03:08:11 Benign neoplasm of oropharyn x 37661465 Active 2022 Benign neoplasm of other parts of oropharyn x; Note: Date Diagnosed : 11/29/2022 11:41 AM (D10.5) Not Available [facility] 4 03:08:11 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 995294282 Active 2022 Malignant neoplasm of pharyngea l tonsil; Note: Date Diagnosed : 12/04/2022 2:37 PM (C11.1) Not Available [facility] 4 03:08:11 Dysphagia 28343601 Active 2022 Dysphagia , unspecifi ed; Note: Date Diagnosed : 04/26/2023 8:58 AM (R13.10) Not Available [facility] 4 03:08:12 Localized swelling of head 04669592206 742629 Active 2022 Localized swelling, mass and lump, head; Note: Date Diagnosed : 06/28/2023 9:12 AM (R22.0) Not Available [facility] 4 03:08:13 Abnormal findings on diagnosti c imaging of skull and head 597671196 Active 2023 Abnormal findings on diagnosti c imaging of skull and head, not elsewhere classifie d; Note: Date Diagnosed : 09/25/2023 9:02 AM (R93.0) Not Available [facility] 4 03:08:12 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 148212727 Active 2023 GERBER SHIPLEY MD [address] [place] [address],[place] [address], [place], [address] , [place] - [facility] 4 09:05:11 Traumatic ulceratio n of tongue 20793964 Active 2024 GERBER SHIPLEY MD [address] [place], [place] [address], [address] , [place] - [facility] 5 11:15:09 Facial swelling 527656143 Active 2024 GERBER SHIPLEY MD [address] [place] [address],[place] [address], [address] , [place] [facility] 5 09:07:24 Notes:Encounter for other sp ecified postprocedural aftercare Note: Date Diagnosed: 10/03/2016 10:06 AM (Z48.8) Note: Date Diagnosed: 10/03/2016 10:06 AM (Z48.8) Problem Notes None recorded. Procedures Surgical History Date Name Laterality Status Provider Name and Address Organization Details Recorded Time 04/07/2025 FFL_RE completed GERBER SHIPLEY MD [facility],[address], [address], [facility] - [facility] 04/07/2025 08:53:05 11/30/2024 FFL_RE completed GERBER SHIPLEY MD [address] [facility] [place],[address], [address], [facility] - [facility] 11/30/2024 11:07:02 08/03/2024 FFL_RE completed GERBER SHIPLEY MD [address] [facility] [place],[address], [address], [facility] - [facility] 08/03/2024 11:33:05 04/17/2024 FFL_RE completed GERBER SHIPLEY MD [address] [facility],[address], [address], [facility] - [facility] 04/17/2024 09:03:39 01/10/2024 FFL_RE completed GERBER SHIPLEY MD [address] [facility],[address], [address], [facility] - [facility] 01/10/2024 09:05:00 Imaging Results None recorded. Procedure [...] mg tablet 2018 active Medicati on ID: [id number] D uration Value: 10 Prescri bed By Name: Gerber kaye MD Brand Name: Augmenti n Send Method: E-Prescr [...] by mouth 2016 active Medicati on ID: [id number] D uration Value: 7 Prescri bed By [...] suspensio n 09/17 completed Medicati on ID: [id number] D uration Value: 10 Brand Name: Niki n Send Method: E-Prescr ibed Sub s [...] min capsule 2016 active Medicati on ID: 121531 B rand Name: multivit river Sen d [...] Updated DateTime 08/03/2024 167.64 cm 19.7 kg/m2 17412.27 g Yady Jaime [place] - [facility] 08/03/2024 11:33:38 Date Recorded Body height Body mass index (BMI) Body weight Provider Name and Address Organization Details Last Updated DateTime 11/30/2024 167.64 cm 19 kg/m2 48621.9 g Yady Jaime [place] [facility] 11/30/2024 10:58:31 Date Recorded Body height Body mass index (BMI) Body weight Provider Name and Address Organization Details Last Updated DateTime 01/10/2024 167.64 cm 19.4 kg/m2 02635.08 g Yady Jaime [place] [facility] 01/10/2024 09:02:14 Date Recorded Body height Body mass index (BMI) Body weight Provider Name and Address Organization Details Last Updated DateTime 04/07/2025 167.64 cm 19.9 kg/m2 90902.86 g Yady Jaime [place] [facility] 04/07/2025 08:51:15 Date Recorded Body height Body mass index (BMI) Body weight Provider Name and Address Organization Details Last Updated DateTime 04/17/2024 167.64 cm 19.7 kg/m2 58391.27 g Yady Jaime [place] [facility] 04/17/2024 08:47:48 Social History None recorded. Functional Status None recorded. Mental Status None recorded. Family History Nothing Reported. Medical History No medical history recorded. Past Encounters Encounter ID Performer Location Encounter Start Date Encounter Closed Date Diagnosis/Indication Diagnosis SNOMED-CT Code Diagnosis ICD10 Code Diagnosis IMO Codes Diagnosis Note [id number] GERBER SHIPLEY MD [facility] on [address] [place] [id number] 01/10/2024 08:45:30 01/10/2024 10:28:37 History of malignant neoplasm of digestive organ 1352779989 6521741 Z85.00 Screening for malignant neoplasm of respiratory tract 960783094 Z12.2 No evidence of disease on exam [...] his chewing. 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 We will continue routine surveillan ce. Screening for malignant neoplasm of respiratory tract 371472542 Z12.2 No evidence of disease on exam or laryngosco py. Neck exam was benign. F/u 4 months. 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 We will continue routine surveillan ce. Screening for malignant neoplasm of respiratory tract 243376372 Z12.2 No evidence of disease on exam or laryngosco py. Neck exam was benign. F/u 4 months. 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 We will continue routine surveillan ce. Screening for malignant neoplasm of respiratory tract 243083820 Z12.2 No evidence of disease on exam or laryngosco py. Neck exam was benign. F/u 4 months. 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 He plans to have this extracted. I expect the ulceration of the tongue is traumatic and will improved after this. I will reexamine at the next visit. [id number] GERBER SHIPLEY MD [facility] on [address] [place] [id number] 04/07/2025 08:43:49 04/07/2025 09:06:06 History of malignant neoplasm of digestive organ 9306852780 2488687 Z85.00 Exam and Laryngosco py showed no evidence of disease. We will continue routine surveillan ce. Screening for malignant neoplasm of respiratory tract 182981600 Z12.2 No evidence of disease on exam or laryngosco py. Neck exam was benign. F/u 4 months. 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 was likely traumatic related to teeth Facial swelling 34759742 6 R22.0 875398 may have been due to his dental [...] Recorded Advance Directives Directive None Recorded Payers Insurance Date Sequence Insurance Name Policy Number Policy Padilla Covered Member ID Padilla Member ID Guarantor Name 04/07/2025 2 [place] [id number] Addy Roland Jr [id number] Addy Roland Jr 04/07/2025 2 [place] [employer] Addy Roland Jr [id number] Addy Roland Jr 04/07/2025 2 [place] [facility] Addy Roland Jr [id number] Addy Roland Jr 04/07/2025 1 [facility] (MEDICARE REPLACEMENT/ ADVANTAGE - HMO) [id number] Addy Roland [id number] Addy Roland Jr Notes Date Note Type Note Provider Name and Address Organization Details Recorded Time 01/10/2024 text/html ROS as noted in the HPI Mr. Roland has a history of T1N0Mx [...] it was not done. GERBER SHIPLEY MD [address] [place] [address], [phone], [facility] - [facility] 01/10/2024 09:19:21 04/17/2024 text/html ROS as noted in the HPI Mr. Roland has a history of T1N0Mx [...] near C1 likely benign. GERBER SHIPLEY MD [address] [place] [address], [phone], [facility] - [facility] 04/17/2024 09:10:47 08/03/2024 text/html ROS as noted in the HPI Mr. Roland has a history of T1N0Mx [...] pain and voice change. GERBER SHIPLEY MD [address] [place] [address], [phone], [facility] - [facility] 08/03/2024 11:34:38 11/30/2024 text/html ROS as noted in the HPI 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 He was treated with XRT which finished 04/18/23. No chemo was given. He is able to eat and drink without a problem, however, he reports poor apatite and little interest in food because it doesn't taste good. Denies pain. PET 08/2022 showed resolution of uptake in the right tonsil area and new elongated activity in the left longus coli muscle near C1 likely benign. He reports his tongue is getting cut by one of his teeth. GERBER SHIPLEY MD [address] [facility],[place] [address], [place], [address], [place] - [facility] 11/30/2024 11:15:57 04/07/2025 text/html ROS as noted in the HPI Mr. Roland has a history of T1N0Mx [...] since the last visit. GERBER SHIPLEY MD [address] [facility] [address], [place], [address], [place] - [facility] 04/07/2025 09:08:34
--- OUTSIDE RECORDS SUMMARY | 2025-06-22 08:32 | XMS_ITS | Clinical Summary ---
Author Organization [facility] Facility Address [address] [address] Care Team Providers Care Educational Guidance Counselor Name Role Phone Sydnee Parmar MD Primary Care Provider [phone] Social History Tobacco Use Types Packs/Day Years [...] Colorectal Cancer Screening: Sigmoidoscopy 1999 Pneumococcal Vaccine: 50+ Ye ars (2 of 2 - PCV) 03/20/2012 03/20/2011 Influenza Vaccine (#1) 2025 Hepatitis B Vaccine Aged Out No longe r eligible based on patient's age to complete this topic Insurance [facility] Medicare Medicare [facility] Care Teams Educational Guidance Counselor Relationship Specialty Start Date End Date Sydnee Parmar MD [facility] [address] [place], [place] PCP - General Internal Medicine 03/07/23
--- OUTSIDE RECORDS SUMMARY | 2025-06-22 08:32 | XMS_ITS | Clinical Summary ---
Author Organization [employer] Address [address] [place] [address] [address] [place] [address] Care Team Providers Care Spaghetti Machine Operator Name Role Phone Brednen Oodnnell Unavailable Unavailable Social History Tobacco Use Types [...] PCV) 03/20/2012 03/20/2011 COVID-19 Vaccine ( - 2024-2 6 season) 2025 Influenza Vaccine (#1) 2025 RSV Patients and Pa tients Aged [...] DENTAL - HSN FULL (MEDICAID) Care Teams Spaghetti Machine Operator Relationship Specialty Start Date End Date Brenden Odonnell Health Navigator 02/21/24
[2025-06-22 08:42] VITALS: BP 112/66; PULSE 92; O2SAT 96
--- NOTE | 2025-06-22 08:42 | A.OFFPC_ITS ---
Vital Signs 06/22/25 08:42 Height 5 ft 6 in Weight 124 lb BMI 20.0 BP 112/66 Blood Pressure Location Lt brachial Position Sitting Pulse 92 Pulse Source Pulse Oximeter Pulse Oximetry (%) 96 Oxygen Delivery Method Room Air Intake Visit Reasons: 6mth f/u - see comments Allergies walnut Allergy (Severe, Verified 06/22/25 08:43) THROAT CLOSES Medication List - Last Reconciled 06/22/25 by Sydnee Parmar MD food supplemt, lactose-reduced (Ensure oral liquid) ea PO BID Tobacco use date assessed: 08/27/24 Fall risk assessment: No Falls in past year Last assessed Fall Risk: 06/22/25 Dental Screening Dental Screen Date: 08/27/24 HPI HPI Comments History of Present Illness Details History of Present Illness The patient is a 75 year old individual presenting for a follow-up visit. The patient was last seen in December and was advised to complete blood work and follow up with a neurology referral for cognitive impairment, neither of which were completed. The patient's past medical history includes tubular adenoma of the colon, hepatic steatosis, alcohol abuse, impaired glucose tolerance, recurrent depression, history of tongue cancer, and a lumbar compression fracture in 2015. The patient is also due for a surveillance colonoscopy, as it has been five years, but was unable to make the appointment with gastroenterology. A neurology appointment was scheduled for March 04 to evaluate memory concerns, but the patient does not recall this and did not attend. The patient reports drinking approximately six beers daily. The patient does not take any hlgx-knk-mbccctt medications. Regarding immunizations, the patient's tetanus and pneumonia shots are up to date. Health Maintenance A new request for fasting blood work has been placed to monitor sugar, liver function, and kidney function. The patient was advised to limit fluid intake a couple of hours before sleep to manage nocturia. The patient was encouraged to maintain adequate hydration and exercise regularly. A follow-up visit will be scheduled after the lab work is completed. Social History - Substance Use: The patient reports dri nking approximately six beers every day. - Nutrition: The patient reports not eat ing a lot but ensures to eat every day. - Exercise: The patient was advised to s salvador active. 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 Father No problems noted. Social History (Updated 12/21/24 @ 09:27 by Sydnee Parmar MD) Housing: House Are you a primary skin care instructor to a significant other at home: No Do you presently have visiting nurse or other home services: No Alcohol intake: current Alcohol intake frequency: 0-2 drinks per day Alcohol type: beer Comment: drinks 6 beers a day, 12 cans in a day Patient Tobacco Use Status: Former Tobacco user Tobacco use type: Cigarette Years Smoked: stopped 2012pot smoking e-Cigarette/Vaping Use: Never Used Second Hand Smoke Exposure: Yes service: No Current occupational status: retired Cognitive needs: No Hearing needs: No Vision needs: No Questionnaire PHQ-9 Over the last 2 weeks, how often have you been bothered by any of the following problems? 1. Little interest or pleasure in doing things: not at all 2. Feeling down, depressed, or hopeless: several days 3. Trouble falling or staying asleep, or sleeping too much: several days 4. Feeling tired or having little energy: several days 5. Poor appetite or overeating: several days 6. Feeling bad about yourself - or that you are a failure or have let yourself or your family down: not at all 7. Trouble concentrating on things, such as reading the newspaper or watching television: several days 8. Moving or speaking so slowly that other people could have noticed. Or the opposite - being so fidgety or restless that you have been moving around a lot more than usual: several days 9. Thoughts that you would be better off or of hurting yourself in some way: not at all Total score: 6 Source: Developed by Pinky Dooley.W. Roni, Zev Gracia and colleagues, with an educational nury from [employer]. Thrive Questionnaire Date Thrive assessed: 08/27/24 I am a: Parent/Caregiver What is your living situation today?: I have a steady place to live Within the past 12 months, did the food you bought not last and you didn't have the money to get more?: Never true Within the past 12 months, did you worry whether your food would run out before you got money to buy more?: Never true Do you have trouble paying for medicines?: No Do you have trouble getting transportation to medical appointments?: No Do you have trouble paying your heating and electricity bill?: Yes Do you have trouble taking care of your child, family member or friend?: No Do you have trouble with day-to-day activities such as bathing, preparing meals, shopping, managing finances, etc.?: No Are you currently unemployed and looking for a job?: No Are you interested in more education?: No Please select the resources that you would like help with: None Currently or been in a relationship where the following occur: No concerns reported THRIVE Score: 1 AUDIT C Alcohol Use Questionnaire (AUDIT-C) 1. How often do you have a drink containing alcohol?: 4 or more times a week 2. How many drinks containing alcohol do you have on a typical day when you are drinking?: 5 or 6 3. How often do you have six or more drinks on one occasion?: Less than monthly Total Score: 7 SIERRA-7 AMB Questionnaire SIERRA-7 Date SIERRA - 7 assessed: 08/27/24 Feeling nervous, anxious, or on edge: 0 = Not at all Not being able to stop or control worryin = Several days Worrying too much about different things: 1 = Several days Trouble relaxin = Not at all Being so restless that it is hard to sit still: 0 = Not at all Becoming easily annoyed or irritable: 0 = Not at all Feeling afraid as if something awful might happen: 0 = Not at all Total SIERRA-7 score (0-4 normal; 5-9 mild; 10-14 moderate; 15-21 severe): 2 Source: Developed by Pinky Dooley Kurt Kroenke and colleagues, with an educational nury from [employer]. Review of Systems Narrative Review of Systems - Constitutional: Denies fevers. - Cardiovascular: Denies chest pain. - Respiratory: Denies coughing. - Gastrointestinal: Denies nausea or vomiting. Reports normal bowel movements and denies constipation. - Genitourinary: Reports nocturia, waking up three times per night to urinate. - Neurological: Reports memory problems. Physical exam (Primary Care) Vital Signs: Last Vital Signs Pulse 92 06/22/25 08:42 BP 112/66 06/22/25 08:42 Pulse Ox 96 06/22/25 08:42 Oxygen Delivery Method Room Air 06/22/25 08:42 BMI result Body Mass Index 20.0 Tobacco/Smoking Status: Tobacco use Status Tobacco use date assessed 08/27/24 06/22/25 08:47 Patient Tobacco Use Status Former Tobacco user 06/22/25 08:47 Tobacco use type Cigarette 06/22/25 08:47 e-Cigarette/Vaping Use Never Used 06/22/25 08:47 PHQ-9: PHQ-9 Score PHQ-9: Total score 6 06/22/25 09:00 Thrive Assessment: Date of Thrive Assessment Date Thrive assessed 08/27/24 06/22/25 08:47 Currently or been in a relationship where the following occur: No concerns reported Narrative Physical Exam Const General: alert; No acute distress Eyes Conjunctivae: conjunctivae normal Resp Auscultation: clear to auscultation bilaterally Cardio Rate: regular rate Rhythm: regular rhythm GI Inspection: Yes normal to inspection Extrem General: Yes normal to inspection and No edema Office Procedures Flu Questionnaire Does the patient have a severe egg allergy?: No Does the patient have severe life threatening allergies?: No Does the patient have a fever or illness today?: No Has the patient ever had Guillain-[place] Syndrome?: No Has the patient ever had any past reaction to a flu shot?: No Immunizations Fluarix [id number] (PF) 45 mcg (15 mcg x 3)/0.5 mL IM syringe Performing Provider: Sydnee Parmar MD [facility] Administered by: Leona Viera CMA on 06/22/25 09:00 Dose Route Admin Location Dispensed Lot Number Expiration Date [facility] Goring Cutter 0.5 mL IM Left Deltoid 0.5 mL [id number] 01/18/26 [id number] [employer] VIS Given Date VIS Provided VIS Publication Date 06/22/25 Single Vaccine 24 Eligibility Eligibility Date Funding Source Not [facility] Eligible 06/22/25 Private Coding Level of Care Code Complex visit Add On G2211 Diagnoses Impaired glucose tolerance R73.02 Fatty liver K76.0 Tubular adenoma of colon D12.6 Mild cognitive impairment G31.84 Alcohol abuse F10.10 Recurrent depression F33.9 Assessment & Plan Assessment & Plan (1) Impaired glucose tolerance: Code(s): R73.02 - Impaired glucose tolerance (oral) Category: Medical Plan: Decrease the amount of carbohydrate intake, pasta, bread, rice and potatoes are all sugar and that is aside from all the sweet stuff, remember that fruits are good but they are Sweet also. (2) Fatty liver: Code(s): K76.0 - Fatty (change of) liver, not elsewhere classified Category: Medical Plan: Low-fat diet and exercise (3) Tubular adenoma of colon: Comment: 05/2020 Dr. Canela 5years Code(s): D12.6 - Benign neoplasm of colon, unspecified Category: Medical Plan: Patient is reminded about colonoscopy (4) Mild cognitive impairment: Code(s): G31.84 - Mild cognitive impairment of uncertain or unknown etiology Category: Medical Plan: Reminded patient about the referral but patient no showed (5) Alcohol abuse: Comment: 6 drinks a day(06/2025) Code(s): F10.10 - Alcohol abuse, uncomplicated Category: Social Hx Plan: Strongly advised to abstain from alcohol (6) Recurrent depression: Comment: decline counselling Code(s): F33.9 - Major depressive disorder, recurrent, unspecified Category: Medical Plan: Discussed about counseling and therapy Plan Plan Patient was informed and verbally consented to the use of an ambient scribe for clinic note documentation during this visit. 1. Cognitive Impairment The patient reports memory issues, and a prior referral to neurology to evaluate for dementia was not completed. The patient was provided with the contact number for the neurology specialist to reschedule the appointment. 2. Alcohol Abuse The patient reports consuming about six beers daily. Counseled the patient on the correlation between alcohol and memory issues and the importance of reducing consumption for overall health. The patient agreed to work on reducing alcohol intake. Pending blood work will be used to monitor liver function. 3. Screening For Malignant Neoplasm Of Colon The patient has a history of tubular adenoma and is due for a surveillance colonoscopy, as five years have passed since the last one. The patient missed the previous gastroenterology appointment. The patient was given the contact information for the wood boat builder supervisor to reschedule. 4. Encounter For Immunization The patient will receive an influenza vaccine during today's visit. The patient was informed about the availability of a new, two-part shingles vaccine, which is recommended. Tetanus and pneumonia immunizations are up to date. Discussion Notes I reviewed the patient's history and noted non-adherence to prior recommendations, including pending blood work and specialist referrals. I explained the importance of the neurology consultation to evaluate the patient's cognitive impairment for possible dementia, and the need for a surveillance colonoscopy with gastroenterology due to a history of tubular adenoma. I provided the contact numbers for both specialists to facilitate rescheduling. We discussed the patient's reported alcohol consumption of about six beers per day. I counseled the patient on the link between alcohol and memory problems and the long-term risks to liver health, strongly advising a reduction in intake, which the patient agreed to work on. I ordered new fasting labs to check blood sugar, as well as liver and kidney function. I also reviewed the patient's vaccination status, confirming the patient will receive a flu shot today and recommending the new two-part shingles vaccine. Finally, I provided general health guidance on hydration and exercise. Patient Instructions - Please go to the lab for a fasting blood test. Do not eat for 8 hours before the test. You can have sips of water. - Call the neurology (brain and nerve) specialist to make an appointment to check on your memory problems. The contact number has been provided. - Call the gastroenterology (stomach and intestines) specialist to schedule a colon test (colonoscopy), as it is time for your screening. The contact number has been provided. - You will receive your flu shot today. - A new, more effective vaccine for shingles is available at the pharmacy. It is a two-shot series and is recommended for you. - Please work on reducing the amount of alcohol you drink. It is important for your memory and liver health. - To avoid waking up at night to urinate, try to limit drinking fluids for a couple of hours before you go to sleep. - Remember to drink enough water during the day and keep yourself moving with regular exercise. - Please schedule a follow-up appointment at the lead front desk agent to review your blood work results. Orders: Orders Influenza [id number] Immunization Today Z23 - Encounter for immunization
== END 2025-06-22 09:07 | disposition home or self-care (01) ==
LOC: HO.HMCH 08:29
PROVIDERS: PCP Internal Medicine; Visit Provider Internal Medicine
DX: R73.02 Impaired glucose tolerance (oral) (principal); K76.0 Fatty (change of) liver, not elsewhere classified; D12.6 Benign neoplasm of colon, unspecified; G31.84 Mild cognitive impairment of uncertain or unknown etiology; F10.10 Alcohol abuse, uncomplicated; F33.9 Major depressive disorder, recurrent, unspecified; Z23 Encounter for immunization

== ENCOUNTER → 2025-06-22 08:28 | Outpatient (BNVA) | payer MEDICARE, MEDICAID, SELFPAY | PROVIDERS: PCP Internal Medicine; Visit Provider Internal Medicine | DX: K76.0 Fatty (change of) liver, not elsewhere classified (principal); R73.02 Impaired glucose tolerance (oral); D12.6 Benign neoplasm of colon, unspecified; G31.84 Mild cognitive impairment of uncertain or unknown etiology; F10.10 Alcohol abuse, uncomplicated; F33.9 Major depressive disorder, recurrent, unspecified; Z13.31 Encounter for screening for depression; Z23 Encounter for immunization | CPT/HCPCS: 90471; 90656; 96127; 99212 ==

== ENCOUNTER 2025-07-06 08:02 | Outpatient (REF) | payer MEDICARE, MEDICAID, SELFPAY ==
--- OUTSIDE RECORDS SUMMARY | 2025-04-27 08:40 | XMS_ITS ---
Author Organization [facility] Address [address] [place] [address] Care Team Providers Care Transfer Specialist Name Role Phone Sydnee Parmar MD Primary Care Provider Ceasar Casas [phone] REASON FOR VISIT Patient presents today for a colon screening Encounters Encounter Location Date Provider Diagnosis [facility] [address] [place] [address] 04/27/2025 Ceasar Altamirano Plan Of Treatment Next Appt Details Provider Name:Ceasar Altamirano , 08/24/2025 09:30:00 AM, [address], [address], [place], [address], Progress Notes * LONA ARGUETA JrDOB:[birth year] (75 yo M)Acc No.[id number]:04/27/2025 Progress Notes Patient: Bertha LONA STONE Jr Provider: Renata Altamirano MD :1950 A ge:74 Y S ex:Male Date:04/27/2025 Address:[address] [id number] Pcp:Sydnee Parmar MD Subjective: * Chief Complaints: * P atient presents today for a colon screening * The named appointment provid er may or may not be the originator of this progress note, and it is not deemed complete until electronically signed by the appointment provider. Sign off status: Pending * Provider: Renata Altamirano MD Date: 1 Generated for Sara sanabria/Ольга/eTransmitting on: 09/06/2024 08:15 AM EST
--- OUTSIDE RECORDS SUMMARY | 2025-07-06 08:15 | XMS_ITS | Clinical Summary ---
Author Organization [facility] [employer] Address [address] [place] [address] [address] [place] [address] Care Team Providers Care Distribution Associate Name Role Phone Brenden Odonnell Unavailable Unavailable [...] DENTAL - HSN FULL (MEDICAID) Care Teams Distribution Associate Relationship Specialty Start Date End Date Brenden Odonnell Health Navigator 02/21/24
--- OUTSIDE RECORDS SUMMARY | 2025-07-06 08:16 | XMS_ITS | Data Portability ---
Author Organization [place] - [facility], Allergy Address [address] [address] Assessment No assessment recorded. 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, unspecifi ed; Note: Date Diagnosed : 08/10/2016 3:46 PM (C06.9) Not Available [facility] 4 03:08:11 Lesion of oral mucosa 37253208197 80753 Active 2016 Other lesions of oral mucosa; Note: Date Diagnosed : 03/01/2017 10:50 AM (K13.79) Not Available [facility] 4 03:08:11 History of malignant neoplasm of oral cavity 372625823 Active 2016 Personal history of malignant neoplasm of other sites of lip, oral cavity, and pharynx; Note: Date Diagnosed : 7 10:55 AM (Z85.818) Not Available [facility] 4 03:08:12 Follow-up visit Active 2018 Encounter for follow-up examinati on after completed treatment for malignant neoplasm; Note: Date Diagnosed : 10/03/2016 2:14 PM (Z08) ; Start Date : 7 Medical surveilla nce following completed treatment ; Note: Date Diagnosed : 08/08/2018 8:48 AM (Z09) Not Available [facility] 4 03:08:12 Disorder of nasal sinus 8484711 Active 2018 Other specified disorders of nose and nasal sinuses; Note: Date Diagnosed : 08/08/2018 8:48 AM (J34.89) Not Available [facility] 4 03:08:11 Disorder of the nose 86696315 Active 2018 Other specified disorders of nose and nasal sinuses; Note: Date Diagnosed : 08/08/2018 8:48 AM (J34.89) Not Available [facility] 4 03:08:11 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 Benign neoplasm of other parts of oropharyn x; Note: Date Diagnosed : 11/29/2022 11:41 AM (D10.5) Not Available [facility] 4 03:08:11 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; Note: Date Diagnosed : 12/04/2022 2:37 PM (C11.1) Not Available [facility] 4 03:08:11 Dysphagia 50098640 Active 2022 Dysphagia , unspecifi ed; Note: Date Diagnosed : 04/26/2023 8:58 AM (R13.10) Not Available [facility] 4 03:08:12 Localized swelling of head 61364405770 408732 Active 2022 Localized swelling, mass and lump, head; Note: Date Diagnosed : 06/28/2023 9:12 AM (R22.0) Not Available [facility] 4 03:08:13 Abnormal findings on diagnosti c imaging of skull and head 088919156 Active 2023 Abnormal findings on diagnosti c imaging of skull and head, not elsewhere classifie d; Note: Date Diagnosed : 09/25/2023 9:02 AM (R93.0) Not Available [facility] 4 03:08:12 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 007551804 Active 2023 GERBER SHIPLEY MD [address] [place] [address],[place] [address], [place], [address] , [place] - [facility] 4 09:05:11 Traumatic ulceratio n of tongue 21525488 Active 2024 GERBER SHIPLEY MD [address] [place], [place] [address], [address] , [place] [facility] 5 11:15:09 Facial swelling 907970202 Active 2024 GERBER SHIPLEY MD [address] [place] [address],[place] [address], [address] , [place] [facility] 5 09:07:24 Notes:Encounter for other sp ecified postprocedural aftercare Note: Date Diagnosed: 10/03/2016 10:06 AM (Z48.8) Note: Date Diagnosed: 10/03/2016 10:06 AM (Z48.8) Problem Notes None recorded. Procedures Surgical History Date Name Laterality Status Provider Name and Address Organization Details Recorded Time 04/07/2025 FFL_RE completed GERBER SHIPLEY MD [facility], [address], [facility] - [facility] 04/07/2025 08:53:05 11/30/2024 FFL_RE completed GERBER SHIPLEY MD [facility] [place],[address], [address], [facility] - [facility] 11/30/2024 11:07:02 08/03/2024 FFL_RE completed GERBER SHIPLEY MD [facility] [place],[address], [address], [facility] - [facility] 08/03/2024 11:33:05 04/17/2024 FFL_RE completed GERBER SHIPLEY MD 100 [facility],[address], [address], [facility] - [facility] 04/17/2024 09:03:39 01/10/2024 FFL_RE completed GERBER SHIPLEY MD 100 [facility],[address], [address], [facility] - [facility] 01/10/2024 09:05:00 Imaging Results None recorded. [...] mg tablet 2018 active Medicati on ID: [id number] D uration Value: 10 Prescri bed By [...] by mouth 2016 active Medicati on ID: [id number] D uration Value: 7 Prescri bed By [...] suspensio n 09/17 completed Medicati on ID: [id number] D uration Value: 10 Brand Name: Niki [...] min capsule 2016 active Medicati on ID: [id number] B rand Name: multivit river Sen d [...] Updated DateTime 08/03/2024 167.64 cm 19.7 kg/m2 22052.27 g Yady Jaime [place] - [facility] 08/03/2024 11:33:38 Date Recorded Body height Body mass index (BMI) Body weight Provider Name and Address Organization Details Last Updated DateTime 11/30/2024 167.64 cm 19 kg/m2 52281.9 g Yady Jaime [place] - [facility] 11/30/2024 10:58:31 Date Recorded Body height Body mass index (BMI) Body weight Provider Name and Address Organization Details Last Updated DateTime 01/10/2024 167.64 cm 19.4 kg/m2 76492.08 g Yady Jaime [place] - [facility] 01/10/2024 09:02:14 Date Recorded Body height Body mass index (BMI) Body weight Provider Name and Address Organization Details Last Updated DateTime 04/07/2025 167.64 cm 19.9 kg/m2 84742.86 g Yady Jaime [place] - [facility] 04/07/2025 08:51:15 Date Recorded Body height Body mass index (BMI) Body weight Provider Name and Address Organization Details Last Updated DateTime 04/17/2024 167.64 cm 19.7 kg/m2 42310.27 g Yady Jaime [place] - [facility] 04/17/2024 08:47:48 Social History None recorded. Functional Status None recorded. Mental Status None recorded. Family History Nothing Reported. Medical History No medical history recorded. Past Encounters Encounter ID Performer Location Encounter Start Date Encounter Closed Date Diagnosis/Indication Diagnosis SNOMED-CT Code Diagnosis ICD10 Code Diagnosis IMO Codes Diagnosis Note [id number] GERBER SHIPLEY MD [facility] on [address] [place] [address] 01/10/2024 08:45:30 01/10/2024 10:28:37 History of malignant neoplasm of digestive organ [id number] 0975239 Z85.00 Screening for malignant neoplasm of respiratory tract 801106135 Z12.2 No evidence of disease on exam [...] his chewing. 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 We will continue routine surveillan ce. Screening for malignant neoplasm of respiratory tract 316624280 Z12.2 No evidence of disease on exam or laryngosco py. Neck exam was benign. F/u 4 months. 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 We will continue routine surveillan ce. Screening for malignant neoplasm of respiratory tract 641584112 Z12.2 No evidence of disease on exam or laryngosco py. Neck exam was benign. F/u 4 months. 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 We will continue routine surveillan ce. Screening for malignant neoplasm of respiratory tract 844675100 Z12.2 No evidence of disease on exam or laryngosco py. Neck exam was benign. F/u 4 months. 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 He plans to have this extracted. I expect the ulceration of the tongue is traumatic and will improved after this. I will reexamine at the next visit. [id number] GERBER SHIPLEY MD [facility] on [address] [place] [phone] 04/07/2025 08:43:49 04/07/2025 09:06:06 History of malignant neoplasm of digestive organ 9353699663 2777873 Z85.00 Exam and Laryngosco py showed no evidence of disease. We will continue routine surveillan ce. Screening for malignant neoplasm of respiratory tract 355098173 Z12.2 No evidence of disease on exam or laryngosco py. Neck exam was benign. F/u 4 months. 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 was likely traumatic related to teeth Facial swelling 39061468 6 R22.0 [id number] may have been due to his dental [...] Name 04/07/2025 2 [place] [id number] Addy Roland Jr [id number] Addy Roland Jr 04/07/2025 2 [place] [employer] Addy Roland Jr [id number] Addy Roland Jr 04/07/2025 2 [place] [facility] Addy Roland Jr [id number] Addy Roland Jr 04/07/2025 1 [facility] (MEDICARE REPLACEMENT/ ADVANTAGE - HMO) [id number] Addy Roland [id number] Addy Roland Jr Notes Date Note Type [...] it was not done. GERBER SHIPLEY MD [address] [place] [address], [address], [facility] - [facility] 01/10/2024 09:19:21 04/17/2024 text/html ROS as noted [...] near C1 likely benign. GERBER SHIPLEY MD [address] [place] [address], [address], [facility] - [facility] 04/17/2024 09:10:47 08/03/2024 text/html ROS as noted [...] pain and voice change. GERBER SHIPLEY MD [address] [place] [address], [address], [facility] - [facility] 08/03/2024 11:34:38 11/30/2024 text/html ROS as noted [...] of his teeth. GERBER SHIPLEY MD 100 [facility],[place] [address], [place], [address], [place] - [facility] 11/30/2024 11:15:57 04/07/2025 text/html ROS as noted [...] the last visit. GERBER SHIPLEY MD 100 [facility] 100, [place], [address], [place] [facility] 04/07/2025 09:08:34
--- OUTSIDE RECORDS SUMMARY | 2025-07-06 08:16 | XMS_ITS | Patient Health Record ---
Author Organization [facility] Address [address] [place] [address] Care Team Providers Care Agriscience Instructor Name Role Phone Sydnee Parmar MD Primary Care Provider Ceasar Casas [phone] Reason For Referral No Information Medications Medication SIG (Take, Route, Fr equency, Duration) Notes Start Date End Date Status Multivitamin Adults Active Immunizations Vaccine Route Administration Date Status Comme nts Influenza Unknown 04/21/2020 Administered Social History Social History Additional Details Category Social Info Options Details Miscellaneous: Marital status: Occupation: retired Section Notes: Nonsmoker since 06/2012; dri nks at least 6 beers on the weekends and some beer during the week Nonsmoker since 06/2012; dri nks at least 6 beers daily Problems Problem Type SNOMED Code ICD Code Onset Dates Problem Status W/U Status Risk Notes Problem Screening for malignant neoplasm of colon (480577312) Encounter for screening for malignant neoplasm of colon (Z12.11) Active confirmed Problem History of adenomatous polyp of colon (505203170) Hx of adenomatous colonic polyps (Z86.010) Active confirmed Problem Pre-procedure evaluation check (234450701) Pre-procedural examination (Z01.818) Active confirmed Encounters Encounter Location Date Provider Diagnosis [facility] [address] [place] [address] 04/27/2025 Ceasar Altamirano Plan Of Treatment Pending Test Test Name Order Date LIVER PROFILE 08/20/2014 IRON + IBC (FE) 08/20/2014 FERRITIN 08/20/2014 CBC w DIFF 08/20/2014 PROTHROMBIN TIME (PT, INR) 08/20/2014 HEPATITIS B PROFILE 08/20/2014 HEPATITIS C ANTIBODY 08/20/2014 [id number] (A1A) 08/20/2014 MITOCHONDRIAL AB 08/20/2014 SMOOTH MUSCLE ANTIBODIES 08/20/2014 FLUOR. ANTINUCLEAR AB SCREEN (JEFE) 07/24 HEPATITIS A ANTIBODY-IGG 08/20/2014 Future Test Test Name Order Date COLONOSCOPY 08/20/2014 COLONOSCOPY 04/21/2020 Next Appt Details Provider Name:Ceasar Altamirano , 08/24/2025 09:30:00 AM, [address] [facility], [address], [place], [address], Medical (General) History Medical History History ICD Code Denies [place],DM,CVA,Lung disease,renal dise ase Reports a colonoscopy with Scotty Awad in approx 2004 with the removal of polyps Depression Colonoscopy 11/2014 with small tubular ad enomas removed Tongue cancer as below Surgical History Surgery Date(Month/Year) Appendectomy Hernia repair Tongue cancer with surgery a t [facility] in approx 2016--right neck dissection and partial tongue resection
--- OUTSIDE RECORDS SUMMARY | 2025-07-06 08:16 | XMS_ITS | Continuity of Care Document ---
Author Organization [place] - [facility], [facility] Address [address] [facility] [place] [address] Assessment No assessment recorded. 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, unspecifi ed; Note: Date Diagnosed : 08/10/2016 3:46 PM (C06.9) Not Available [facility] 4 03:08:11 Lesion of oral mucosa 22738674344 46822 Active 2016 Other lesions of oral mucosa; Note: Date Diagnosed : 03/01/2017 10:50 AM (K13.79) Not Available [facility] 4 03:08:11 History of malignant neoplasm of oral cavity 707845452 Active 2016 Personal history of malignant neoplasm of other sites of lip, oral cavity, and pharynx; Note: Date Diagnosed : 7 10:55 AM (Z85.818) Not Available [facility] 4 03:08:12 Follow-up visit Active 2018 Encounter for follow-up examinati on after completed treatment for malignant neoplasm; Note: Date Diagnosed : 10/03/2016 2:14 PM (Z08) ; Start Date : 7 Medical surveilla nce following completed treatment ; Note: Date Diagnosed : 08/08/2018 8:48 AM (Z09) Not Available [facility] 4 03:08:12 Disorder of nasal sinus 3915647 Active 2018 Other specified disorders of nose and nasal sinuses; Note: Date Diagnosed : 08/08/2018 8:48 AM (J34.89) Not Available [facility] 4 03:08:11 Disorder of the nose 73011479 Active 2018 Other specified disorders of nose and nasal sinuses; Note: Date Diagnosed : 08/08/2018 8:48 AM (J34.89) Not Available [facility] 4 03:08:11 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; Note: Date Diagnosed : 11/29/2022 11:41 AM (D10.5) Not Available [facility] 4 03:08:11 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; Note: Date Diagnosed : 12/04/2022 2:37 PM (C11.1) Not Available [facility] 4 03:08:11 Dysphagia 89505065 Active 2022 Dysphagia , unspecifi ed; Note: Date Diagnosed : 04/26/2023 8:58 AM (R13.10) Not Available [facility] 4 03:08:12 Localized swelling of head 36090788772 193525 Active 2022 Localized swelling, mass and lump, head; Note: Date Diagnosed : 06/28/2023 9:12 AM (R22.0) Not Available [facility] 4 03:08:13 Abnormal findings on diagnosti c imaging of skull and head 997144567 Active 2023 Abnormal findings on diagnosti c imaging of skull and head, not elsewhere classifie d; Note: Date Diagnosed : 09/25/2023 9:02 AM (R93.0) Not Available [facility] 4 03:08:12 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 Active 2023 GERBER SHIPLEY MD 100 [facility],[place] [address], [place], [address] , [place] - [facility] [place] 4 09:05:11 Traumatic ulceratio n of tongue 55694751 Active 2024 GERBER SHIPLEY MD [address] [facility],[place] [address], [place], [address] , [place] [facility] [place] 5 11:15:09 Facial swelling 704807610 Active 2024 GERBER SHIPLEY MD 100 [facility],[place] [address], [place], [address] , [place] - [facility] 5 09:07:24 Notes:Encounter for other sp ecified postprocedural aftercare Note: Date Diagnosed: 10/03/2016 10:06 AM (Z48.8) Note: Date Diagnosed: 10/03/2016 10:06 AM (Z48.8) Problem Notes None recorded. Procedures Surgical History Date Name Laterality Status Provider Name and Address Organization Details Recorded Time 04/07/2025 FFL_RE completed GERBER SHIPLEY MD [address] [place] [address],[address], [address], [place] - [facility] [place] [place] 04/07/2025 08:53:05 11/30/2024 FFL_RE completed GERBER SHIPLEY MD 100 [facility],[address], [address], [place] [facility] [place] 11/30/2024 11:07:02 08/03/2024 FFL_RE completed GERBER SHIPLEY MD 100 [facility],[address], [address], [place] [facility] [place] 08/03/2024 11:33:05 04/17/2024 FFL_RE completed GERBER SHIPLEY MD 100 [facility],[address], [address], [place] [facility] [place] 04/17/2024 09:03:39 01/10/2024 FFL_RE completed GERBER SHIPLEY MD [address] [place] [address], [address], [facility] - [facility] 01/10/2024 09:05:00 Imaging Results None recorded. [...] mg tablet 2018 active Medicati on ID: [id number] D uration Value: 10 Prescri bed By [...] by mouth 2016 active Medicati on ID: 579334 D uration Value: 7 Prescri bed By [...] suspensio n 09/17 completed Medicati on ID: 239212 D uration Value: 10 Brand Name: Augmenti [...] min capsule 2016 active Medicati on ID: 522235 B rand Name: multivit river Sen d [...] Updated DateTime 04/07/2025 167.64 cm 19.9 kg/m2 41272.86 g Yady Jaime [facility] 04/07/2025 08:51:15 Social History None recorded. Functional Status None recorded. Mental Status None recorded. Family History Nothing Reported. Medical History No medical history recorded. Past Encounters Encounter ID Performer Location Encounter Start Date Encounter Closed Date Diagnosis/Indication Diagnosis SNOMED-CT Code Diagnosis ICD10 Code Diagnosis IMO Codes Diagnosis Note [id number] GERBER SHIPLEY MD [facility] on [address] [place] [address] 04/07/2025 08:43:49 04/07/2025 09:06:06 History of malignant neoplasm of digestive organ [id number] 2008796 Z85.00 Exam and Laryngosco py showed no evidence of disease. We will continue routine surveillan ce. Screening for malignant neoplasm of respiratory tract 526831693 Z12.2 No evidence of disease on exam or laryngosco py. Neck exam was benign. F/u 4 months. 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 was likely traumatic related to teeth Facial swelling 96005456 6 R22.0 555121 may have been due to his dental [...] Padilla Member ID Guarantor Name 04/07/2025 2 [place] [facility] Addy Roland Jr [id number] Addy Roland Jr 04/07/2025 1 [facility] (MEDICARE REPLACEMENT/A DVANTAGE - HMO) [id number] Addy Roland [id number] Addy Roland Jr Notes Date Note Type [...] since the last visit. GERBER SHIPLEY MD [address] [place] [address], [place], [address], [place] - [facility] 04/07/2025 09:08:34
[2025-07-06 10:48] LABS: MANUAL DIFF FLAG NO
[2025-07-06 11:00] LABS: Hematocrit 37.0 % (42.0-52.0); Hemoglobin 12.1 g/dl (14.0-18.0); Imm Gran Abs Auto 0.04 X10*3/uL (0.00-0.03); Imm Gran Pct Auto 0.6 % (0.0-0.4); Lymphocytes Absolute Auto 0.8 X10*3/uL (1.2-4.9); Mean Corpuscular HGB Conc 32.7 g/dl (31.0-36.0); Mean Corpuscular Hemoglobin 29.2 pg (27.0-33.0); Mean Corpuscular Volume 89.2 fL (80.0-98.0); NRBC Abs Auto 0.000 X10*3/uL (0.0-0.012); NRBC Pct Auto 0.0 /100WBC (0.0-0.2); Platelet Count 360 X10*3/uL (160-400); Red Blood Count 4.15 X10*6/uL (4.60-5.80); White Blood Count 6.4 X10*3/uL (4.8-10.8)
[2025-07-06 12:01] LABS: Alanine Aminotransferase 21 U/L (0-40); Albumin Level 4.3 g/dL (3.5-5.0); Alkaline Phosphatase 74 U/L (39-117); Anion Gap 17 (12-20); Aspartate Amino Transferase 48 U/L (5-37); Blood Urea Nitrogen 6 mg/dL (9-16); Calcium 9.7 mg/dL (8.4-10.2); Carbon Dioxide 28 mmol/L (22-29); Chloride 97 mmol/L (96-108); Cholesterol 164 mg/dL (<200); Estimated Glomerular Filt Rate > 60; HDL Cholesterol 119 mg/dL (>40); Potassium 4.5 mmol/L (3.3-5.1); Sodium 137 mmol/L (135-145); Total Protein 8.3 g/dL (6.5-8.0); Triglycerides 40 mg/dL (<150)
[2025-07-06 12:06] LABS: Ferritin 82 ng/mL (20-250); Free T4 (Free Thyroxine) 1.03 ng/dL (0.71-1.85); Thyroid Stimulating Hormone 2.66 uIU/mL (0.32-4.0)
[2025-07-06 12:10] LABS: Folate 11.6 ng/mL (> or = 4.0); Vitamin B12 703 pg/mL (200-900)
== END 2025-07-06 08:03 | disposition home or self-care (01) ==
LOC: HO.10HDL 08:02
PROVIDERS: Visit Provider Internal Medicine
DX: R73.02 Impaired glucose tolerance (oral) (principal); E78.00 Pure hypercholesterolemia, unspecified; Z12.5 Encounter for screening for malignant neoplasm of prostate
CPT/HCPCS: 36415; 80053; 80061; 82607; 82728; 82746; 83036; 84153; 84439; 84443; 85025